=== PATIENT | female | born 1980 | race Two or more races ===

== ENCOUNTER 2022-09-06 14:47 | Emergency (ER) | payer OTHER, SELFPAY ==
--- NOTE | ~2022-09-06 | CT_ITS ---
EXAMINATION: CT HEAD WITHOUT CONTRAST CLINICAL INFORMATION: Left-sided headache COMPARISON: None TECHNIQUE: Contiguous axial imaging was performed from the skull base to vertex without intravenous administration of contrast. This CT examination was performed using dose optimization techniques as appropriate, variously including the following: *Automated exposure control *Adjustment of mA and/or kV according to patient size (this includes techniques or standardized protocols for targeted exams where dose is matched to indication/reason for exam; i.e. extremities or head) *Use of iterative reconstruction technique DLP: 633 mGy-cm FINDINGS: There is no evidence of acute intracranial hemorrhage or territorial infarction. No abnormal mass effect or midline shift is seen. Szymanski to white matter differentiation is well preserved. No extra-axial fluid collections are identified. No hydrocephalus. No significant volume loss. There is no abnormal attenuation within the brain parenchyma. No acute osseous or soft tissue abnormality. The mastoid air cells and visualized portions of the paranasal sinuses are well aerated. CT/CT head/brain wo IV con IMPRESSION: No acute intracranial pathology.
[2022-09-06 15:35] VITALS: BP 169/94; PULSE 96; RESP 16; TEMP 36.8; O2SAT 98; BMI 33.2
--- NOTE | 2022-09-06 15:35 | ED_ITS ---
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 Patient has taken Tylenol for the headache which has improved but she states it returned. <Mirtha Daigle MD - Last Filed: 09/06/22 22:00> Related Data Allergies/adverse reactions: Allergies Allergy/AdvReac Type Severity Reaction Status Date / Time No Known Allergies Allergy Unverified 09/06/22 15:42 <JESSICA Giron - Last Filed: 09/06/22 15:42> Review of Systems Review of Systems: Pertinent positives and negatives as stated in HPI <Mirtha Daigle MD - Last Filed: 09/06/22 22:00> [facility] Past Medical History Source: nursing notes reviewed <Mirtha Daigle MD - Last Filed: 09/06/22 22:00> Social History Social History: Social History Smoked in Last 30 Days: No Advance Directives: No Advance Directives Information Provided: No Patient : No <JESSICA Giron - Last Filed: 09/06/22 15:42> Physical Exam ED Vital Signs: Vital Signs - 24 hr 09/06/22 15:35 09/06/22 20:38 Temperature 98.2 F Pulse Rate 96 78 Respiratory Rate 16 16 Blood Pressure 169/94 H 130/83 Pulse Oximetry 98 99 Oxygen Delivery Method Room Air Room Air BMI result Body Mass Index 33.2 <JESSICA Giron - Last Filed: 09/06/22 15:42> Vital Signs - 24 hr 09/06/22 15:35 09/06/22 20:38 Temperature 98.2 F Pulse Rate 96 78 Respiratory Rate 16 16 Blood Pressure 169/94 H 130/83 Pulse Oximetry 98 99 Oxygen Delivery Method Room Air Room Air BMI result Body Mass Index 33.2 VITAL SIGNS: Reviewed. GENERAL: Well developed, well nourished, in no acute distress. HEAD: Normocephalic/atraumatic EYES: PERRLA, EOMI EARS: Ext canals without abnormality, TMs non-bulging and non-erythematous NOSE: Nares patent bilateral OROPHARYNX: no oral lesions noted, posterior pharynx clear and non-erythematous without noted tonsillar enlargement/erythema/exudates NECK: Supple, no adenopathy LUNGS: Normal breath sounds. No adventitious sounds or accessory muscle use. SpO2<98> CARDIOVASCULAR: Regular rate and rhythm without noted murmurs ABDOMEN: Soft, non-tender, non-distended with bowel sounds. MUSCULOSKELETAL: No tenderness, deformities, or effusions noted on gross inspection. EXTREMITIES: No cyanosis, clubbing or edema. SKIN: Inspection of the skin reveals no rashes NEUROLOGIC: Alert and oriented x 4. Strength and sensation to light touch were grossly intact x 4, no facial asymmetry, no pronator drift, cranial nerves 2-12 are grossly intact. <Mirtha Daigle MD - Last Filed: 09/06/22 22:00> Course Course Course Narrative: RME - 42 yo female with history of thyroid issues, HLD presents to the ER for evaluation of 1 week of burning left sided headache along with numbness of both hands and right toes (now resolved in the toes). She also reports nausea and dizziness. BP 171/99 in triage. No known hx HTN. Neuros intacts. Will get labs and CT head for further evaluation. Stable to go back to waiting room until treatment room available. <JESSICA Giron - Last Filed: 09/06/22 15:42> Medications Administered Discontinued Medications Generic Name Dose Route Start Last Admin Trade Name Freq PRN Reason Stop Dose Admin Acetaminophen 975 mg 09/06/22 21:29 09/06/22 21:37 Acetaminophen 325 Mg Tablet PO 09/06/22 21:30 975 mg ONCE ONE Administration Ibuprofen 400 mg 09/06/22 21:29 09/06/22 21:36 Ibuprofen 400 Mg Tablet PO 09/06/22 21:30 400 mg ONCE ONE Administration <JESSICA Giron - Last Filed: 09/06/22 15:42> Medications Administered Discontinued Medications Generic Name Dose Route Start Last Admin Trade Name Polly MARSHALL Reason Stop Dose Admin Acetaminophen 975 mg 09/06/22 21:29 09/06/22 21:37 Acetaminophen 325 Mg Tablet PO 09/06/22 21:30 975 mg ONCE ONE Administration Ibuprofen 400 mg 09/06/22 21:29 09/06/22 21:36 Ibuprofen 400 Mg Tablet PO 09/06/22 21:30 400 mg ONCE ONE Administration <Mirtha Daigle MD - Last Filed: 09/06/22 22:00> Medical Decision Making Medical Decision Making [facility] Narrative: 42-year-old female with history and clinical presentation after review of all investigations most consistent with likely migraine headache, there are no focal deficits. Patient will receive combination analgesics and I will also COVID-19 test her. COVID test negative. Patient is discharged home. <Mirtha burnette MD - Last Filed: 09/06/22 22:00> Differential Diagnosis Differential Diagnoses: The differential diagnosis associated with the presentation includes <Mirtha Daigle MD - Last Filed: 09/06/22 22:00> Please see the discussion above <Mirtha Daigle MD - Last Filed: 09/06/22 22:00> Lab Data [facility] Lab Attestation statement: I reviewed the patient's lab results. <Mirtha Daigle MD - Last Filed: 09/06/22 22:00> Please see the discussion above <Mirtha Daigle MD - Last Filed: 09/06/22 22:00> Result Diagrams: 09/06/22 16:06 09/06/22 16:06 <JESSICA Giron - Last Filed: 09/06/22 15:42> Labs: Lab Results 09/06/22 09/06/22 09/06/22 Range/Units 16:06 16:06 21:34 WBC 6.4 (4.8-10.8) X10*3/uL RBC 4.74 (4.20-5.50) X10*6/uL Hgb 13.7 (12.0-16.0) g/dl Hct 41.8 (37.0-47.0) % MCV 88.2 (80.0-98.0) fL MCH 28.9 (27.0-33.0) pg MCHC 32.8 (31.0-35.0) g/dl RDW 12.5 (11.0-16.0) % Plt Count 261 (160-400) X10*3/uL MPV 10.7 (9.4-12.3) fL Immature Gran % (Auto) 0.2 (0.0-0.4) % Neut % (Auto) 53.5 (45-73) % Lymph % (Auto) 34.4 (20-40) % Hall % (Auto) 10.5 (2-11) % Eos % (Auto) 0.9 (0-4) % Baso % (Auto) 0.5 (0-2) % Lymph # (Auto) 2.2 (1.2-4.9) X10*3/uL Hall # (Auto) 0.7 (0.1-1.2) X10*3/uL Eos # (Auto) 0.1 (0.0-0.4) X10*3/uL Baso # (Auto) 0.0 (0.0-0.2) X10*3/uL Abs Immat Gran (auto) 0.01 (0.00-0.03) X10*3/uL Absolute Neuts (auto) 3.4 (2.0-8.3) x10*3/uL Absolute Nucleated RBC 0.000 (0.0-0.012) X10*3/uL Nucleated RBC % (auto) 0.0 (0.0-0.2) /100WBC Sodium 141 (135-145) mmol/L Potassium 4.7 (3.3-5.1) mmol/L Chloride 108 (96-108) mmol/L Carbon Dioxide 26 (22-29) mmol/L Anion Gap 12 (12-20) BUN 9 (9-16) mg/dL Creatinine 0.76 (0.5-1.4) mg/dL Estim Creat Clear Calc 86.7 Estimated GFR > 60 Random Glucose 93 (60-115) mg/dL Calcium 9.3 (8.4-10.2) mg/dL Magnesium 2.2 (1.6-2.6) mg/dL Total Bilirubin 0.3 (0.0-1.0) mg/dL Direct Bilirubin < 0.2 (0.0-0.5) mg/dL AST 25 (5-31) U/L ALT 29 (0-31) U/L Alkaline Phosphatase 50 (39-117) U/L Total Protein 7.4 (6.5-8.0) g/dL Albumin 4.4 (3.5-5.0) g/dL TSH 1.70 (0.32-4.0) uIU/mL COVID-19 (JOANN) Negative (Negative) COVID-19 Clin Com See Note <JESSICA Giron - Last Filed: 09/06/22 15:42> Lab Results 09/06/22 09/06/22 09/06/22 Range/Units 16:06 16:06 21:34 WBC 6.4 (4.8-10.8) X10*3/uL RBC 4.74 (4.20-5.50) X10*6/uL Hgb 13.7 (12.0-16.0) g/dl Hct 41.8 (37.0-47.0) % MCV 88.2 (80.0-98.0) fL MCH 28.9 (27.0-33.0) pg MCHC 32.8 (31.0-35.0) g/dl RDW 12.5 (11.0-16.0) % Plt Count 261 (160-400) X10*3/uL MPV 10.7 (9.4-12.3) fL Immature Gran % (Auto) 0.2 (0.0-0.4) % Neut % (Auto) 53.5 (45-73) % Lymph % (Auto) 34.4 (20-40) % Hall % (Auto) 10.5 (2-11) % Eos % (Auto) 0.9 (0-4) % Baso % (Auto) 0.5 (0-2) % Lymph # (Auto) 2.2 (1.2-4.9) X10*3/uL Hall # (Auto) 0.7 (0.1-1.2) X10*3/uL Eos # (Auto) 0.1 (0.0-0.4) X10*3/uL Baso # (Auto) 0.0 (0.0-0.2) X10*3/uL Abs Immat Gran (auto) 0.01 (0.00-0.03) X10*3/uL Absolute Neuts (auto) 3.4 (2.0-8.3) x10*3/uL Absolute Nucleated RBC 0.000 (0.0-0.012) X10*3/uL Nucleated RBC % (auto) 0.0 (0.0-0.2) /100WBC Sodium 141 (135-145) mmol/L Potassium 4.7 (3.3-5.1) mmol/L Chloride 108 (96-108) mmol/L Carbon Dioxide 26 (22-29) mmol/L Anion Gap 12 (12-20) BUN 9 (9-16) mg/dL Creatinine 0.76 (0.5-1.4) mg/dL Estim Creat Clear Calc 86.7 Estimated GFR > 60 Random Glucose 93 (60-115) mg/dL Calcium 9.3 (8.4-10.2) mg/dL Magnesium 2.2 (1.6-2.6) mg/dL Total Bilirubin 0.3 (0.0-1.0) mg/dL Direct Bilirubin < 0.2 (0.0-0.5) mg/dL AST 25 (5-31) U/L ALT 29 (0-31) U/L Alkaline Phosphatase 50 (39-117) U/L Total Protein 7.4 (6.5-8.0) g/dL Albumin 4.4 (3.5-5.0) g/dL TSH 1.70 (0.32-4.0) uIU/mL COVID-19 (JOANN) Negative (Negative) COVID-19 Clin Com See Note <Mirtha Daigle MD - Last Filed: 09/06/22 22:00> Radiology Impression Radiologist Impression: My interpretation is in agreement with radiology's impression of the imaging study. <Mirtha Daigle MD - Last Filed: 09/06/22 22:00> Chronic Conditions Patient?s care impacted by: Other <Mirtha Daigle MD - Last Filed: 09/06/22 22:00> [facility] <Mirtha Daigle MD - Last Filed: 09/06/22 22:00> Discharge Plan Discharge Clinical Impression: Headache <JESSICA Giron - Last Filed: 09/06/22 15:42> Patient Disposition: Home, Self-Care <JESSICA Giron - Last Filed: 09/06/22 15:42> Instructions: Acute Headache (ED) <JESSICA Giron - Last Filed: 09/06/22 15:42> Additional Instructions: 1. Reanudar todos los medicamentos caseros seg?n lo prescrito. 2. Aumente la cantidad de agua que jessica. 3. Tylenol 1000 mg, por v?a oral, cada 6 horas seg?n sea necesario para controla r el dolor de zaina. No exceda los 4000 mg dentro de las 24 horas. 4. Ibuprofeno 400 mg, por v?a oral con leche o comida, cada 6 horas seg?n sea necesario para controlar el dolor de zaina. [place] haily medicamento con Tylenol para controlar a?n m?s fitzgerald malestar. 5. Llame al consultorio de fitzgerald proveedor de atenci?n primaria por la ma?bren y programe chantal traci para chantal reevaluaci?n y un manejo ambulatorio adicional. Regrese a la ethan de emergencias si los s?ntomas empeoran. 1. Resume all home medications as prescribed. 2. Increase the amount of water that you drink. 3. Tylenol 1000 mg, orally, every 6 hours as needed for headache control. Do not exceed 4000 mg within 24 hours. 4. Ibuprofen 400 mg, orally with milk or food, every 6 hours as needed for headache control. Please take this medication with the Tylenol to further control your discomfort. 5. Please call the office of your primary care provider in the morning and set up an appointment for re-evaluation and further outpatient management. Return to the ER for any worsening symptoms. <Chey Renschler, PA - Last Filed: 09/06/22 15:42> Print Language: Swiss <JESSICA Giron - Last Filed: 09/06/22 15:42>
[2022-09-06 16:10] LABS: MANUAL DIFF FLAG NO
[2022-09-06 16:12] LABS: Basophils Percent Auto 0.5 % (0-2); Eosinophils Absolute Auto 0.1 X10*3/uL (0.0-0.4); Eosinophils Percent Auto 0.9 % (0-4); Hematocrit 41.8 % (37.0-47.0); Hemoglobin 13.7 g/dl (12.0-16.0); Imm Gran Abs Auto 0.01 X10*3/uL (0.00-0.03); Imm Gran Pct Auto 0.2 % (0.0-0.4); Lymphocytes Absolute Auto 2.2 X10*3/uL (1.2-4.9); Lymphocytes Percent Auto 34.4 % (20-40); Mean Corpuscular HGB Conc 32.8 g/dl (31.0-35.0); Mean Corpuscular Hemoglobin 28.9 pg (27.0-33.0); Mean Corpuscular Volume 88.2 fL (80.0-98.0); Mean Platelet Volume 10.7 fL (9.4-12.3); Monocytes Absolute Auto 0.7 X10*3/uL (0.1-1.2); Monocytes Percent Auto 10.5 % (2-11); Neutrophils Absolute Auto 3.4 x10*3/uL (2.0-8.3); Neutrophils Percent Auto 53.5 % (45-73); Platelet Count 261 X10*3/uL (160-400); Red Blood Count 4.74 X10*6/uL (4.20-5.50); Red Cell Distribution Width 12.5 % (11.0-16.0); White Blood Count 6.4 X10*3/uL (4.8-10.8)
[2022-09-06 16:34] LABS: Alanine Aminotransferase 29 U/L (0-31); Albumin Level 4.4 g/dL (3.5-5.0); Alkaline Phosphatase 50 U/L (39-117); Anion Gap 12 (12-20); Aspartate Amino Transferase 25 U/L (5-31); Bilirubin Direct < 0.2 mg/dL (0.0-0.5); Bilirubin Total 0.3 mg/dL (0.0-1.0); Blood Urea Nitrogen 9 mg/dL (9-16); Calcium 9.3 mg/dL (8.4-10.2); Carbon Dioxide 26 mmol/L (22-29); Chloride 108 mmol/L (96-108); Creatinine Clr Calc Pharmacy 86.7; Estimated Glomerular Filt Rate > 60; Glucose Random 93 mg/dL (60-115); Magnesium 2.2 mg/dL (1.6-2.6); Potassium 4.7 mmol/L (3.3-5.1); Sodium 141 mmol/L (135-145); Total Protein 7.4 g/dL (6.5-8.0)
[2022-09-06 20:38] VITALS: BP 130/83; PULSE 78; RESP 16; O2SAT 99
[2022-09-06] MEDS: Ibuprofen 400 MG TABLET PO (21:36)
[2022-09-06] MEDS: Acetaminophen 325 MG TABLET 975 MG PO (21:37)
[2022-09-06 21:55] LABS: COVID-19 Test Negative (Negative); IDNOW Serial# 08D9AD1C
== END 2022-09-06 22:22 | disposition home or self-care (01) ==
PROVIDERS: Physician Assistant; Emergency Provider Student in an Organized Health Care Education/Training Program
DX: R51.9 Headache, unspecified (principal); Z20.822 Contact with and (suspected) exposure to COVID-19; Z20.828 Contact with and (suspected) exposure to other viral communicable diseases; Z79.899 Other long term (current) drug therapy
CPT/HCPCS: 36415; 70450; 80048; 80076; 83735; 84443; 85025; 87635; 99283; 99284

== ENCOUNTER 2023-04-11 08:24 | Emergency (ER) | payer MEDICAID, SELFPAY ==
--- NOTE | 2023-04-11 | ECG_ITS ---
Test Reason : chest pain Blood Pressure : / mmHG Vent. Rate : 101 BPM Atrial Rate : 101 BPM P-R Int : 128 ms QRS Dur : 082 ms QT Int : 338 ms P-R-T Axes : 060 054 042 degrees QTc Int : 438 ms Sinus tachycardia Otherwise normal ECG No previous ECGs available Referred By: Generic ED Physician Electronically Signed By:TRAN SOMMERS
--- NOTE | ~2023-04-11 | XR_ITS ---
EXAMINATION: XR chest 1V CLINICAL INFORMATION: Chest pain COMPARISON: None TECHNIQUE: XR chest 1V Tubes and lines: None Lungs and pleura: Both lungs are clear. Heart and mediastinum: The mediastinum is within normal limits.. Bones/soft tissue: Skeletal structures included are normal for patient's age. XR/XR chest 1V IMPRESSION: No radiographic evidence of acute cardiopulmonary disease.
[2023-04-11 08:33] VITALS: BP 135/90; BP 136/85; PULSE 100; PULSE 105; RESP 16; TEMP 36.8; O2SAT 100; O2SAT 98; BMI 35.5
[2023-04-11 08:42] VITALS: PULSE 99
--- NOTE | 2023-04-11 08:44 | PC.NURSE ---
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 pt a&ox3. pt reports left sided chest pain and epiogastric pain for one week. pt reports shortness of breath when walking up the stairs. pt reports the pain comes and goes. pt lung sounds clear bilaterally, sating between 99-100 on room air. abdomen soft non tender to touch with hypoactive bowel sounds on all 4 quadrants. pt denies nausea, vomiting and diarrhea. pt sinus tachy between 100-103 on tele. provider at bedside discussing pt care.
--- NOTE | 2023-04-11 08:50 | ED_ITS ---
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 Patient been having chest pain on and off mostly with exertion that been going for almost a year now. Related Data Allergies Allergy/AdvReac Type Severity Reaction Status Date / Time No Known Allergies Allergy Verified 04/11/23 08:37 Review of Systems 2 Review of Systems: All other systems are reviewed and are negative Constitutional: Reports as per HPI and Reports no additional constitutional complaints Eyes: Reports as per HPI and Reports no additional eye complaints Reports system reviewed and no additional complaints, except as documented Cardiovascular: Reports as per HPI and Reports no additional cardiovascular complaints Respiratory: Reports as per HPI and Reports no additional respiratory complaints Gastrointestinal: Reports as per HPI and Reports no additional gastrointestinal complaints Genitourinary: Reports no additional female genitourinary complaints Musculoskeletal: Reports no additional musculoskeletal complaints Skin/Breast: Reports system reviewed and no additional complaints, except as docu Psychiatric: Reports no additional psychiatric complaints Endocrine: Reports no additional endocrine complaints Hematologic/Lymphatic: Reports no additional hematologic/lymphatic complaints Allergic/Immunologic: Reports no additional allergic/immunologic complaints Reports system reviewed and no additional complaints, except as documented and Reports Abnormal speech present [facility] Social History Social History Alcohol intake: never Smoked in Last 30 Days: No Use of substances other than those prescribed or required for medical reasons: No Advance Directives: No Physical Exam 2 Vital Signs: Vital Signs: Last Vital Signs Temp 98.3 F 04/11/23 08:33 Pulse 93 04/11/23 10:00 Resp 12 04/11/23 10:00 BP 148/88 H 04/11/23 10:00 Pulse Ox 96 04/11/23 10:00 O2 Del Method Room Air 04/11/23 10:00 BMI result Body Mass Index 35.5 Vital signs have been reviewed and appear to be correct. Blood pressure elevated. Heart rate normal. Respiratory rate normal. Temperature normal. Oxygen saturation normal. Appearance: Alert. Oriented X3. No acute distress. Head: Normal external exam. Normocephalic. Atraumatic. No Perez signs noted. No raccoon eyes noted Eyes: PERRLA. EOMI. Conjunctiva and sclera normal. Eyelids normal. ENT: TM's Normal. Pharynx normal. Uvula midline. Moist mucous membranes. No trismus noted. No drooling noted. No muffled voice noted. Neck: Normal inspection. Neck supple. FROM. No adenopathy. Thyroid Normal. No meningeal signs. No neck mass noted. CVS: Normal heart rate and rhythm. Heart sound normal. No murmurs noted. Pulses normal throughout. Respiratory: No respiratory distress. Painless inspiration. Breath sounds normal. No wheezes/rales/rhonchi noted. Chest nontender. No accessory muscle usage noted or decreased air movement noted. Abdomen: Soft and nontender. Bowel sounds normal in all 4 quadrants. No distention noted. No organomegaly noted. No visible injury noted. Back: No CVA tenderness. Full range of motion noted. Skin: Skin warm and dry. Normal skin color. Normal skin turgor. No rashes/lesions/lacerations noted. Extremities: No lower extremity edema. Extremities exhibit normal range of motion. Extremities nontender. Neuro: Oriented X 3. Cranial nerve exam: II-XII are grossly intact No motor deficit. No sensory deficit. Reflexes normal. Course Course Course Narrative: 43-year-old female woke up with chest pain and palpitation. Patient has unremarkable cardiac /pulmonary workup today. Clinical exam and finding rule out pulmonary embolism/ACS. Medical Decision Making Differential Diagnosis Differential Diagnoses: The differential diagnosis associated with the presentation includes ( ACS, pneumonia, pleural effusion, pulmonary embolism, electrolyte abnormality, severe anemia.) Admission/Observation Consideration of admission/observation: Escalation of care including admission/observation considered Lab Data MDM Lab Attestation statement: I reviewed the patient's lab results. 04/11/23 08:56 04/11/23 08:56 Labs: Lab Results 04/11/23 04/11/23 Range/Units 08:56 09:47 WBC 8.4 (4.8-10.8) X10*3/uL RBC 4.47 (4.20-5.50) X10*6/uL Hgb 13.3 (12.0-16.0) g/dl Hct 39.9 (37.0-47.0) % MCV 89.3 (80.0-98.0) fL MCH 29.8 (27.0-33.0) pg MCHC 33.3 (31.0-35.0) g/dl RDW 12.6 (11.0-16.0) % Plt Count 221 (160-400) X10*3/uL MPV 11.9 (9.4-12.3) fL Immature Gran % (Auto) 0.5 H (0.0-0.4) % Neut % (Auto) 62.7 (45-73) % Lymph % (Auto) 26.4 (20-40) % [place] % (Auto) 8.3 (2-11) % Eos % (Auto) 1.3 (0-4) % Baso % (Auto) 0.8 (0-2) % Lymph # (Auto) 2.2 (1.2-4.9) X10*3/uL [place] # (Auto) 0.7 (0.1-1.2) X10*3/uL Eos # (Auto) 0.1 (0.0-0.4) X10*3/uL Baso # (Auto) 0.1 (0.0-0.2) X10*3/uL Abs Immat Gran (auto) 0.04 H (0.00-0.03) X10*3/uL Absolute Neuts (auto) 5.3 (2.0-8.3) x10*3/uL Absolute Nucleated RBC 0.000 (0.0-0.012) X10*3/uL Nucleated RBC % (auto) 0.0 (0.0-0.2) /100WBC D-Dimer High Sensitivty < 150 NG/ML Sodium 138 (135-145) mmol/L Potassium 3.8 (3.3-5.1) mmol/L Chloride 106 (96-108) mmol/L Carbon Dioxide 24 (22-29) mmol/L Anion Gap 12 (12-20) BUN 12 (9-16) mg/dL Creatinine 0.76 (0.5-1.4) mg/dL Estim Creat Clear Calc 88.9 Estimated GFR > 60 Random Glucose 100 (60-115) mg/dL Calcium 9.6 (8.4-10.2) mg/dL Troponin I High Sens < 2.7 (<3.5-17.0) ng/L Independent Interpretation I performed an independent interpretation of an: EKG ( Sinus tachycardia at 1 1 beats per minutes, normal intervals, normal axis deviation, no ST-T changes.) and Plain X-Ray ( chest: No acute intrathoracic pathology.) Radiology Impression Discussion of test interpretation with radiology: I have reviewed the radiologist's reading. Discharge Plan Discharge Clinical Impression: Chest pain Patient Disposition: Home, Self-Care Instructions: Chest Pain (ED)
[2023-04-11 09:10] LABS: MANUAL DIFF FLAG NO
[2023-04-11 09:12] LABS: Basophils Absolute Auto 0.1 X10*3/uL (0.0-0.2); Basophils Percent Auto 0.8 % (0-2); Eosinophils Absolute Auto 0.1 X10*3/uL (0.0-0.4); Eosinophils Percent Auto 1.3 % (0-4); Hematocrit 39.9 % (37.0-47.0); Hemoglobin 13.3 g/dl (12.0-16.0); Imm Gran Abs Auto 0.04 X10*3/uL (0.00-0.03); Imm Gran Pct Auto 0.5 % (0.0-0.4); Lymphocytes Absolute Auto 2.2 X10*3/uL (1.2-4.9); Lymphocytes Percent Auto 26.4 % (20-40); Mean Corpuscular HGB Conc 33.3 g/dl (31.0-35.0); Mean Corpuscular Hemoglobin 29.8 pg (27.0-33.0); Mean Corpuscular Volume 89.3 fL (80.0-98.0); Mean Platelet Volume 11.9 fL (9.4-12.3); Monocytes Absolute Auto 0.7 X10*3/uL (0.1-1.2); Monocytes Percent Auto 8.3 % (2-11); Neutrophils Absolute Auto 5.3 x10*3/uL (2.0-8.3); Neutrophils Percent Auto 62.7 % (45-73); Platelet Count 221 X10*3/uL (160-400); Red Blood Count 4.47 X10*6/uL (4.20-5.50); Red Cell Distribution Width 12.6 % (11.0-16.0); White Blood Count 8.4 X10*3/uL (4.8-10.8)
[2023-04-11 09:30] LABS: Anion Gap 12 (12-20); Blood Urea Nitrogen 12 mg/dL (9-16); Calcium 9.6 mg/dL (8.4-10.2); Carbon Dioxide 24 mmol/L (22-29); Chloride 106 mmol/L (96-108); Creatinine Clr Calc Pharmacy 88.9; Estimated Glomerular Filt Rate > 60; Glucose Random 100 mg/dL (60-115); Potassium 3.8 mmol/L (3.3-5.1); Sodium 138 mmol/L (135-145)
[2023-04-11 09:45] LABS: Troponin-I High Sensitivity < 2.7 ng/L (<3.5-17.0)
[2023-04-11 10:00] VITALS: BP 148/88; PULSE 93; RESP 12; O2SAT 96
[2023-04-11 10:51] LABS: D Dimer High Sensitivity < 150 NG/ML
[2023-04-11 11:21] LABS: Appearance Urine Clear; Color Urine Yellow; Glucose Urine UA Negative (Negative); Leukocyte Esterase Urine Negative (Negative); Nitrite Urine Negative (Negative); Urine Blood Negative (Negative); Urine Ketones Negative (Negative); Urine Protein Negative (Neg-Trace)
[2023-04-11 12:06] LABS: Troponin-I High Sensitivity < 2.7 ng/L (<3.5-17.0)
== END 2023-04-11 12:57 | disposition home or self-care (01) ==
PROVIDERS: Emergency Provider Emergency Medicine
DX: R07.89 Other chest pain (principal); F41.1 Generalized anxiety disorder; F43.0 Acute stress reaction; R06.02 Shortness of breath; Z79.899 Other long term (current) drug therapy
CPT/HCPCS: 36415; 71045; 80048; 81003; 84484; 85025; 85379; 93005; 99285

== ENCOUNTER 2023-04-12 14:14 | Outpatient (REF) | payer MEDICAID, SELFPAY ==
[2023-04-12 16:50] LABS: TSH reflex Free T4 2.18 uIU/mL (0.32-4.0)
== END 2023-04-12 14:15 | disposition home or self-care (01) ==
LOC: HO.HHCL 14:14
PROVIDERS: Visit Provider Emergency Medicine
DX: R07.9 Chest pain, unspecified (principal)
CPT/HCPCS: 36415; 84443

== ENCOUNTER 2024-04-11 08:03 | Outpatient (REF) | payer MEDICAID, SELFPAY ==
[2024-04-11 11:28] LABS: MANUAL DIFF FLAG NO
[2024-04-11 11:33] LABS: Basophils Absolute Auto 0.1 X10*3/uL (0.0-0.2); Basophils Percent Auto 0.9 % (0-2); Eosinophils Percent Auto 0.6 % (0-4); Hematocrit 36.7 % (37.0-47.0); Hemoglobin 11.8 g/dl (12.0-16.0); Imm Gran Abs Auto 0.02 X10*3/uL (0.00-0.03); Imm Gran Pct Auto 0.3 % (0.0-0.4); Lymphocytes Absolute Auto 1.5 X10*3/uL (1.2-4.9); Lymphocytes Percent Auto 21.3 % (20-40); Mean Corpuscular HGB Conc 32.2 g/dl (31.0-35.0); Mean Corpuscular Hemoglobin 28.5 pg (27.0-33.0); Mean Corpuscular Volume 88.6 fL (80.0-98.0); Mean Platelet Volume 12.1 fL (9.4-12.3); Monocytes Absolute Auto 0.5 X10*3/uL (0.1-1.2); Monocytes Percent Auto 6.8 % (2-11); Neutrophils Absolute Auto 4.9 x10*3/uL (2.0-8.3); Neutrophils Percent Auto 70.1 % (45-73); Platelet Count 220 X10*3/uL (160-400); Red Blood Count 4.14 X10*6/uL (4.20-5.50); Red Cell Distribution Width 13.3 % (11.0-16.0)
[2024-04-11 12:12] LABS: Alanine Aminotransferase 11 U/L (0-31); Albumin Level 4.1 g/dL (3.5-5.0); Alkaline Phosphatase 54 U/L (39-117); Anion Gap 10 (12-20); Aspartate Amino Transferase 15 U/L (5-31); Bilirubin Total 0.5 mg/dL (0.0-1.0); Blood Urea Nitrogen 15 mg/dL (9-16); Calcium 9.7 mg/dL (8.4-10.2); Carbon Dioxide 27 mmol/L (22-29); Chloride 106 mmol/L (96-108); Cholesterol 175 mg/dL (<200); Estimated Glomerular Filt Rate > 60; Glucose Random 90 mg/dL (60-115); HDL Cholesterol 67 mg/dL (>40); LDL Cholesterol Calculated 94 mg/dL (<100); Potassium 3.8 mmol/L (3.3-5.1); Sodium 139 mmol/L (135-145); Triglycerides 74 mg/dL (<150)
[2024-04-11 12:29] LABS: TSH reflex Free T4 2.05 uIU/mL (0.32-4.0)
== END 2024-04-11 08:04 | disposition home or self-care (01) ==
LOC: HO.HHCL 08:03
PROVIDERS: Visit Provider Internal Medicine Geriatric Medicine
DX: K59.09 Other constipation (principal); Z86.39 Personal history of other endocrine, nutritional and metabolic disease; E78.00 Pure hypercholesterolemia, unspecified
CPT/HCPCS: 36415; 80053; 80061; 84443; 85025

== ENCOUNTER 2024-04-25 15:19 | Outpatient (REF) | payer MEDICAID, SELFPAY | END 2024-04-25 15:20 | disposition home or self-care (01) | LOC: HO.US 15:19 | PROVIDERS: PCP Internal Medicine Geriatric Medicine; Visit Provider Internal Medicine Geriatric Medicine | DX: E04.1 Nontoxic single thyroid nodule (principal) | CPT/HCPCS: 76536 ==

== ENCOUNTER 2024-05-02 15:15 | Outpatient (REF) | payer MEDICAID, SELFPAY ==
--- NOTE | ~2024-05-02 | MM_ITS ---
EXAMINATION: MM SCREENING DIGITAL BREAST TOMOSYNTHESIS, BILATERAL CLINICAL INFORMATION: Screening. Asymptomatic. COMPARISON: Mammography: Baseline. TECHNIQUE: Digital breast mammography with tomosynthesis is performed in both the craniocaudal and mediolateral oblique views along with computer-aided detection (CAD). FINDINGS: The breasts are heterogeneously dense, which may obscure small masses (ACR BI-RADS breast composition Category c). There are no significant masses, abnormal calcifications, or other abnormalities. MM/MM tomosynthesis screening BI IMPRESSION: No mammographic evidence of malignancy. ASSESSMENT: BI-RADS BI-RADS 1 - Negative RECOMMENDATION: Routine annual mammography screening. 1 year F/U This examination should not preclude the clinical evaluation of a suspicious palpable abnormality. This patient's information was entered into a reminder system with a target due date for their next mammogram. Electronically signed by: Madonna Akers DO 05/14/2024 04:03 PM EDT
== END 2024-05-02 15:16 | disposition home or self-care (01) ==
LOC: HO.MAMMO 15:15
PROVIDERS: PCP Internal Medicine Geriatric Medicine; Visit Provider Internal Medicine Geriatric Medicine
DX: Z12.31 Encounter for screening mammogram for malignant neoplasm of breast (principal)
CPT/HCPCS: 77063; 77067

== ENCOUNTER → 2024-05-02 15:45 | Outpatient (BNV) | payer MEDICAID, SELFPAY | PROVIDERS: PCP Internal Medicine Geriatric Medicine; Visit Provider Internal Medicine | DX: Z12.31 Encounter for screening mammogram for malignant neoplasm of breast (principal) | CPT/HCPCS: 77063; 77067 ==

== ENCOUNTER 2024-05-26 | Outpatient (REF) | payer MEDICAID, SELFPAY ==
[2024-05-27 11:05] LABS: HPV 16,18/45 See PAP report
[2024-05-27 11:07] LABS: HPV 16,18/45 See PAP report
[2024-05-31 22:43] LABS: C. trachomatis RNA TMA Not Detected (Not Detected); N. gonorrhoeae RNA TMA Not Detected (Not Detected); Trichomonas (NAAT) Not Detected (Not Detected)
== END 2024-05-26 00:01 | disposition home or self-care (01) ==
LOC: HO.LNP
PROVIDERS: Visit Provider Nurse Practitioner Family
DX: Z12.4 Encounter for screening for malignant neoplasm of cervix (principal); Z11.51 Encounter for screening for human papillomavirus (HPV); Z11.3 Encounter for screening for infections with a predominantly sexual mode of transmission
CPT/HCPCS: 87491; 87591; 87624; 87661; 88175

== ENCOUNTER 2024-09-15 14:54 | Outpatient (AMB) | payer OTHER, SELFPAY ==
[2024-09-15 14:56] VITALS: BP 130/60; PULSE 76; O2SAT 99
--- NOTE | 2024-09-15 14:56 | A.OFFVIS_ITS ---
Vital Signs 09/15/24 14:56 Height 5 ft Weight 153 lb 7.068 oz BMI 30.0 BP 130/60 Blood Pressure Location Rt brachial Position Sitting Pulse 76 Pulse Source Pulse Oximeter Pulse Oximetry (%) 99 Oxygen Delivery Method Room Air Intake Visit Reasons: pre colonoscopy Intake Note: NEW PATIENT for initial screening, symptomatic (constipation). No FMHx. Chief Complaint; C/O constipation, and reflux with intermittent dysphagia, multiple episodes throughout the last year. Pt states that they deal with constipation frequently but have never attempted treatment for any of their sx to this point. Sometimes up to 1 week between BM. Typically 3-4 days on average. No additional concerns. Data Modeling Architect Required: Yes Data Modeling Architect Services: Data Modeling Architect Present Data Modeling Architect Name: [id number] Information Interpreted: clinical only Accompanied by: Self / Same As Patient Allergies No Known Allergies Allergy (Verified 09/15/24 14:56) HPI HPI pre colonoscopy: Details: 44 years old female is here today to discuss going for colonoscopy. Patient reports that she has been dealing with constipation for some time. On average bowel movements every 3-4 days, however sometimes she admits that sometimes no bowel movement for a week. Patient reports epigastric pain and on occasion acid reflux depending on what she eats. Patient denies dyspepsia, dysphagia or odynophagia. Denies melena, hematochezia, unintentional weight loss or ribbon like stools. Patient denies any nausea or vomiting. Pt never had colonoscopy in the past. No family history of CRC[facility] Medical History Constipation Family History Maternal Uncle Colon cancer Social History Alcohol intake: never Patient Tobacco Use Status: Never used Tobacco Review of Systems Const Denies weight gain and Denies weight loss ENT Reports no additional complaints, Denies dysphagia and Denies odynophagia Card Reports no additional complaints Resp Reports no additional complaints GI Reports abdominal pain (Epigastric), Denies belching, Denies melena, Denies bloating, Denies change in bowel habits, Reports constipation, Denies dysphagia, Denies excessive flatus, Denies dyspepsia, Denies heartburn, Denies diarrhea, Denies loose stools, Denies nausea, Denies odynophagia and Denies vomiting Reports no additional complaints Musc Reports no additional complaints Neuro Reports no additional complaints Psych Reports no additional complaints Endo Reports no additional complaints Physical Exam Vital Signs: Last Vital Signs Pulse 76 09/15/24 14:56 BP 130/60 09/15/24 14:56 Pulse Ox 99 09/15/24 14:56 Oxygen Delivery Method Room Air 09/15/24 14:56 BMI result Body Mass Index 30.0 Const General: healthy appearing and no acute distress Nutritional Appearance: obese Orientation/consciousness: patient oriented x3 Resp Effort & Inspection: normal respiratory effort, able to speak in complete sentences, no tracheal deviation and symmetric chest movement Auscultation: clear to auscultation bilaterally Cardio Rate: regular rate GI Inspection: Yes normal to inspection, No distended and Yes obesity Palpation (GI): Soft to palpation, not firm, nontender and No hepatosplenomegaly present Auscultation: normal bowel sounds General: Yes no CVA tenderness Back/Spine/Pelvis Back: no CVA tenderness Skin General skin exam: elasticity normal, turgor normal and dry skin Neuro General: patient oriented x3 Psych Appearance: grossly normal Mental Status: mental status grossly normal Assessment & Plan Assessment & Plan (1) Screen for colon cancer: Code(s): Z12.11 - Encounter for screening for malignant neoplasm of colon (2) Constipation: Code(s): K59.00 - Constipation, unspecified Qualifiers: Constipation type: slow transit constipation Qualified Code(s): K59.01 - Slow transit constipation (3) Postprandial epigastric pain: Code(s): R10.13 - Epigastric pain Plan Patient will avoid dietary triggers late night snacking. Staying upright for minimum 3 hours after meals discussed with patient. Patient reports epigastric pain occasionally will check liver panel, lipase, transglutaminase, vitamin levels. Patient will be sent for upper GI with barium swallow. For now we will hold off on sending script for PPI or H2 shmuel. We will re-evaluate after upper GI series. Patient was encouraged to avoid dietary triggers late night snacking. Staying upright for minimal 3 hours after meals discussed with her. Patient will start taking Senokot. Increased drooling in taking activity to promote better bowel motility. Patient will try senna for 2-3 weeks and is not effective she will call our office. Patient will follow-up in 3 months to discuss going for colonoscopy and upper endoscopy. She is agreeable to this plan and verbalizes understanding of instructions. She was given the opportunity to ask questions and all questions answered. Thank you for allowing me to participate in her care Orders: Orders Vitamin B12 and Folate Today R19.7 - Diarrhea, unspecified Liver Panel Today R74.01 - Elevation of levels of liver transaminase levels Vitamin D 25-OH (D2 and D3) Today E55.9 - Vitamin D deficiency, unspecified FL upper GI w Ba Swallow Today K21.9 - Gastro-esophageal reflux disease without esophagitis Transglutaminase IgA Today R10.9 - Unspecified abdominal pain Lipase Today R10.9 - Unspecified abdominal pain Medications: New sennosides (Natural Senna Laxative) 17.2 mg (2 x 8.6 mg) PO BEDTIME 60 tabs 3RF constipation K59.00 - Constipation, unspecified Coding Level of Care Code New Pt Level 3 (68671) Diagnoses Screen for colon cancer Z12.11 Slow transit constipation K59.01 Constipation type: slow transit constipation Postprandial epigastric pain R10.13 Time Spent (min) 40 Comment 30 minutes spent with patient and additional 10 minutes spent reviewing her records
--- OUTSIDE RECORDS SUMMARY | 2024-09-15 17:46 | XMS_ITS | Clinical Summary ---
Author Organization [facility] Address [address] [place] [address] Care Team Providers Care Development Technician Name Role Phone Lily Lee PA-C Primary Care Provider [phone] Source Comments PLEASE NOTE, if this patient is a minor, it may be UNLAWFUL to discuss sensitive information that is contained in these records (such as FAMILY PLANNING, MENTAL HEALTH or SUBSTANCE ABUSE) with the minor patient's parent or other person without the patient's specific authorization.[facility] Allergies No known active allergies Medications acetaminophen (TYLENOL) 500 mg tabletIndication s:Cough Take 1 Tab by mouth every 6 (six) hours as needed for pain or fever 30 Tab 9 Active aspirin-acetamin ophen-caffeine (EXCEDRIN MIGRAINE) 250-250-65 mg per tabletIndication s:Other migraine without status migrainosus, not intractable Take 1 Tablet by mouth every 6 (six) hours as needed for pain 30 Tablet 1 1 Active famotidine (PEPCID) 40 mg tabletIndication s:Gastroesophage al reflux disease, unspecified whether esophagitis present Take 1 Tablet by mouth once daily 90 Tablet 1 2 Active BINAXNOW COVID-19 AG SELF TEST kit Use as Directed on the Package 2 Active cyclobenzaprine (FLEXERIL) 10 mg tabletIndication s:Neck pain Take 1 Tablet by mouth 2 (two) times daily as needed for muscle spasms 20 Tablet 2 Active levothyroxine (SYNTHROID, LEVOXYL) 50 mcg tabletIndication s:Hypothyroidism , unspecified type TAKE 1 TABLET BY MOUTH EVERY DAY 90 Tablet 1 3 Active Active Problems Problem Noted Date Diagnosed Date Dizziness 01/21/2021 History of tubal ligation 11/01/2016 Overview (11/01/2016): 2011 Obese 11/01/2016 Hypothyroidism 04/27/2016 Elevated LDL cholesterol level 11/19/2015 Depression 11/19/2015 Vitamin D insufficiency 11/19/2015 Resolved Problems Problem Noted Date Diagnosed Date Resolved Date Thyromegaly 10/04/2015 12/16/2018 Overview (10/04/2015): 09/14/15 US soft tissue head/neck. Solid nodule measuring up to 1.3cm in the inferior pole of the right thyroid lobe measuring 1.3 x 1.2 x 0.8 cm. Internal vascularity demonstrated. No microcalcification. Immunizations Name Administration Dates Next Due INFLUENZA, SEASONAL, INJECTABLE, PRESERVATIVE FR EE 04/27/2016 TDAP 08/25/2015 Td (adult), 5 Lf tetanus toxoid, preservative fr ee 11/19/2015 Family History Medical History Relation Name Comments Diabetes Father Hypertension Father Diabetes Mother Hypertension Mother Relation Name Status Comments Father Alive Mother Alive Social History Tobacco Use Types Packs/Day Years Used Date Smoking Tobacco: Never Smokeless Tobacco: Never Tobacco Cessation:Counseling Given: Yes Alcohol Use Standard Drinks/Week Comments No 0 (1 standard drink = 0.6 oz pur e alcohol) Social Connections Answer Date Recorded Connectedness 0 02/13/2022 Financial Resource Strain Answer Date R ecorded Financial Resource Strain 0 2021 Stress Answer Date Recorded Stress 0 02/13/2022 Physical Activity Answer Date Recorded Physical Activity 0 03/09/2019 Food Insecurity Answer Date Recorded Food 0 02/13/2022 Transportation Needs Answer Date Record ed Transportation 0 02/13/2022 Housing Stability Answer Date Recorded Housing 0 02/13/2022 Safety and Environment Answer Date Kj rded Safety 0 02/13/2022 Utilities Answer Date Recorded Utilities 0 02/13/2022 Employment Answer Date Recorded Employment 0 03/09/2019 Comments No Sex and Gender Information Value Date Recorded Sex Assigned at Female 06/18/2017 10:27 AM PST Legal Sex Female 7:44 AM PST Gender Identity Female 06/18/2017 10:27 AM PST Sexual Orientation Straight 06/18/2017 10 :27 AM PST Occupation Industry Job Start Date Job End Date unemployed Not on file Not on file Not on file Last Filed Vital Signs Vital Sign Reading Time Taken Comments Blood Pressure 102/72 06/20/2022 11:05 AM EST Pulse 68 06/20/2022 11:05 AM EST Temperature 36.8 ??C (98.3 ??F) 06/20/2022 11:[address] Respiratory Rate 20 06/20/2022 11:05 AM EST Oxygen Saturation 97% 05/05/2019 4:01 PM EDT Inhaled Oxygen Concentration - - Weight 77.6 kg (171 lb) 06/20/2022 11:05 AM EST Height 153.5 cm (5' 0.43 ) 06/20/2022 11:[address] Body Mass Index 32.92 06/20/2022 11:05 AM EST Plan of Treatment Health Maintenance Due Date Last Done Comments HPV Screening 1978 Hepatitis C Screening 1978 Pap + HPV 1978 Tobacco Screening 1978 Imm-Hepatitis B (1 of 3 - 19 + 3-dose series) 1997 Cervical Cancer Screening 1999 Pap Smear 1999 Breast Cancer Screening (Mammogram) 2018 Depression Monitoring 05/16/2022 02/13/2022 , 10/06/2021, 06/27/2021, Additional history exists Annual Preventive Care Visit 10/06/2022, 12/16/2018, 11/01/2016, Additional history exists Relationship Safety Screening/Counseling 02/13/2023 02/13/2022, 10/06/2021, 06/27/2021, Additional history exists CT Colonography 2023 Colonoscopy 2023 Colorectal Cancer Screening 2023 FIT/gFOBT 2023 Fecal DNA 2023 Flexible Sigmoidoscopy 2023 Hypertension Screening (#1) 06/20/2023 TSH Monitoring 06/28/2023 06/28/2022, 03/03/2022, 06/29/2021, Additional history exists [id number] ( season) 2024 Imm-Influenza (#1) 2024 04/27/2016 Alcohol and Drug Screen 07/16/2024 02/14/20 22, 10/06/2021, 10/22/2020, Additional history exists Diabetes Screening 06/28/2025 06/28/2022, 0 10/11/2021, 06/29/2021, Additional history exists Imm-DTaP/Tdap/Td (3 - Td or Tdap) 11/18/2025 016, 08/25/2015 Lipid Screening 06/28/2027 06/28/2022, 09/14, 06/29/2021, Additional history exists HIV Screening Completed 12/06/2018, 12/06/2018 Cervical Ablation/Cold-Knife Conization Discontinued Cervical Cryotherapy Discontinued Colposcopy Discontinued Endometrial Biopsy Discontinued Excision/Leep Discontinued HPV Genotyping Discontinued Vaginal Pap Discontinued Vulvoscopy Discontinued Procedures Procedure Name Priority Date/Time Associated Diagnosis Comments THYROID CASCADING REFLEX PANEL Routine 06/28/2022 9:13 AM EST Hypothyroidism, unspecified type COMPREHENSIVE METABOLIC PANEL Routine 06/28/2022 9:13 AM EST Mixed hyperlipidemia LIPID PANEL Routine 06/28/2022 9:13 AM EST Mixed hyperlipidemia ANTIBODY HIV-1&HIV-2 SINGLE RESULT Routine 12/06/2018 10:29 AM EDT Encounter for laboratory examination from Last 3 Months or Most Recently Relevant to Health Maintenance Results * THYROID CASCADING REFLEX PANEL (06/28/2022 9:13 AM EST) TSH 1.36 0.40 - 4.50 mIU/L [facility] Comment: ?Reference Range ?> or = 20 Years ??0.40-4.50 ? Ranges ?First trimester ?0.26-2.66 ?Second trimester ?? 0.55-2.73 ?Third trimester ?0.43-2.91 Blood Blood / Unknown 06/28/2022 9 :13 AM EST 06/28/2022 9:13 AM EST us Lily Lee PA-C LAB - BLOOD DRAW Edited Resu lt - Final [facility] [address] [facility] [address] [place] [address], [facility] [address] [facility] [address]) [place] [address] * (ABNORMAL) LIPID PANEL (06/28/2022 9:13 AM EST) CHOLESTEROL, TOTAL 181 <200 mg/dL [facility] HDL CHOLESTEROL 50 > OR = 50 mg/dL [facility] TRIGLYCERIDES 113 <150 mg/dL [facility] LDL-CHOLESTEROL 109(H) 99 mg/dL (calc) [facility] Comment: Reference range: <100 Desirable range <100 mg/dL for primary prevention; ?? <70 mg/dL for patients with CHD or diabetic patients with > or = 2 CHD risk factors. LDL-C is now calculated using the Bill-Jimena calculation, which is a validated novel method providing better accuracy than the Friedewald equation in the estimation of LDL-C. Bill ROSS et al. FATIMAH. 2013;310(19): 3663-1144 (http://education.TempMine/faq/WDP381) CHOL/HDLC RATIO 3.6 <5.0 (calc) [facility] NON-HDL CHOLESTEROL 131(H) <130 mg/dL (calc) [facility] Comment: For patients with diabetes plus 1 major ASCVD risk factor, treating to a non-HDL-C goal of <100 mg/dL (LDL-C of <70 mg/dL) is considered a therapeutic option. Blood Blood / Unknown 06/28/2022 9 :13 AM EST 06/28/2022 9:13 AM EST us Lily Lee PA-C LAB - BLOOD DRAW Final Resul t [facility] [address] [address] [place] [address], [facility] [address] [place] [address] * COMPREHENSIVE METABOLIC PANEL (06/28/2022 9:13 AM EST) GLUCOSE 89 65 - 99 mg/dL [facility] Comment: ?Fasting reference interval UREA NITROGEN (BUN) 13 7 - 25 mg/dL [facility] CREATININE (blood) 0.70 0.50 - 0.99 mg/dL [facility] EGFR 109 > OR = 60 mL/min/1 .73m2 [facility] Comment: The eGFR is based on the CKD-EPI 2020 equation. To calculate the new eGFR from a previous Creatinine or Cystatin C result, go to https://www.kidney.org/professionals/ kdoqi/gfr%5Fcalculator BUN/CREATININE RATIO NOT APPLICABLE 6 - [facility] SODIUM 140 135 - 146 mmol/L [facility] POTASSIUM 4.1 3.5 - 5.3 mmol/L [facility] CHLORIDE 102 98 - 110 mmol/L [facility] CARBON DIOXIDE 28 20 - 32 mmol/L [facility] CALCIUM 9.8 8.6 - 10.2 mg/dL [facility] PROTEIN, TOTAL 7.2 6.1 - 8.1 g/dL [facility] ALBUMIN 4.3 3.6 - 5.1 g/dL [facility] GLOBULIN 2.9 1.9 - 3.7 g/dL (calc) [facility] ALBUMIN/GLOBUL IN RATIO 1.5 1.0 - 2.5 (calc) [facility] BILIRUBIN, TOTAL 0.3 0.2 - 1.2 mg/dL [facility] ALKALINE PHOSPHATASE 49 31 - 125 U/L [facility] AST 20 10 - 30 U/L [facility] ALT 21 6 - 29 U/L [facility] Blood Blood / Unknown 06/28/2022 9 :13 AM EST 06/28/2022 9:13 AM EST us Lily Lee PA-C LAB - BLOOD DRAW Edited Resu lt - Final [facility] [address] [address] [place] [address], [facility] [address] [facility] [place] [address] * HIV-1 & HIV-2 ANTIBODIES (12/06/2018 10:29 AM EDT) [facility] HIV 1 AND 2 ANTIBODY SCREEN NEGATIVE NEGATIVE [facility] Comment: This assay is a 4th generation assay allowing for earlier detection of HIV infection by detecting the presence of the HIV-1 p24 antigen as well as the traditional antibodies to HIV type 1 (including group O) and type 2. ??Use of a 4th generation assay is the current CDC recommendation for HIV screening. Blood specimen (specimen) Blood / Unknown 12/06/2018 10:29 AM EDT 12/06/2018 1:23 PM EDT Narrative [facility] - 12/06/2018 7:32 PM EDT [employer], a member of [address] [address] Biological Sciences Instructor - Dianna Trejo MD PT ID [id number] ORD# [id number] Araceli Shraddha [facility] - BLOOD DRAW Final Resu lt Performing Organization Address City/[facility]/ZIP Co de Phone Number [address] [address], from Last 3 Months or Most Recently Relevant to Health Maintenance Insurance [employer] Care Teams Development Technician Relationship Specialty Start Date End Date Lily Lee PA-C [address] [place] [address] PCP - General FAMILY MEDICINEJESSICA 06/15/21
--- OUTSIDE RECORDS SUMMARY | 2024-09-15 17:46 | XMS_ITS | Encounter Summary ---
Author Organization [facility] Address [address] [place] [address] [address] [place] [address] Care Team Providers Care Handle Sewer Name Role Phone Name, Arden WALDROP Primary Care Provider [phone] Reason for Visit * Reason Onset Date Comments New Patient 04/18/2023 Encounter Details Date Type Department Care Team (Late st Contact Info) Description 04/18/2023 Telephone [facility] [address] [place] [id number] Randall Whitman MD [address] [place] [address] [phone] New Patient Social History Tobacco Use Types Packs/Day Years Used Date Smoking Tobacco: Never Smokeless Tobacco: Never Comments Unknown Sex and Gender Information Value Date Recorded Sex Assigned at Female 04/12/2023 10:52 AM EDT Legal Sex Female 10:52 AM EDT Gender Identity Female 04/12/2023 10:52 AM EDT Sexual Orientation Don't know 04/12/2023 10 :52 AM EDT documented as of this encounter Miscellaneous Notes * Telephone Encounter - Fernando Mcdowell - 04/18/2023 3:29 PM EDT Pt has been transfer over to wait list for [employer] WORKER. EFFECTIVE SINCE 04/18/2023 documented in this encounter Plan of Treatment Upcoming Encounters Date Type Department Care Team (Late st Contact Info) Description 10/17/2024 3:15 PM EDT Office Visit [facility] [address] [place] [id number] Name, MD Arden [address] [place] [address] documented as of this encounter Visit Diagnoses Not on filedocumented in this encounter Care Teams Handle Sewer Relationship Specialty Start Date End Date Name, MD Arden [address] [place] [address] PCP - General Internal Medicine 04/10/24 documented as of this encounter
--- OUTSIDE RECORDS SUMMARY | 2024-09-15 17:46 | XMS_ITS | Clinical Summary ---
Author Organization [employer] Address [address] [facility] 7[address] [place] [address] Care Team Providers Care Station Cleaning Porter Name Role Phone Name, Arden WALDROP Primary Care Provider [phone] Allergies No known active allergies Medications ketotifen (Zaditor) 0.025 % ophthalmic solution Administer 1 drop into both eyes 2 times daily. 5 mL 4 Active Multiple Vitamin (Multivitamin Adult) tablet Take 1 tab orally daily 90 tablet 3 4 Active senna-docusate sodium (Senokot-S) 8.6-50 MG tablet Take 1 tablet by mouth Once per day. 30 tablet 11 4 01/16/20 25 Active Active Problems Problem Noted Date Diagnosed Date Cervical cancer screening 05/04/2024 Assessment & Plan (06/14/2024 7:16 PM EST): I pap completed today. Reviewed indications for screening and usual followup. Will contact with results. Repeat 3-5y if normal. Reviewed that minor cellular changes are common, and if these are noted, we will repeat pap in 1y. Obstructive sleep apnea 04/10/2024 H/O thyroid disease 04/12/2023 Migraine without aura or status migrainosus 03/17 Dizziness 01/21/2021 Obese 11/01/2016 History of tubal ligation 11/01/2016 Overview (04/10/2024): 2011 Hypothyroidism 04/27/2016 Vitamin D insufficiency 11/19/2015 Elevated LDL cholesterol level 11/19/2015 Depression 11/19/2015 Encounters Date Type Department Care Team Description 08/08/2024 Patient Outreach [facility] [address] [place] [address] NameArden MD SDOH Concerns ([facility] House #3 SDNE f/u_closed ) 07/29/[address] [address] Radha Viramontes MA chart prep 07/07/[address] [address] Sujata Deng RN 07/04/2024 Patient Outreach [address] [address] Arden Mcpherson MD Care Coordination ([facility] TC_LVM) 07/03/2024 [facility] Information Management [address] [place] [phone] Arden Mcpherson MD 07/02/[address] [address] Arden Mcpherson MD 06/18/2024 Patient Outreach [address] [address] Arden Mcpherson MD Care Coordination ([facility] HouseNE f/u ) from Last 3 Months Immunizations Name Administration Dates Next Due Influenza, seasonal, injectable, preservative fr ee 04/27/2016 Td (adult), 5 Lf tetanus tox oid, preservative free, adsorbed 11/19/2015 Tdap 08/25/2015 Social History Tobacco Use Types Packs/Day Years Used Date Smoking Tobacco: Never Smokeless Tobacco: Never Tobacco Cessation:Counseling Given: Not Answered Alcohol Use Standard Drinks/Week Comments Never 0 (1 standard drink = 0.6 oz pur e alcohol) Depression Answer Date Recorded Patient Health Questionnaire-9 Score 0 04/10/2024 Patient Health Questionnaire-9 Score 0 04/10/2024 Last PHQ-9: Questionnaire Data Not on file 0 04/10/2024 Housing Stability Answer Date Recorded What is your housing situation today? I have jem michelle 04/03/[address] you li ve. Do you have problems with any of the following? None of the above 04/03/2024 Food Insecurity Answer Date Recorded Within the past 12 months, y ou worried that your food would run out before you got money to buy more: Never True 04/03/2024 Within the past 12 months,th e food you bought just didn't last and you didn't have enough money to get more: Never True Transportation Answer Date Recorded In the past 12 months, has l ack of transportation kept you from medical appts, meetings, work or from getting things needed for daily living? No 04/03/2024 Utilities Answer Date Recorded In the past 12 months, has t he electric, gas, oil or water company threatened to shut off services in your home? Yes 04/14/2024 Depression Answer Date Recorded Patient Health Questionnaire-2 Score 0 04/10/2024 Internet Access Answer Date Recorded Internet Access Q1 Yes 04/10/2024 Internet Access Q2 Not on file 04/10/2024 Comments Unknown Sex and Gender Information Value Date Recorded Sex Assigned at Female 04/12/2023 10:52 AM EDT Legal Sex Female 10:52 AM EDT Gender Identity Female 04/12/2023 10:52 AM EDT Sexual Orientation Don't know 04/12/2023 10 :52 AM EDT Last Filed Vital Signs Vital Sign Reading Time Taken Comments Blood Pressure 112/74 05/26/2024 4:01 PM EST Pulse 79 05/26/2024 4:01 PM EST Temperature 37 ??C (98.6 ??F) 04/10/2024 10: 40 AM EDT Respiratory Rate 14 05/26/2024 4:0 1 PM EST Oxygen Saturation 99% 05/26/2024 4:01 PM EST Inhaled Oxygen Concentration - - Weight 63.4 kg (139 lb 12.8 oz) 05/26/2024 4:01 PM EST Height 152.4 cm (5') 05/26/2024 4:01 PM EST Body Mass Index 27.3 05/26/2024 4:01 PM EST Plan of Treatment Upcoming Encounters Date Type Department Care Team (Late st Contact Info) Description 10/17/2024 3:15 PM EDT Office Visit [facility] [address] [place] [phone] NameArden MD [address] [place] [phone] Health Maintenance Due Date Last Done Comments CT Colonography 1978 Colonoscopy 1978 Colorectal Cancer Screening 1978 FIT DNA/Cologuard 1978 FIT 1978 FOBT 1978 HIV Screening 1978 Sigmoidoscopy 1978 Alcohol/Substance Use Screening 1990 Family Planning (PISQ) 1993 Hepatitis C Screening 1996 Hepatitis B Vaccines (1 of 3 - 19+ 3-dose series) 1997 COVID-19 Vaccine (2023-2 5 season) 2024 Influenza Vaccine (#1) 2024 04/27/2016 Depression Screening 04/10/2025 04/10/2024, 04/10/2024 SDOH Screening 04/14/2025 04/14/2024 Tobacco Screening 05/26/2025 05/26/2024 DTaP/Tdap/Td Vaccines (3 - T d or Tdap) 11/18/2025 11/19/2015, 08/25/2015 Mammogram 05/02/2026 05/02/2024 Zoster Vaccines (1 of 2) 2028 Lipid Panel 04/11/2029 04/11/2024 Cervical Cancer Screening 05/26/2029 HPV/Cotest 05/26/2029 Pap Smear 05/26/2029 05/26/2024 RSV Patients and Patients Aged 60 years or older (1 - 1-dose 75+ series) 2053 HIB Vaccines Aged Out No longer eligi ble based on patient's age to complete this topic HPV Vaccines Aged Out No longer eligi ble based on patient's age to complete this topic Hepatitis A Vaccines Aged Out No long er eligible based on patient's age to complete this topic IPV Vaccines Aged Out No longer eligi ble based on patient's age to complete this topic Meningococcal Vaccine Aged Out No carol manuel eligible based on patient's age to complete this topic Pneumococcal Vaccine: Pediatrics (0 to 5 Years) and At-Risk Patients (6 to 49) Years) Aged Out No longer eligible b ased on patient's age to complete this topic RSV under 20 months Aged Out No longe r eligible based on patient's age to complete this topic Rotavirus Vaccines Aged Out No longer eligible based on patient's age to complete this topic Procedures Procedure Name Priority Date/Time Associated Diagnosis Comments PAP SMEAR Routine 05/26/2024 4:43 PM EST Cervical cancer screening BI MAMMOGRAM SCREENING TOMOSYNTHESIS BILATERAL Routine 05/02/2024 3:25 PM EDT Encounter for screening mammogram for malignant neoplasm of breast LIPID PANEL, STANDARD Routine 04/11/2024 8:07 AM EDT Elevated LDL cholesterol level from Last 3 Months or Most Recently Relevant to Health Maintenance Results * Pap Smear (05/26/2024 4:43 PM EST) Swab 05/26/2024 4:43 PM EST 05/27/2024 9:00 AM EST [facility] - 05/29/2024 8:49 AM EST ----- ------- Name: Felisa Barraza ? Age/Sex: 44/F ? : 1980 Unit#: [id number] ?? Attend Dr: ?Re05/26/24 ?Status: PRE REF ? Location: HO.LNP ?Disch: ? ----- ------- SPEC : [id number] ?RECD: 05/27/24 ? STATUS: ??SOUT ? REQ NUM: [id number] ? MARIAN: 05/26/24 ? SUBM DR: Cheyanne Spann JIG BORING MACHINE SET UP OPERATOR ? ENTERED: ??05/27/24 ?SP TYPE: Pap Smr ?OTHR : ? ORDERED: ??Pap Smear ? Interpretation ?? Satisfactory for evaluation. ?? Negative for intraepithelial lesion or malignancy. ? HPV High Risk: ??Negative ? HPV Genotyping 16: ??Negative ?? HPV Genotyping 18: ??Negative ?Clinical Information LMP: 05/12/2024 Previous PAP test: Unknown date, WNL ? Material Received ?? ThinPrep-Cervical ----- ------- Signed (signature on file) CHICO Bob ([facility]) 05/29/24 0849 ? ----- ------- ? END OF REPORT ? us Cheyanne Spann NP LAB CYTOLOGY ORDERABLES Final Re sult [facility] [address] [place] [address] [phone] * BI Mammogram Screening Tomosynthesis Bilateral (05/02/2024 3:25 PM EDT) Anatomical Region Laterality Modality Breast Bilateral Mammography 05/02/2024 3:25 PM EDT Narrative 05/14/2024 4:06 PM EDT ? [facility] [place] ? [address] [facility] ?[place] [id number] ? Mammography Report ? Signed ? Patient: Madi,Felisa ?MR#: [id number] ?? [id number] ? : 1980 ?Acct:[id number] ? Age/Sex: 44 / F ?ADM Date: 10/18/24 ? Loc: HO.MAMMO ? Attending Dr: Arden Mcpherson MD ? Ordering Physician: Arden Mcpherson MD ?Results: 1Negative ? Date of Service: 05/02/24 ?Follow Up: 1 Year From Orig ?? inal Mammogram ? Procedure(s): MM tomosynthesis screening BI ?? Accession Number(s): [id number] ? cc: Ky,Arden WALDROP ? EXAMINATION: ?? MM SCREENING DIGITAL BREAST TOMOSYNTHESIS, BILATERAL ? CLINICAL INFORMATION: ? Screening. Asymptomatic. ? COMPARISON: ?? Mammography: Baseline. ? TECHNIQUE: ?? Digital breast mammography with tomosynthesis is performed in both the ?? craniocaudal and mediolateral oblique views along with computer-aided ?? detection (CAD). ? FINDINGS: ?? The breasts are heterogeneously dense, which may obscure small masses ?? (ACR BI-RADS breast composition Category c). ? There are no significant masses, abnormal calcifications, or other ?? abnormalities. ? MM/MM tomosynthesis screening BI ?? IMPRESSION: ?? No mammographic evidence of malignancy. ? ASSESSMENT: ? BI-RADS BI-RADS 1 - Negative ? RECOMMENDATION: ?? Routine annual mammography screening. ? 1 year F/U ? This examination should not preclude the clinical evaluation of a ?? suspicious palpable abnormality. ? This patient's information was entered into a reminder system with a ?? target due date for their next mammogram. ? Electronically signed by: ??Madonna Akers DO ??05/14/2024 04:03 PM EDT ?? RP ? Dictated By: ?Madonna Akers DO ? Signed By: ?<Electronically signed by Madonna Akers, DO in OV> ? 05/14/24 1603 ? DD/ 1525 ? TD/TT: 05/02/24 1530 ? Fitness Studies Teacher: ? Procedure Note Donotuseinterpreter, Image - 05/14/2024 [facility] [address] [place], [place] [address] Mammography Report Signed Patient: Felisa BarrazaMR#: [id number] : 1980Acct:[id number] Age/Sex: 44 / FADM Date: 05/02/24 Loc: HO.MAMMO Attending Dr: Arden Mcpherson MD Ordering Physician: Arden Mcphersonesults: 1Negative Date of Service: 05/02/24Follow Up: 1 Year From Orig inal Mammogram Procedure(s): MM tomosynthesis screening BI Accession Number(s): [id number] cc: Arden Mcpherson MD EXAMINATION: MM SCREENING DIGITAL BREAST TOMOSYNTHESIS, BILATERAL CLINICAL INFORMATION: Screening. Asymptomatic. COMPARISON: Mammography: Baseline. TECHNIQUE: Digital breast mammography with tomosynthesis is performed in both the craniocaudal and mediolateral oblique views along with computer-aided detection (CAD). FINDINGS: The breasts are heterogeneously dense, which may obscure small masses (ACR BI-RADS breast composition Category c). There are no significant masses, abnormal calcifications, or other abnormalities. MM/MM tomosynthesis screening BI IMPRESSION: No mammographic evidence of malignancy. ASSESSMENT: BI-RADS BI-RADS 1 - Negative RECOMMENDATION: Routine annual mammography screening. 1 year F/U This examination should not preclude the clinical evaluation of a suspicious palpable abnormality. This patient's information was entered into a reminder system with a target due date for their next mammogram. Electronically signed by: Madonna Akers DO 05/14/2024 04:03 PM EDT Dictated By: Madonna Akers DO Signed By: <Electronically signed by Madonna Akers DO in OV> 05/14/24 1603 DD/ 1525 TD/TT: 05/02/24 1530 Fitness Studies Teacher: us Arden Mcpherson MD IMG BI PROCEDURES Final Result * Lipid Panel, Standard (04/11/2024 8:07 AM EDT) Triglycerides 74 <150 mg/dL [facility] Comment:Desirable Triglyceri de: less than 150 mg/dLBorderline High Triglyceride 150-199 mg/dLHigh Triglyceride: 200-499 mg/dLVery High Triglyceride: greater than or equal to 5OO mg/dL Cholesterol 175 <200 mg/dL [facility] Comment:Desirable Cholestero l: less than 200 mg/dLBorderline High Cholesterol: 200-239 mg/dLHigh Cholesterol: greater than 239 mg/dL LDL Cholesterol Calculated 94 <100 mg/dL [facility] Comment:Desirable LDL: less than 100 mg/dLNear Optimal/Above Optimal LDL: 110- 129 mg/dLBorderline High LDL: 130-159 mg/dLHigh LDL: 160-189 mg/dLVery High LDL: greater than or equal to 190 mg/dL HDL Cholesterol 67 >40 mg/dL [facility] Comment:Desirable HDL: great er than 40 mg/dL Note: This HDL assay may give artificially low results in patients with liver disease. Blood Venous blood specimen / Unknown 04/11/2024 8:07 AM EDT 04/11/2024 11:38 AM EDT us Arden Mcpherson MD LAB BLOOD ORDERABLES Final Resul t [facility] [address] [place] [address] [phone] from Last 3 Months or Most Recently Relevant to Health Maintenance Insurance [facility] C3 Care Teams Station Cleaning Porter Relationship Specialty Start Date End Date Name, MD Arden [address] [place] [address] PCP - General Internal Medicine 04/10/24
== END 2024-09-15 16:01 | disposition home or self-care (01) ==
PROVIDERS: PCP Internal Medicine Geriatric Medicine; Visit Provider Nurse Practitioner Family
DX: K59.01 Slow transit constipation (principal); R10.13 Epigastric pain; Z12.11 Encounter for screening for malignant neoplasm of colon; Z01.818 Encounter for other preprocedural examination
CPT/HCPCS: 99203

== ENCOUNTER → 2024-09-15 14:54 | Outpatient (BNVA) | payer OTHER, SELFPAY | PROVIDERS: PCP Internal Medicine Geriatric Medicine; Visit Provider Nurse Practitioner Family | DX: Z12.11 Encounter for screening for malignant neoplasm of colon (principal); K59.01 Slow transit constipation; R10.13 Epigastric pain | CPT/HCPCS: 99202 ==

== ENCOUNTER 2024-09-22 10:28 | Outpatient (REF) | payer OTHER, SELFPAY ==
[2024-09-22 11:47] LABS: Alanine Aminotransferase 17 U/L (0-31); Albumin Level 4.3 g/dL (3.5-5.0); Alkaline Phosphatase 56 U/L (39-117); Aspartate Amino Transferase 21 U/L (5-31); Bilirubin Direct 0.2 mg/dL (0.0-0.5); Bilirubin Total 0.5 mg/dL (0.0-1.0); Lipase 21 U/L (8-78); Total Protein 7.5 g/dL (6.5-8.0)
--- OUTSIDE RECORDS SUMMARY | 2024-09-22 11:51 | XMS_ITS | Clinical Summary ---
Author Organization [facility] Address [address] [place] [address] Care Team Providers Care Door Frame Builder Name Role Phone Lily Lee PA-C Primary Care Provider Source Comments PLEASE NOTE, if this patient [...] 06/28/2023 06/28/2022, 03/03/2022, 06/29/2021, Additional history exists [id number] ( season) 2024 Imm-Influenza (#1) 2024 04/27/2016 [...] EST) TSH 1.36 0.40 - 4.50 mIU/L [facility] Comment: ?Reference Range ?> or = 20 Years ??0.40-4.50 ? Ranges ?First trimester ?0.26-2.66 ?Second trimester ?? 0.55-2.73 ?Third trimester ?0.43-2.91 Blood Blood / Unknown 06/28/2022 9 :13 AM EST 06/28/2022 9:13 AM EST us Lily Lee PA-C LAB - BLOOD DRAW Edited Resu lt - Final [employer] [facility] [address] [facility] [address]RD [place] [address], [employer] [place] [facility] [address] [facility] (NL[address]) [place] [address] * (ABNORMAL) LIPID PANEL (06/28/2022 9:13 AM EST) CHOLESTEROL, TOTAL 181 <200 mg/dL [facility] HDL CHOLESTEROL 50 > OR = 50 mg/dL [facility] TRIGLYCERIDES 113 <150 mg/dL [employer] [employer] [place] [employer] LDL-CHOLESTEROL 109(H) 99 mg/dL (calc) [facility] Comment: Reference range: <100 Desirable range <100 mg/dL for primary prevention; ?? <70 mg/dL for patients with CHD or diabetic patients with > or = 2 CHD risk factors. LDL-C is now calculated using the Bill-Jimena calculation, which is a validated novel method providing better accuracy than the Friedewald equation in the estimation of LDL-C. Bill ROSS et al. FATIMAH. 2013;310(19): 2871-3288 (http://education.Airizu/faq/MAV406) CHOL/HDLC RATIO 3.6 <5.0 (calc) [facility] NON-HDL CHOLESTEROL 131(H) <130 mg/dL (calc) [facility] Comment: For patients with diabetes plus 1 major ASCVD risk factor, treating to a non-HDL-C goal of <100 mg/dL (LDL-C of <70 mg/dL) is considered a therapeutic option. Blood Blood / Unknown 06/28/2022 9 :13 AM EST 06/28/2022 9:13 AM EST us Lily Lee PA-C LAB - BLOOD DRAW Final Resul t [employer] [facility] [address] [facility] [address] [place] [address], [employer] [facility] [address] [facility] (NL[address]) [place] [address] * COMPREHENSIVE METABOLIC PANEL (06/28/2022 9:13 AM EST) GLUCOSE 89 65 - 99 mg/dL [employer] [employer] [facility] Comment: ?Fasting reference interval UREA NITROGEN (BUN) 13 7 - 25 mg/dL [employer] CREATININE (blood) 0.70 0.50 - 0.99 mg/dL [employer] [employer] [facility] EGFR 109 > OR = 60 mL/min/1 .73m2 [employer] [employer] [facility] Comment: The eGFR is based on the CKD-EPI 2020 equation. To calculate the new eGFR from a previous Creatinine or Cystatin C result, go to https://www.kidney.org/professionals/ kdoqi/gfr%5Fcalculator BUN/CREATININE RATIO NOT APPLICABLE 6 - [employer] SODIUM 140 135 - 146 mmol/L [employer] [employer] [facility] POTASSIUM 4.1 3.5 - 5.3 mmol/L [employer] CHLORIDE 102 98 - 110 mmol/L [facility] CARBON DIOXIDE 28 20 - 32 mmol/L [facility] CALCIUM 9.8 8.6 - 10.2 mg/dL [facility] PROTEIN, TOTAL 7.2 6.1 - 8.1 g/dL [employer] ALBUMIN 4.3 3.6 - 5.1 g/dL [facility] GLOBULIN 2.9 1.9 - 3.7 g/dL (calc) [facility] ALBUMIN/GLOBUL IN RATIO 1.5 1.0 - 2.5 (calc) [facility] BILIRUBIN, TOTAL 0.3 0.2 - 1.2 mg/dL [facility] ALKALINE PHOSPHATASE 49 31 - 125 U/L [facility] AST 20 10 - 30 U/L [facility] ALT 21 6 - 29 U/L [facility] Blood Blood / Unknown 06/28/2022 9 :13 AM EST 06/28/2022 9:13 AM EST us Lily Lee PA-C LAB - BLOOD DRAW Edited Resu lt - Final [facility] [address] [facility] [address] [place] [address], [facility] [address] [facility] (NL[address]) [place] [address] * HIV-1 & HIV-2 ANTIBODIES (12/06/2018 10:29 AM EDT) [facility] HIV 1 AND 2 ANTIBODY SCREEN NEGATIVE NEGATIVE [employer] [facility] Comment: This assay is a 4th generation [...] AM EDT 12/06/2018 1:23 PM EDT Narrative [employer] - 12/06/2018 7:32 PM EDT [employer], a member of [address] [address] Wire Technician - Dianna Trejo MD PT ID [id number] ORD# [id number] Araceli Shraddha [facility] LAB - BLOOD DRAW Final Resu lt Performing Organization Address City/[facility]/ZIP Co de Phone Number [address] [address], from Last 3 Months or Most Recently Relevant to Health Maintenance Insurance [employer] Care Teams Door Frame Builder Relationship Specialty Start Date End Date Lily Lee PA-C [address] [place] [address] PCP - General FAMILY MEDICINEJESSICA 06/15/21
[2024-09-22 12:10] LABS: Folate 14.4 ng/mL (> or = 4.0); Vitamin B12 488 pg/mL (200-900)
[2024-09-23 16:28] LABS: Transglutaminase IgA <1.0 U/mL
[2024-09-26 17:37] LABS: Vitamin D 25-OH, D2 <4 ng/mL; Vitamin D 25-OH, D3 14 ng/mL; Vitamin D 25-OH, Total 14 ng/mL (30-100)
== END 2024-09-22 10:29 | disposition home or self-care (01) ==
LOC: HO.LAB 10:28
PROVIDERS: PCP Internal Medicine Geriatric Medicine; Visit Provider Nurse Practitioner Family
DX: R10.9 Unspecified abdominal pain (principal); E55.9 Vitamin D deficiency, unspecified; R74.01 Elevation of levels of liver transaminase levels; R19.7 Diarrhea, unspecified
CPT/HCPCS: 36415; 80076; 82306; 82607; 82746; 83690; 86364

== ENCOUNTER 2024-10-20 08:18 | Outpatient (REF) | payer OTHER, SELFPAY ==
--- OUTSIDE RECORDS SUMMARY | 2024-10-20 08:42 | XMS_ITS | Clinical Summary ---
Author Organization [facility] Address [address] [place] [address] Care Team Providers Care Deputy Sheriff Court Services Name Role Phone Lily Lee PA-C Primary [...] cm. Internal vascularity demonstrated. No microcalcification. Immunizations Immunization Administration Dates Next Due INFLUENZA, SEASONAL, INJECTABLE, [...] Health Maintenance Due Date Last Done Comments Anxiety Screening 1980 HPV Screening 1980 Hepatitis C Screening 1980 [...] Screening (#1) 06/20/2023 TSH Monitoring 06/28/2023 06/28/2022, 03/2 03/2022, 06/29/2021, Additional history exists [id number] ( season) 2024 Imm-Influenza (#1) 2024 04/27/2016 [...] EST) TSH 1.36 0.40 - 4.50 mIU/L [email or web address] Comment: ?Reference Range ?> or = 20 Years ??0.40-4.50 ? Ranges ?First trimester ?0.26-2.66 ?Second trimester ?? 0.55-2.73 ?Third trimester ?0.43-2.91 Blood Blood / Unknown 06/28/2022 9 :13 AM EST 06/28/2022 9:13 AM EST us Lily Lee PA-C LAB - BLOOD DRAW Edited Resu lt - Final [facility] [place] [employer] [address] [facility] [address] [place] [address], [facility] [place] [employer] [address] [facility] (NL[address]) [place] [address] * (ABNORMAL) LIPID PANEL (06/28/2022 9:13 AM EST) CHOLESTEROL, TOTAL 181 <200 mg/dL [email or web address] HDL CHOLESTEROL 50 > OR = 50 mg/dL [email or web address] TRIGLYCERIDES 113 <150 mg/dL [email or web address] LDL-CHOLESTEROL 109(H) 99 mg/dL (calc) [email or web address] Comment: Reference range: <100 Desirable range <100 mg/dL for primary prevention; ?? <70 mg/dL for patients with CHD or diabetic patients with > or = 2 CHD risk factors. LDL-C is now calculated using the Bill-Hess calculation, which is a validated novel method providing better accuracy than the Friedewald equation in the estimation of LDL-C. Bill ROSS et al. FATIMAH. 2013;310(19): 3101-5613 (http://education.QWASI Technology/faq/RET335) CHOL/HDLC RATIO 3.6 <5.0 (calc) [email or web address] NON-HDL CHOLESTEROL 131(H) <130 mg/dL (calc) [email or web address] Comment: For patients with diabetes plus 1 major ASCVD risk factor, treating to a non-HDL-C goal of <100 mg/dL (LDL-C of <70 mg/dL) is considered a therapeutic option. Blood Blood / Unknown 06/28/2022 9 :13 AM EST 06/28/2022 9:13 AM EST us Lily Lee PA-C LAB - BLOOD DRAW Final Resul t [facility] [address] [facility] [address] [place] [address], [facility] [address] [facility] (NL[address]) [place] [address] * COMPREHENSIVE METABOLIC PANEL (06/28/2022 9:13 AM EST) GLUCOSE 89 65 - 99 mg/dL [facility] Comment: ?Fasting reference interval UREA NITROGEN (BUN) 13 7 - 25 mg/dL [facility] CREATININE (blood) 0.70 0.50 - 0.99 mg/dL [facility] EGFR 109 > OR = 60 mL/min/1 .73m2 [facility] Comment: The eGFR is based on the CKD-EPI 2020 equation. To calculate the new eGFR from a previous Creatinine or Cystatin C result, go to https://www.kidney.org/professionals/ kdoqi/gfr%5Fcalculator BUN/CREATININE RATIO NOT APPLICABLE 6 - [facility] SODIUM 140 135 - 146 mmol/L [facility] POTASSIUM 4.1 3.5 - 5.3 mmol/L [facility] CHLORIDE 102 98 - 110 mmol/L [facility] CARBON DIOXIDE 28 20 - 32 mmol/L [facility] CALCIUM 9.8 8.6 - 10.2 mg/dL [facility] PROTEIN, TOTAL 7.2 6.1 - 8.1 g/dL [facility] ALBUMIN 4.3 3.6 - 5.1 g/dL [facility] GLOBULIN 2.9 1.9 - 3.7 g/dL (calc) [facility] ALBUMIN/GLOBUL IN RATIO 1.5 1.0 - 2.5 (calc) [facility] BILIRUBIN, TOTAL 0.3 0.2 - 1.2 mg/dL [facility] ALKALINE PHOSPHATASE 49 31 - 125 U/L [facility] AST 20 10 - 30 U/L [facility] ALT 21 6 - 29 U/L [facility] Blood Blood / Unknown 06/28/2022 9 :13 AM EST 06/28/2022 9:13 AM EST Lily Lee PA-C LAB - BLOOD DRAW Edited Resu lt - Final [facility] [address] [facility] [address] [place] [address], [place] [facility] [address] [facility] ([address]) [place] [address] * HIV-1 & HIV-2 ANTIBODIES (12/06/2018 10:29 AM EDT) [facility] HIV 1 AND 2 ANTIBODY SCREEN NEGATIVE NEGATIVE [employer] [facility] Comment: This assay is a 4th [...] AM EDT 12/06/2018 1:23 PM EDT Narrative [facility] - 12/06/2018 7:32 PM EDT [employer], a member of [address] [address] Supervisor Travel Trailer - Dianna Trejo MD PT ID [id number] ORD# [id number] [facility] LAB - BLOOD DRAW Final Resu lt Performing Organization Address City/[facility] Co de Phone Number [address] [address], from Last 3 Months or Most Recently Relevant to Health Maintenance Insurance [employer] Care Teams Deputy Sheriff Court Services Relationship Specialty Start Date End Date Lily Lee PA-C [address] [place] [address] PCP - General FAMILY MEDICINEJESSICA 06/15/21
--- OUTSIDE RECORDS SUMMARY | 2024-10-20 08:42 | XMS_ITS | Encounter Summary ---
Author Organization [employer] Address [address] [place] [address] 7t [place] [address] Care Team Providers Care Manager Nuclear Name Role Phone Name, Arden WALDROP Primary Care Provider [phone] Reason for Visit * Reason Onset Date Comments New Patient 04/18/2023 Encounter Details Date Type Department Care Team (Late st Contact Info) Description 04/18/[address] [facility] [address] [place] [address] [phone] Randall Whitman MD [address], [place] [phone] New Patient Social History Tobacco Use Types [...] been transfer over to wait list for HAND ROLLER. EFFECTIVE SINCE 04/18/2023 documented in this encounter Plan of Treatment Upcoming Encounters Date Type Department Care Team (Late st Contact Info) Description 02/04/2025 3:15 PM EDT Office Visit [facility] [address] [place] [address] [phone] Name, MD Arden [address] [place] [address] documented as of this encounter Visit Diagnoses Not on filedocumented in this encounter Care Teams Manager Nuclear Relationship Specialty Start Date End Date Name, MD Arden [address] [place] [address] PCP - General Internal Medicine 04/10/24 documented as of this encounter
--- OUTSIDE RECORDS SUMMARY | 2024-10-20 08:42 | XMS_ITS | Encounter Summary ---
Author Organization [employer] Address [address] [facility] 7t [place] [address] Care Team Providers Care Software Technical Lead Name Role Phone NameArden MD Primary Care Provider [phone] Reason for Referral * Imaging (Routine) - Authorized Specialty Diagnoses / Procedures Referred By Julio pickard Referred To Contact Radiology Diagnoses Thyroid nodule Procedures US Guided Thyroid Biopsy Arden Mcpherson MD [address] [place] [address] Phone: tel: fax: [address] Phone: tel: fax: Referral ID Status Reason Start Date Expiration Date V isits Requested Visits Authorized [id number] Authorized 10/17/2024 10/17/2025 1 1 Reason for Visit * Reason Comments Follow-up Encounter Details Date Type Department Care Team (Late st Contact Info) Description 10/17/2024 3:15 PM EDT Office Visit [facility] [address] [place] [address] [phone] Arden Mcpherson MD [address] [place], [place] [phone] Thyroid nodule (Primary Dx) Social History Tobacco Use Types Packs/Day Years [...] your housing situation today? I have jem martinez 04/03/[address] you li [...] AM EDT documented as of this encounter Last Filed Vital Signs Vital Sign Reading Time Taken Comments Blood Pressure 120/72 10/17/2024 2:54 PM EDT Pulse 83 10/17/2024 2:54 PM EDT Temperature 36.8 ??C (98.3 ??F) 10/17/2024 2:54 PM ED T Respiratory Rate 14 10/17/2024 2:5 4 PM EDT Oxygen Saturation 98% 10/17/2024 2:54 PM EDT Inhaled Oxygen Concentration - - Weight 67.9 kg (149 lb 12.8 oz) 10/17/2024 2:54 PM EDT Height 152.4 cm (5') 10/17/2024 2:54 PM EDT Body Mass Index 29.26 10/17/2024 2:54 PM EDT documented in this encounter Progress Notes * Arden Mcpherson MD - 10/17/2024 3:15 PM EDT Subjective Patient ID: Felisa Barraza is a 44 y.o. female who presents for Follow-up. Patient comes for a follow-up visit. She is feeling well today. She has a personal history of thyroid nodule. She had ultrasound done last year that meet criteria for FNA biopsy. Unfortunately patient lost her insurance and the test was never done.. She recently regained insurance coverage. She denies symptoms of hyper or hypothyroidism. Review of Systems Constitutional: Negative for chills and fever. HENT: Negative for sore throat. Respiratory: Negative for cough, shortness of breath and wheezing. Cardiovascular: Negative for chest pain, palpitations and leg swelling. Gastrointestinal: Negative for abdominal pain. Endocrine: Negative for cold intolerance, heat intolerance and polyphagia. Visit Vitals BP 120/72 (BP Location: Left arm, Patient Position: Sitting, BP Cuff Size: Adult) Pulse 83 Temp 98.3 ??F (36.8 ??C) (Temporal) Resp 14 Ht 5' (1.524 m) Wt 149 lb 12.8 oz (67.9 kg) SpO2 98% BMI 29.26 kg/m?? Smoking Status Never BSA 1.7 m?? Objective Physical Exam Constitutional: Appearance: Normal appearance. Neck: Comments: I did not palpate any thyroid nodules Cardiovascular: Rate and Rhythm: Normal rate and regular rhythm. Heart sounds: No murmur heard. No gallop. Pulmonary: Effort: Pulmonary effort is normal. No respiratory distress. Breath sounds: Normal breath sounds. No wheezing. Musculoskeletal: Right lower leg: No edema. Left lower leg: No edema. Neurological: Mental Status: She is alert. Lab Results Component Value Date WBC 7.0 04/11/2024 HGB 11.8 (L) 04/11/2024 HCT 36.7 (L) 04/11/2024 MCV 88.6 04/11/2024 PLT 220 04/11/2024 Lab Results Component Value Date GLUCOSE 90 04/11/2024 NA 139 04/11/2024 K 3.8 04/11/2024 CO2 27 04/11/2024 CL 106 04/11/2024 BUN 15 04/11/2024 CREATININE 0.76 04/11/2024 Lab Results Component Value Date TSH 2.05 04/11/[address] [address] Ultrasound Report Signed with Richard Patient: Felisa Barraza MR#: [id number] : 1980 Acct:[id number] Age/Sex: 44 / F ADM Date: 04/25/24 Loc: HO.US Attending Dr: Arden Mcpherson MD Ordering Physician: Arden Mcpherson MD Date of Service: 04/25/24 Procedure(s): US thyroid Accession Number(s): [id number] cc: Ardne Mcpherson MD ADDENDUM Results Acknowledgement: results given to Dolly Penaloza LPN, from Dr. Mcpherson's office, at 1:50 PM 07/02/2024. Therese Schuster, 07/02/2024 1:53 PM Electronically signed by: Krista Salomon MD 07/04/2024 08:04 AM [facility] Addendum Dictated By: Krista Salomon MD Addendum Signed By: <Electronically signed by Krista Salomon MD in OV> 07/04/24 0804 Addendum Cosigned By: DD/ /08/1524 TD/TT: 04/25/2406/08/1529 EXAMINATION: US THYROID CLINICAL INFORMATION: History of thyroid nodules. COMPARISON: None available. TECHNIQUE: Linear transducer grayscale and color Doppler examination with attention to the region of the thyroid. FINDINGS: SIZE: Measurements of the thyroid lobes and nodules are given in sagittal, anteroposterior and transverse dimensions respectively. Right Thyroid Lobe: 5.3 x 2.2 x 2.1 cm, volume 13.0 mL. Parenchyma: The gland echotexture is homogeneous. Thyroid vascularity is normal. Left Thyroid Lobe: 3.6 x 1.6 x 1.4 cm, volume 4.3 mL. Parenchyma: The gland echotexture is homogeneous. Thyroid vascularity is normal. Isthmus: 0.3 cm in maximum AP dimension. Estimated total number of nodules greater than or equal to 1 cm: 1. Distribution Operations Manager nodules are described as follows: 1. Location: Right mid. Size: 4.3 x 2.9 x 1.6 cm, volume 4.4 mL. Nodule characteristics: Composition: Solid/almost completely solid (2). Echogenicity: Hyperechoic (1). Shape: Not taller than wide (0). Margins: Ill-defined (0). Echogenic Foci: None (0). ACR TI-RADS total points: 3 ACR TI-RADS category: 3 NODES: No lymphadenopathy is seen in the tissue surrounding the thyroid gland. US/US thyroid IMPRESSION: A 2.9 cm right midpole TR 3 thyroid nodule meets criteria for biopsy. Fine-needle aspiration recommended. This study was presented to me on July 02, 2024 for interpretation. PSA staff will provide results to referring provider at this time. Assessment/Plan Diagnoses and all orders for this visit: Thyroid nodule Comments: I recommended evaluation with blood work listed below. I will refer her again for ultrasound guidedFNA biopsy of the thyroid nodule. Further recommendation based on the results. She is encouraged tocall if she does not have appointment for the biopsy next week. Orders: - TSH W/Reflex to FT4; Future - CBC auto differential; Future - US Guided Thyroid Biopsy; Future - Basic Metabolic Panel; Future documented in this encounter Plan of Treatment Upcoming Encounters Date Type Department Care Team (Late st Contact Info) Description 02/04/2025 3:15 PM EDT Office Visit [facility] [address] [place] [phone] Name, MD Arden [address] [place] [phone] Scheduled Orders Name Type Priority Associated Diagnoses Orde r Schedule TSH W/Reflex to FT4 Lab Routine Thyroid nodule Expected: 10/17/2024 (Approximate), Expires: 10/17/2025 CBC auto differential Lab Routine Thyroid nodule Expected: 10/17/2024 (Approximate), Expires: 10/17/2025 US Guided Thyroid Biopsy Imaging Routine Thyroid nodule Expected: 10/17/2024, Expires: 10/17/2025 Basic Metabolic Panel Lab Routine Thyroid nodule Expected: 10/17/2024 (Approximate), Expires: 10/17/2025 documented as of this encounter Visit Diagnoses Diagnosis Thyroid nodule- Primary Nontoxic uninodular goiter documented in this encounter Additional Health Concerns Assessment Noted Time PHQ-9 Depression Total Score: 0 04/10/20 24 11:26 AM EDT documented as of this encounter Care Teams Software Technical Lead Relationship Specialty Start Date End Date Name, MD Arden [address] [place] [address] PCP - General Internal Medicine 04/10/24 documented as of this encounter
--- OUTSIDE RECORDS SUMMARY | 2024-10-20 08:42 | XMS_ITS | Clinical Summary ---
Author Organization [employer] Address [address] [address] 7t [place] [address] Care Team Providers Care Acid Dipper Name Role Phone Name, Arden WALDROP Primary Care Provider [phone] Allergies No known active allergies Medications ketotifen (Zaditor) 0.025 % ophthalmic solution Administer 1 drop into both eyes 2 times daily. 5 mL 4 Active Multiple Vitamin (Multivitamin Adult) tablet Take 1 tab orally daily 90 tablet 3 4 Active senna-docusate sodium (Senokot-S) 8.6-50 MG tablet Take 1 tablet by mouth Once per day. 30 tablet 11 4 01/16/20 25 Active cholecalciferol (Vitamin D-3) 25 MCG (1000 UT) capsule Take 1,000 Units by mouth Once per day. Active Active Problems Problem Noted Date Diagnosed [...] History of tubal ligation 11/01/2016 Overview (04/10/2024): 2010 Hypothyroidism 04/27/2016 Vitamin D insufficiency 11/19/2015 Elevated LDL cholesterol level 11/19/2015 Depression 11/19/2015 Encounters Date Type Department Care Team Description 10/17/2024 3:15 PM EDT Office Visit [facility] [address] [place] [address] Arden Mcpherson MD Thyroid nodule (Primary Dx) 10/17/2024 Travel 09/22/2024 Orders Only GENERIC EXTERNAL DATA DEPARTMENT Provider, Generic External Data 08/08/2024 Patient Outreach [facility] [address] [place] [address] Arden Mcpherson MD SDOH Concerns (C3CM/CHW Glenda Garrett, TC #3 SDOH f/u_closed ) 07/29/2024 Telephone [facility] [address] [place] [address] Radha Viramontes [place] chart prep from Last 3 Months Immunizations Name Administration [...] PM ED T Respiratory Rate 14 10/17/2024 2:54 PM EDT Oxygen Saturation 98% 10/17/2024 2:54 PM EDT Inhaled Oxygen Concentration - - Weight 67.9 kg (149 lb 12.8 oz) 10/17/2024 2:54 PM EDT Height 152.4 cm (5') 10/17/2024 2:54 PM EDT Body Mass Index 29.26 10/17/2024 2:54 PM EDT Plan of Treatment Upcoming Encounters Date Type Department Care Team (Late st Contact Info) Description 02/04/2025 3:15 PM EDT Office Visit [facility] [address] [place] [address] Name, MD Arden [address] [place] [address] Health Maintenance Due Date Last Done Comments CT Colonography 1980 Colonoscopy 1978 Colorectal Cancer Screening 1978 FIT DNA/Cologuard 1978 FIT 1980 FOBT 1980 HIV Screening 1980 Sigmoidoscopy 1978 Alcohol/Substance Use Screening 1990 Family Planning (PISQ) 1993 Hepatitis C Screening 1996 Hepatitis B Vaccines (1 of 3 - 19+ 3-dose series) 1997 COVID-19 Vaccine (1 - 2023-2 5 season) 2024 Influenza Vaccine (#1) 2024 04/27/2016 Depression Screening 04/10/2025 04/10/2024, 04/10/2024 SDOH Screening 04/14/2025 04/14/2024 Tobacco Screening 10/17/2025 10/17/2024 DTaP/Tdap/Td Vaccines (3 - T d or [...] Procedure Name Priority Date/Time Associated Diagnosis Comments VITAMIN D 25-OH (D2 AND D3) Routine 09/22/2024 10:31 AM EDT TISSUE TRANSGLUTAMINASE AB, IGA Routine 09/22/2024 10:31 AM EDT VITAMIN B12/FOLATE, SERUM PANEL Routine 09/22/2024 10:31 AM EDT LIPASE Routine 09/22/2024 10:31 AM EDT HEPATIC FUNCTION PANEL Routine 10:31 AM EDT PAP SMEAR Routine 05/26/2024 4:43 PM EST Cervical cancer screening BI MAMMOGRAM SCREENING TOMOSYNTHESIS BILATERAL Routine 05/02/2024 3:25 PM EDT Encounter for screening mammogram for malignant neoplasm of breast LIPID PANEL, STANDARD Routine 04/11/2024 8:07 AM EDT Elevated LDL cholesterol level from Last 3 Months or Most Recently Relevant to Health Maintenance Results * (ABNORMAL) VITAMIN D 25-OH (D2 AND D3) (09/22/2024 10:31 AM EDT) Vitamin D, 25-OH, D2 <4 ng/mL [facility] Comment:This test was develo ped and its analytical performancecharacteristics have been determined by [employer] [place], [place]. It hasnot been cleared or approved by the U.S. Food and DrugAdministration. This assay has been validated pursuantto the CLIA regulations and is used for clinicalpurposes.THIS TEST WAS PERFORMED AT:[employer] [id number] [place] [id number] VAUGHAN MD,PHD Vitamin D, 25-OH, D3 14 ng/mL [facility] Comment:This test was develo ped and its analytical performancecharacteristics have been determined by [employer] [place], [place]. It hasnot been cleared or approved by the U.S. Food and DrugAdministration. This assay has been validated pursuantto the CLIA regulations and is used for clinicalpurposes. Vitamin D, 25-OH, Total 14(A) 30 - 100 ng/mL [facility] Comment:Vitamin D, 25-Hydrox y reports concentrations of twocommon forms, 25-OHD2 and 25-OHD3. 25-OHD3 indicatesboth endogenous production and supplementation.25-OHD2 is an indicator of exogenous sources such asdiet or supplementation. Therapy is based onmeasurement of Total 25-OHD, with levels <20 ng/mLindicative of Vitamin D deficiency, while levelsbetween 20 ng/mL and 30 ng/mL suggest insufficiency.Optimal levels are > or = 30 ng/mL.For additional information, please refer tohttp://education.[employer]/faq/JEA542(This link is being provided for informational/educational purposes only.) 09/22/2024 10:3 1 AM EDT 09/22/2024 11:09 AM EDT us Generic External Data Provider LAB BLOOD ORDERAB LES Final Result Performing Organization Address City/State/[facility] Co de Phone Number [facility] [address] [place] [phone] * Vitamin B12 (Cobalamin) and Folate Panel, Serum (09/22/2024 10:31 AM EDT) Vitamin B12 488 200 - 900 pg/mL [facility] Comment:NORMAL 200-900 PG/ML INDETERMINATE 160-199 PG/ML DEFICIENT < 160 PG/ML Folate 14.4 > or = 4.0 ng/mL [facility] Comment:Reference Values:> o r = 4.0 ng/mL< 4.0 ng/mL suggests folate deficiency Methotrexate, aminopterin and folinic acid(leucovorin) are chemotherapeutic agents whose molecularstructures are similar to folate; therefore, the Architectfolate assay cannot be used for patients using these drugs. 09/22/2024 10:3 1 AM EDT 09/22/2024 11:22 AM EDT us Generic External Data Provider LAB BLOOD ORDERAB LES Final Result [facility] [address] [place] [phone] * Tissue Transglutaminase Antibody, IgA (09/22/2024 10:31 AM EDT) Pathologist [facility] Transglutaminase IgA <1.0 U/mL [facility] Comment:Value Interpretation ----- <15.0 Antibody not detected> or = 15.0 Antibody detectedTHIS TEST WAS PERFORMED AT:[employer] [place] [id number] CANALES MD 09/22/2024 10:3 1 AM EDT 09/22/2024 11:09 AM EDT Generic External Data Provider LAB BLOOD ORDERAB LES Final Result Performing Organization Address [facility] Phone Number [facility] [address] [place] [phone] * Lipase (09/22/2024 10:31 AM EDT) [facility] Lipase 21 8 - 78 U/L [facility] 09/22/2024 10:3 1 AM EDT 09/22/2024 11:22 AM EDT Generic External Data Provider LAB BLOOD ORDERAB LES Final Result Performing Organization Address [facility] Phone Number [facility] [address] [place] [phone] * Hepatic Function Panel (09/22/2024 10:31 AM EDT) [facility] Bilirubin, Total 0.5 0.0 - 1.0 mg/dL [facility] Bilirubin, Direct 0.2 0.0 - 0.5 mg/dL [facility] Aspartate Amino Transferase 21 5 - 31 U/L [facility] Alanine Aminotransferase 17 0 - 31 U/L [facility] Total Protein 7.5 6.5 - 8.0 g/dL [facility] Albumin Level 4.3 3.5 - 5.0 g/dL [facility] Alkaline Phosphatase 56 39 - 117 U/L [facility] 09/22/2024 10:3 1 AM EDT 09/22/2024 11:22 AM EDT us Generic External Data Provider LAB BLOOD ORDERAB LES Final Result [facility] [address] [place] [phone] [phone] * Pap Smear (05/26/2024 4:43 PM EST) Swab 05/26/2024 4:43 PM EST 05/27/2024 9:00 AM EST Narrative [facility] - 05/29/2024 8:49 AM EST ----- ------- Name: Felisa Barraza ? Age/Sex: 44/F ? : 1980 Unit#: [id number] ?? Attend Dr: ?Re05/26/24 ?Status: PRE REF ? Location: HO.LNP ?Disch: ? ----- ------- SPEC : [id number] ?RECD: 05/27/24 ? STATUS: ??SOUT ? REQ NUM: [id number] ? MARIAN: 05/26/24 ? SUBM DR: Cheyanne Spann PEDIATRIC NEPHROLOGIST ? ENTERED: ??05/27/24 ?SP TYPE: Pap Smr [...] ------- Signed (signature on file) CHICO Bob ([facility]) 05/29/24 0849 ? ----- ------- ? END OF REPORT ? us Cheyanne Spann NP LAB CYTOLOGY ORDERABLES Final Re sult [facility] [address] [place] [phone] * BI Mammogram Screening Tomosynthesis Bilateral (05/02/2024 3:25 PM EDT) Anatomical Region Laterality Modality Breast Bilateral Mammography 05/02/2024 3:25 PM EDT Narrative 05/14/2024 4:06 PM EDT ? [facility] ? [address] [facility] ?[place] [address] ? Mammography Report ? Signed ? Patient: Madi,Felisa ?MR#: [id number] ?? [id number] ? : 1980 ?Acct:[id number] ? Age/Sex: 44 / F ?ADM Date: 10/18/24 ? Loc: HO.MAMMO ? Attending Dr: Arden Mcpherson MD ? Ordering Physician: Arden Mcpherson MD ?Results: 1Negative ? Date of Service: 05/02/24 ?Follow Up: 1 Year From Orig ?? inal Mammogram ? Procedure(s): MM tomosynthesis screening BI ?? Accession Number(s): [id number] ? cc: Ky,Arden WALDROP ? EXAMINATION: ?? [...] DD/ 1525 ? TD/TT: 05/02/24 1530 ? Wildland Firefighter: ? Procedure Note Donotmarinainterpreter, Image - 05/14/2024 [facility] [address] [place] [address] Mammography Report Signed Patient: Felisa BarrazaMR#: [id number] : 1980Acct:[id number] Age/Sex: 44 / FADM Date: 05/02/24 Loc: HO.MAMMO Attending Dr: Arden Mcpherson MD Ordering Physician: Arden Mcpherson MDResults: 1Negative Date of Service: 05/02/24Follow Up: 1 Year From Orig inal Mammogram Procedure(s): MM tomosynthesis screening BI Accession Number(s): [id number] cc: Arden Mcpherson MD EXAMINATION: MM SCREENING [...] 05/14/24 1603 DD/ 1525 TD/TT: 05/02/24 1530 Wildland Firefighter: us Arden Mcpherson MD IMG BI PROCEDURES Final Result * Lipid Panel, Standard (04/11/2024 8:07 AM EDT) Triglycerides 74 <150 mg/dL [facility] Comment:Desirable Triglyceri de: less than 150 mg/dLBorderline High Triglyceride 150-199 mg/dLHigh Triglyceride: 200-499 mg/dLVery High Triglyceride: greater than or equal to 5OO mg/dL Cholesterol 175 <200 mg/dL [facility] Comment:Desirable Cholestero l: less than 200 mg/dLBorderline High Cholesterol: 200-239 mg/dLHigh Cholesterol: greater than 239 mg/dL LDL Cholesterol Calculated 94 <100 mg/dL [facility] Comment:Desirable LDL: less than 100 mg/dLNear Optimal/Above Optimal LDL: 110- 129 mg/dLBorderline High LDL: 130-159 mg/dLHigh LDL: 160-189 mg/dLVery High LDL: greater than or equal to 190 mg/dL HDL Cholesterol 67 >40 mg/dL [facility] Comment:Desirable HDL: great er than 40 mg/dL Note: This HDL assay may give artificially low results in patients with liver disease. Blood Venous blood specimen / Unknown 04/11/2024 8:07 AM EDT 04/11/2024 11:38 AM EDT us Arden Mcpherson MD LAB BLOOD ORDERABLES Final Resul t [facility] [address] [place] [address] [phone] from Last 3 Months or Most Recently Relevant to Health Maintenance Insurance [facility] C[address] [facility] [address] [facility] Care Teams Acid Dipper Relationship Specialty Start Date End Date Name, MD Arden [address] [place] [address] PCP - General Internal Medicine 04/10/24
--- OUTSIDE RECORDS SUMMARY | 2024-10-20 08:42 | XMS_ITS | Encounter Summary ---
Author Organization [employer] Address [address] [place] [address] Care Team Providers Care Roller Stitcher Name Role Phone Name, Arden WALDROP Primary Care Provider [phone] Encounter Details Date Type Department Care Team (Latest Contact Info) Description 10/17/2024 Travel Social History Tobacco Use Types Packs/Day Years Used Date Smoking Tobacco: Never Smokeless Tobacco: Never Alcohol Use Standard Drinks/Week Comments Never 0 [...] AM EDT documented as of this encounter Plan of Treatment Upcoming Encounters Date Type Department Care Team (Late st Contact Info) Description 02/04/2025 3:15 PM EDT Office Visit [facility] [address] [place] [address] NameArden MD [address] [place] [address] documented as of this encounter Visit Diagnoses Not on filedocumented in this encounter Additional Health Concerns Assessment Noted Time PHQ-9 Depression Total Score: 0 04/10/20 24 11:26 AM EDT documented as of this encounter Care Teams Roller Stitcher Relationship Specialty Start Date End Date NameArden MD [address] [place] [phone] PCP - General Internal Medicine 04/10/24 documented as of this encounter
[2024-10-20 11:12] LABS: MANUAL DIFF FLAG NO
[2024-10-20 11:24] LABS: Basophils Absolute Auto 0.1 X10*3/uL (0.0-0.2); Basophils Percent Auto 0.9 % (0-2); Eosinophils Absolute Auto 0.1 X10*3/uL (0.0-0.4); Eosinophils Percent Auto 0.9 % (0-4); Hematocrit 36.7 % (37.0-47.0); Hemoglobin 12.3 g/dl (12.0-16.0); Imm Gran Abs Auto 0.02 X10*3/uL (0.00-0.03); Imm Gran Pct Auto 0.3 % (0.0-0.4); Lymphocytes Absolute Auto 1.9 X10*3/uL (1.2-4.9); Mean Corpuscular HGB Conc 33.5 g/dl (31.0-35.0); Mean Corpuscular Hemoglobin 28.9 pg (27.0-33.0); Mean Corpuscular Volume 86.4 fL (80.0-98.0); Mean Platelet Volume 11.8 fL (9.4-12.3); Monocytes Absolute Auto 0.6 X10*3/uL (0.1-1.2); Monocytes Percent Auto 8.6 % (2-11); Neutrophils Absolute Auto 4.1 x10*3/uL (2.0-8.3); Neutrophils Percent Auto 61.3 % (45-73); Platelet Count 226 X10*3/uL (160-400); Red Blood Count 4.25 X10*6/uL (4.20-5.50); Red Cell Distribution Width 12.7 % (11.0-16.0); White Blood Count 6.7 X10*3/uL (4.8-10.8)
[2024-10-20 11:48] LABS: Anion Gap 12 (12-20); Blood Urea Nitrogen 12 mg/dL (9-16); Calcium 9.1 mg/dL (8.4-10.2); Carbon Dioxide 25 mmol/L (22-29); Chloride 107 mmol/L (96-108); Estimated Glomerular Filt Rate > 60; Glucose Random 87 mg/dL (60-115); Potassium 3.6 mmol/L (3.3-5.1); Sodium 140 mmol/L (135-145)
[2024-10-20 12:00] LABS: TSH reflex Free T4 1.75 uIU/mL (0.32-4.0)
== END 2024-10-20 08:19 | disposition home or self-care (01) ==
LOC: HO.HHCL 08:18
PROVIDERS: Visit Provider Internal Medicine Geriatric Medicine
DX: E04.1 Nontoxic single thyroid nodule (principal)
CPT/HCPCS: 36415; 80048; 84443; 85025

== ENCOUNTER 2024-11-10 09:47 | Outpatient (REF) | payer OTHER, SELFPAY ==
--- NOTE | ~2024-11-10 | US_ITS ---
EXAMINATION: Ultrasound-guided right thyroid lower pole nodule fine-needle aspiration. CLINICAL INDICATION: Right lower pole nodule measuring 4.3 cm on previous exam. COMPARISON: Ultrasound thyroid 04/25/2024. TECHNIQUE: Following explaining ultrasound-guided fine-needle aspiration biopsy of right thyroid lobe lower pole nodule procedure, benefits and risk, a written consent was obtained from the patient. Patient was placed supine on ultrasound table and preliminary ultrasound imaging the right neck was obtained. An optimal site was selected along the midline right lower neck area. The skin was marked, cleaned and draped in usual sterile manner. 1% lidocaine was inserted puncture site. Under sterile ultrasound guidance a 25-gauge needle attached to a syringe was advanced into the lower pole nodule and a fine-needle aspiration was obtained x3. Samples are collected was sent in Afirma and CytoLyt tubes for further imaging. Postprocedure complete hemostasis achieved. Repeat ultrasound reveals no bleed or hematoma. Simple Band-Aid applied at the puncture site. Patient tolerated procedure extremely well. FINDINGS: Preliminary ultrasound imaging there is a heterogeneous nodule lower pole right lobe measuring 2.3 x 1.61 cm with slight increased vascularity along the anterior half of the nodule 3 pass fine-needle aspiration biopsy of this nodule was performed and sent in CytoLyt and Afirma solutions. US/US biopsy thyroid IMPRESSION: Successful fine-needle aspiration biopsy of right thyroid lobe lower pole nodule performed. Electronically signed by: Bubba Meyer MD 11/11/2024 02:08 PM EDT
--- OUTSIDE RECORDS SUMMARY | 2024-11-10 11:04 | XMS_ITS | Encounter Summary ---
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
--- OUTSIDE RECORDS SUMMARY | 2024-11-10 11:05 | XMS_ITS | Clinical Summary ---
Author Organization [employer] Address [address] [place] [address] Care Team Providers Care Roll Scale Worker Name Role Phone Name, Arden WALDROP Primary Care Provider [phone] Allergies No known active allergies Medications ketotifen [...] Description 10/17/2024 3:15 PM EDT Office Visit [facility] [address] [place] [phone] Name, MD Arden Thyroid nodule (Primary Dx) 10/17/2024 Travel 09/22/2024 Orders Only GENERIC EXTERNAL DATA DEPARTMENT Provider, Generic External Data from Last 3 Months Immunizations Name Administration [...] Description 02/04/2025 3:15 PM EDT Office Visit [facility] [address] [place] [phone] Name, MD Arden [address] [place] [address] Health Maintenance Due Date Last Done Comments [...] Procedure Name Priority Date/Time Associated Diagnosis Comments BASIC METABOLIC PANEL Routine 10/20/2024 8:22 AM EDT Thyroid nodule CBC WITH AUTO DIFFERENTIAL Routine 10/20/2024 8:22 AM EDT Thyroid nodule TSH W/REFLEX TO FT4 Routine 10/20/2024 8 :22 AM EDT Thyroid nodule VITAMIN D 25-OH (D2 AND D3) Routine [...] Recently Relevant to Health Maintenance Results * TSH W/Reflex to FT4 (10/20/2024 8:22 AM EDT) TSH reflex Free T4 1.75 0.32 - 4.0 uIU/mL [facility] Blood Venous blood specimen / Unknown 10/20/2024 8:22 AM EDT 10/20/2024 11:07 AM EDT us Arden Mcpherson MD LAB BLOOD ORDERABLES Final Resul t [facility] [address] [place] [phone] * (ABNORMAL) CBC auto differential (10/20/2024 8:22 AM EDT) White Blood Count 6.7 4.8 - 10.8 X10*3/uL [facility] Red Blood Count 4.25 4.20 - 5.50 X10*6/uL [facility] Hemoglobin 12.3 12.0 - 16.0 g/dl [facility] Hematocrit 36.7(L) 37.0 - 47.0 % [facility] Mean Corpuscular Volume 86.4 80.0 - 98.0 fL [facility] Mean Corpuscular Hemoglobin 28.9 27.0 - 33.0 pg [facility] Mean Corpuscular HGB Conc 33.5 31.0 - 35.0 g/dl [facility] Red Cell Distribution Width 12.7 11.0 - 16.0 % [facility] Platelet Count 226 160 - 400 X10*3/uL [facility] Mean Platelet Volume 11.8 9.4 - 12.3 fL [facility] Neutrophils Percent Auto 61.3 45 - 73 % [facility] Imm Gran Pct Auto 0.3 0.0 - 0.4 % [facility] Lymphocytes Percent Auto 28.0 20 - 40 % [facility] Monocytes Percent Auto 8.6 2 - 11 % [facility] Eosinophils Percent Auto 0.9 0 - 4 % [facility] Basophils Percent Auto 0.9 0 - 2 % [facility] NRBC Pct Auto 0.0 0.0 - 0.2 /100WBC [facility] Neutrophils Absolute Auto 4.1 2.0 - 8.3 x10*3/uL [facility] Imm Gran Abs Auto 0.02 0.00 - 0.03 X10*3/uL [facility] Lymphocytes Absolute Auto 1.9 1.2 - 4.9 X10*3/uL [facility] Monocytes Absolute Auto 0.6 0.1 - 1.2 X10*3/uL [facility] Eosinophils Absolute Auto 0.1 0.0 - 0.4 X10*3/uL [facility] Basophils Absolute Auto 0.1 0.0 - 0.2 X10*3/uL [facility] NRBC Abs Auto 0.000 0.0 - 0.012 X10*3/uL [facility] Blood Venous blood specimen / Unknown 10/20/2024 8:22 AM EDT 10/20/2024 11:07 AM EDT us Arden Mcpherson MD LAB BLOOD ORDERABLES Final Resul t Performing Organization Address [facility] de Phone Number [facility] [address] [place] [phone] * Basic Metabolic Panel (10/20/2024 8:22 AM EDT) Sodium 140 135 - 145 mmol/L [facility] Potassium 3.6 3.3 - 5.1 mmol/L [facility] Chloride 107 96 - 108 mmol/L [facility] Carbon Dioxide 25 22 - 29 mmol/L [facility] Anion Gap 12 12 - 20 [facility] Urea Nitrogen (BUN) 12 9 - 16 mg/dL [facility] Creatinine, Serum 0.67 0.5 - 1.4 mg/dL [facility] Estimated Glomerular Filt Rate >60 [facility] Comment:Chronic Kidney Disea se: Estimated GFR < 60 mL/min/1.56s9Sshxym Kidney Disease: Estimated GFR < 15 mL/min/1.73m2 Glucose 87 60 - 115 mg/dL [facility] Calcium 9.1 8.4 - 10.2 mg/dL [facility] Blood Venous blood specimen / Unknown 10/20/2024 8:22 AM EDT 10/20/2024 11:07 AM EDT us Arden Mcpherson MD LAB BLOOD ORDERABLES Final Resul t Performing Organization Address [facility] Co de Phone Number [facility] [address] [place] [phone] * (ABNORMAL) VITAMIN D 25-OH (D2 AND D3) (09/22/2024 10:31 AM EDT) Vitamin D, 25-OH, D2 <4 ng/mL [facility] Comment:This test was develo ped and its analytical performancecharacteristics have been determined by [employer] [place], [place]. It hasnot been cleared or approved by the U.S. Food and DrugAdministration. This assay has been validated pursuantto the CLIA regulations and is used for clinicalpurposes.THIS TEST WAS PERFORMED AT:[facility] [place] [address]FLQGTKQNAYLA VAUGHAN MD,PHD Vitamin D, 25-OH, D3 14 ng/mL [facility] Comment:This test was develo ped and its analytical performancecharacteristics have been determined by [employer] [place], [place]. It hasnot been cleared or approved by the U.S. Food and DrugAdministration. This assay has been validated pursuantto the CLIA regulations and is used for clinicalpurposes. Vitamin D, 25-OH, Total 14(A) 30 - 100 ng/mL [facility] Comment:Vitamin D, 25-Hydrox y reports concentrations [...] = 30 ng/mL.For additional information, please refer tohttp://education.Novel [employer]TV/faq/FME107(This link is being provided for informational/educational purposes only.) 09/22/2024 10:3 1 AM EDT 09/22/2024 11:09 AM EDT us Generic External Data Provider LAB BLOOD ORDERAB LES Final Result [facility] [address] [place] [phone] [phone] * Vitamin B12 (Cobalamin) and Folate Panel, Serum (09/22/2024 10:31 AM EDT) Vitamin B12 488 200 - 900 pg/mL [facility] Comment:NORMAL 200-900 PG/ML INDETERMINATE 160-199 PG/ML DEFICIENT < 160 PG/ML Folate 14.4 > or = 4.0 ng/mL [facility] Comment:Reference Values:> o r = 4.0 ng/mL< 4.0 ng/mL suggests folate deficiency Methotrexate, aminopterin and folinic acid(leucovorin) are chemotherapeutic agents whose molecularstructures are similar to folate; therefore, the Architectfolate assay cannot be used for patients using these drugs. 09/22/2024 10:3 1 AM EDT 09/22/2024 11:22 AM EDT Generic External Data Provider LAB BLOOD ORDERAB LES Final Result Performing Organization Address [facility] de Phone Number [facility] [address] [place] [phone] * Tissue Transglutaminase Antibody, IgA (09/22/2024 10:31 AM EDT) Transglutaminase IgA <1.0 U/mL [facility] Comment:Value Interpretation ----- <15.0 Antibody not detected> or = 15.0 Antibody detectedTHIS TEST WAS PERFORMED AT:[employer] [address] [address]IXQNAANTOINE CANALES MD 09/22/2024 10:3 1 AM EDT 09/22/2024 11:09 AM EDT Generic External Data Provider LAB BLOOD ORDERAB LES Final Result Performing Organization Address [facility] Co de Phone Number [facility] [address] [place] [phone] * Lipase (09/22/2024 10:31 AM EDT) Lipase 21 8 - 78 U/L [facility] 09/22/2024 10:3 1 AM EDT 09/22/2024 11:22 AM EDT Generic External Data Provider LAB BLOOD ORDERAB LES Final Result Performing Organization Address [facility] de Phone Number [facility] [address] [place] [phone] * Hepatic Function Panel (09/22/2024 10:31 AM EDT) Bilirubin, Total 0.5 0.0 - 1.0 mg/dL [facility] Bilirubin, Direct 0.2 0.0 - 0.5 mg/dL [facility] Aspartate Amino Transferase 21 5 - 31 U/L [facility] Alanine Aminotransferase 17 0 - 31 U/L [facility] Total Protein 7.5 6.5 - 8.0 g/dL [facility] Albumin Level 4.3 3.5 - 5.0 g/dL [facility] Alkaline Phosphatase 56 39 - 117 U/L [facility] 09/22/2024 10:3 1 AM EDT 09/22/2024 11:22 AM EDT Generic External Data Provider LAB BLOOD ORDERAB LES Final Result Performing Organization Address [facility] de Phone Number [facility] [address] [place] [phone] * Pap Smear (05/26/2024 4:43 PM EST) Swab 05/26/2024 4:43 PM EST 05/27/2024 9:00 AM EST Narrative [facility] - 05/29/2024 8:49 AM EST ----- ------- Name: Felisa Barraza ? Age/Sex: 44/F ? : 1980 Unit#: [id number] ?? Attend Dr: ?Re05/26/24 ?Status: PRE REF ? Location: HO.LNP ?Disch: ? ----- ------- SPEC : [id number] ?RECD: 05/27/24 ? STATUS: ??SOUT ? REQ NUM: [id number] ? MARIAN: 05/26/24-816 ? SUBM DR: Cheyanne Spann ASBESTOS CEMENT SHEET SUPERVISOR ? ENTERED: ??05/27/24-7 ?SP TYPE: Pap Smr ?OTHR DR: ? ORDERED: ??Pap Smear ? Interpretation ?? Satisfactory for evaluation. ?? Negative for intraepithelial lesion or malignancy. ? HPV High Risk: ??Negative ? HPV Genotyping 16: ??Negative ?? HPV Genotyping 18: ??Negative ?Clinical Information LMP: 05/12/2024 Previous PAP test: Unknown date, WNL ? Material Received ?? ThinPrep-Cervical ----- ------- Signed (signature on file) CHICO Bob (ASCP) 05/29/24 0849 ? ----- ------- ? END OF REPORT ? us Cheyanne Spann NP LAB CYTOLOGY ORDERABLES Final Re sult [facility] [address] [place] [phone] * BI Mammogram Screening Tomosynthesis Bilateral (05/02/2024 3:25 PM EDT) Anatomical Region Laterality Modality Breast Bilateral Mammography 05/02/2024 3:25 PM EDT Narrative 05/14/2024 4:06 PM EDT ? [facility] ? [address] ?[place] [address] ? Mammography Report ? Signed ? Patient: Madi,Felisa ?MR#: [id number] ?? [id number] ? : 1980 ?Acct:[id number] ? Age/Sex: 44 / F ?ADM Date: 05/02/24 ? Loc: HO.MAMMO ? Attending Dr: Arden Mcpherson MD ? Ordering Physician: Arden Mcpherson MD ?Results: 1Negative ? Date of Service: 05/02/24 ?Follow Up: 1 Year From Orig ?? inal Mammogram ? Procedure(s): MM tomosynthesis screening BI ?? Accession Number(s): [id number] ? cc: Ky,Arden WALDROP ? EXAMINATION: ?? [...] ??Madonna Akers DO ??05/14/2024 04:03 PM EDT ? Dictated By: ?Madonna Akers DO ? Signed By: ?<Electronically signed by Madonna Akers, DO in OV> ? 05/14/24 1603 ? DD/ 1525 ? TD/TT: 05/02/24 1530 ? Casting Chipper: ? Procedure Note Cuauhtemoc, Image - 05/14/[address] [facility] [address] [place] [address] Mammography Report Signed Patient: Felisa BarrazaMR#: [id number] : 1980Acct:[id number] Age/Sex: 44 / FADM Date: 05/02/24 Loc: HO.MAMMO Attending Dr: Arden Mcpherson MD Ordering Physician: Arden Mcphersonesults: 1Negative Date of Service: 05/02/24Follow Up: 1 Year From Orig inal Mammogram Procedure(s): MM tomosynthesis screening BI Accession Number(s): [id number] cc: Arden Mcpherson MD EXAMINATION: MM SCREENING [...] Madonna Akers DO 05/14/2024 04:03 PM EDT RP Dictated By: Madonna Akers DO Signed By: <Electronically signed by Madonna Akers DO in OV> 05/14/24 1603 DD/ 1525 TD/TT: 05/02/24 1530 Casting Chipper: us Arden Mcpherson MD IMG BI PROCEDURES Final Result * Lipid Panel, Standard (04/11/2024 8:07 AM EDT) Triglycerides 74 <150 mg/dL [facility] Comment:Desirable Triglyceri de: less than 150 mg/dLBorderline High Triglyceride 150-199 mg/dLHigh Triglyceride: 200-499 mg/dLVery High Triglyceride: greater than or equal to 5OO mg/dL Cholesterol 175 <200 mg/dL [facility] Comment:Desirable Cholestero l: less than 200 mg/dLBorderline High Cholesterol: 200-239 mg/dLHigh Cholesterol: greater than 239 mg/dL LDL Cholesterol Calculated 94 <100 mg/dL [facility] Comment:Desirable LDL: less than 100 mg/dLNear Optimal/Above Optimal LDL: 110- 129 mg/dLBorderline High LDL: 130-159 mg/dLHigh LDL: 160-189 mg/dLVery High LDL: greater than or equal to 190 mg/dL HDL Cholesterol 67 >40 mg/dL [facility] Comment:Desirable HDL: great er than 40 mg/dL Note: This HDL assay may give artificially low results in patients with liver disease. Blood Venous blood specimen / Unknown 04/11/2024 8:07 AM EDT 04/11/2024 11:38 AM EDT us Arden Mcpherson MD LAB BLOOD ORDERABLES Final Resul t [facility] [address] [place] [phone] from Last 3 Months or Most Recently Relevant to Health Maintenance Insurance [facility] [employer] [facility] [facility] Care Teams Roll Scale Worker Relationship Specialty Start Date End Date Name, MD Arden [address] [place] [address] PCP - General Internal Medicine 04/10/24
[2024-11-10] MEDS: Lidocaine HCl 1 % MPF 5 ML VIAL SUBCUT (11:54)
== END 2024-11-10 09:48 | disposition home or self-care (01) ==
LOC: HO.US 09:47
PROVIDERS: PCP Internal Medicine Geriatric Medicine; Visit Provider Internal Medicine Geriatric Medicine
DX: E04.1 Nontoxic single thyroid nodule (principal)
CPT/HCPCS: 10005; 88112; J2003

== ENCOUNTER 2024-11-10 11:14 | Emergency (ER) | payer OTHER, SELFPAY ==
--- NOTE | ~2024-11-10 | CT_ITS ---
CLINICAL HISTORY: S p thyroid nodule biopsy, SOB, throat pain CT soft tissue neck with contrast Comparison: None Findings: There are small tonsilliths in the left palatine tonsil which measure up to 3 mm. Otherwise normal pharyngeal mucosa, oral cavity and larynx. No suspicious lymph nodes. Normal parotid and submandibular glands. Heterogeneous thyroid with enlargement of the right lobe of the thyroid. No CT evidence of recent biopsy; no soft tissue gas or hematoma. Normal vessels and carotid space. No acute fracture. The lung apices are clear. Impression: No acute findings. No evidence of recent thyroid biopsy or complication. This document has been electronically signed by: La Light MD on 11/10/2024 17:58:04
[2024-11-10 11:24] VITALS: BP 117/71; PULSE 69; RESP 14; TEMP 36.7; O2SAT 100; BMI 29.1
--- NOTE | 2024-11-10 14:01 | ED.GENADULT ---
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 Haskins HPI narrative: 44-year-old female s/p right thyroid nodule biopsy at IR, after patient finished the procedure shortly after she started to have shortness of breath, generalized numbness, hyperventilation and breathing fast, felt nauseated, had 1 time vomiting almost with passing out. Rapid response was called and patient was transferred to the ED for further evaluation. In the ED patient is stable, reporting symptoms subsiding. Related Data Previous Rx's ?Medication ?Instructions ?Recorded sennosides 8.6 mg tablet (Natural 17.2 mg (2 x 8.6 mg) PO BEDTIME 09/15/24 Senna Laxative) constipation #60 tabs cholecalciferol (vitamin D3) 125 125 mcg PO DAILY #90 caps 10/01/24 mcg (5,000 unit) capsule Allergies Allergy/AdvReac Type Severity Reaction Status Date / Time No Known Allergies Allergy Verified 11/10/24 11:27 Review of Systems Review of Systems: All other systems are reviewed and are negative Constitutional: Reports as per HPI and Reports no additional constitutional complaints Eyes: Reports as per HPI and Reports no additional eye complaints Reports system reviewed and no additional complaints, except as documented Cardiovascular: Reports as per HPI and Reports no additional cardiovascular complaints Respiratory: Reports as per HPI and Reports no additional respiratory complaints Gastrointestinal: Reports as per HPI and Reports no additional gastrointestinal complaints Genitourinary: Reports no additional female genitourinary complaints Musculoskeletal: Reports no additional musculoskeletal complaints Skin/Breast: Reports system reviewed and no additional complaints, except as docu Psychiatric: Reports no additional psychiatric complaints Endocrine: Reports no additional endocrine complaints Hematologic/Lymphatic: Reports no additional hematologic/lymphatic complaints Allergic/Immunologic: Reports no additional allergic/immunologic complaints Reports system reviewed and no additional complaints, except as documented and Reports Abnormal speech present [facility] Past Medical History Medical History Constipation Family History Family History Maternal Uncle Colon cancer Social History Social History Alcohol intake: never Patient Tobacco Use Status: Never used Tobacco Advance Directives: No Advance Directives Information Provided: Yes Physical Exam ED Vital Signs: Vital Signs - 24 hr 11/10/24 11:24 11/10/24 15:19 Temperature 98.0 F Pulse Rate 69 99 Respiratory Rate 14 13 Blood Pressure 117/71 119/74 Pulse Oximetry 100 98 Oxygen Delivery Method Room Air Room Air BMI result Body Mass Index 29.1 Vital signs have been reviewed and appear to be correct. Blood pressure elevated. Heart rate normal. Respiratory rate normal. Temperature normal. Oxygen saturation normal. Appearance: Alert. Oriented X3. No acute distress. Head: Normal external exam. Normocephalic. Atraumatic. No Perez signs noted. No raccoon eyes noted Eyes: PERRLA. EOMI. Conjunctiva and sclera normal. Eyelids normal. ENT: TM's Normal. Pharynx normal. Uvula midline. Moist mucous membranes. No trismus noted. No drooling noted. No muffled voice noted. Neck: Normal inspection. Neck supple. FROM. No adenopathy. Thyroid Normal. No meningeal signs. No neck mass noted. CVS: Normal heart rate and rhythm. Heart sound normal. No murmurs noted. Pulses normal throughout. Respiratory: No respiratory distress. Painless inspiration. Breath sounds normal. No wheezes/rales/rhonchi noted. Chest nontender. No accessory muscle usage noted or decreased air movement noted. Abdomen: Soft and nontender. Bowel sounds normal in all 4 quadrants. No distention noted. No organomegaly noted. No visible injury noted. Back: No CVA tenderness. Full range of motion noted. Skin: Skin warm and dry. Normal skin color. Normal skin turgor. No rashes/lesions/lacerations noted. Extremities: No lower extremity edema. Extremities exhibit normal range of motion. Extremities nontender. Neuro: Oriented X 3. Cranial nerve exam: II-XII are grossly intact No motor deficit. No sensory deficit. Reflexes normal. Course Reevaluation(s) Reevaluation #1: Feels better, negative blood workup and CT soft tissue of the neck with no complication from after procedure. Likely patient had vasovagal response. Will discharge. Time: 18:08 Medications Administered Discontinued Medications Generic Name Dose Route Start Last Admin Trade Name Polly PRN Reason Stop Dose Admin Iohexol 60 ml 11/10/24 16:56 11/10/24 16:57 Iohexol 350 Mg/Ml 100 Ml Infus..Btl IV 11/10/24 16:57 60 ml ONCE ONE Administration Medical Decision Making Differential Diagnosis Differential Diagnoses: The differential diagnosis associated with the presentation includes (Vasovagal response, hypoglycemia, anxiety, severe anemia, electrolyte derangement.) Admission/Observation Consideration of admission/observation: Escalation of care including admission/observation considered Lab Data [facility] Lab Attestation statement: I reviewed the patient's lab results. 11/10/24 14:13 11/10/24 16:07 Labs: Lab Results 11/10/24 11/10/24 Range/Units 14:13 16:07 WBC 12.2 H (4.8-10.8) X10*3/uL RBC 4.64 (4.20-5.50) X10*6/uL Hgb 13.6 (12.0-16.0) g/dl Hct 40.4 (37.0-47.0) % MCV 87.1 (80.0-98.0) fL MCH 29.3 (27.0-33.0) pg MCHC 33.7 (31.0-35.0) g/dl RDW 12.5 (11.0-16.0) % Plt Count 268 (160-400) X10*3/uL MPV 11.0 (9.4-12.3) fL Immature Gran % (Auto) 0.2 (0.0-0.4) % Neut % (Auto) 84.3 H (45-73) % Lymph % (Auto) 10.6 L (20-40) % [place] % (Auto) 4.2 (2-11) % Eos % (Auto) 0.2 (0-4) % Baso % (Auto) 0.5 (0-2) % Lymph # (Auto) 1.3 (1.2-4.9) X10*3/uL [place] # (Auto) 0.5 (0.1-1.2) X10*3/uL Eos # (Auto) 0.0 (0.0-0.4) X10*3/uL Baso # (Auto) 0.1 (0.0-0.2) X10*3/uL Abs Immat Gran (auto) 0.03 (0.00-0.03) X10*3/uL Absolute Neuts (auto) 10.2 H (2.0-8.3) x10*3/uL Absolute Nucleated RBC 0.000 (0.0-0.012) X10*3/uL Nucleated RBC % (auto) 0.0 (0.0-0.2) /100WBC Sodium 141 (135-145) mmol/L Potassium 4.0 (3.3-5.1) mmol/L Chloride 105 (96-108) mmol/L Carbon Dioxide 25 (22-29) mmol/L Anion Gap 15 (12-20) BUN 10 (9-16) mg/dL Creatinine 0.74 (0.5-1.4) mg/dL Estim Creat Clear Calc 81.4 Estimated GFR > 60 Random Glucose 136 H (60-115) mg/dL Calcium 9.5 (8.4-10.2) mg/dL Beta HCG, Quant < 2 mIU/mL Independent Interpretation I performed an independent interpretation of an: CT Scan (Soft tissue neck: No acute pathology.) Radiology Impression Discussion of test interpretation with radiology: I have reviewed the radiologist's reading. Discharge Plan Discharge Clinical Impression: Vasovagal episode Patient Disposition: Home, Self-Care Instructions: Near Syncope (ED) Prescriptions: No Action cholecalciferol (vitamin D3) 125 mcg (5,000 unit) capsule 125 mcg PO DAILY Qty: 90 3RF sennosides [Natural Senna Laxative] 8.6 mg tablet 17.2 mg PO BEDTIME Qty: 60 3RF Referrals: Ellyn Ruiz MD [Primary Care Provider] - Print Language: Kiswahili
--- OUTSIDE RECORDS SUMMARY | 2024-11-10 14:16 | XMS_ITS | Encounter Summary ---
Author Organization [employer] Address [address] [facility] [address] [place] [address] Care Team Providers Care Cement Rubber Name Role Phone Name, Arden WALDROP Primary Care Provider [phone] Encounter Details Date Type Department Care Team ([facility] st Contact Info) Description 11/10/2024 Population Health Risk Score [facility] (C3) Department [address] [facility] [address] [place] [phone] Provider, Population Health Generic Social History Tobacco Use Types Packs/Day Years [...] Description 02/04/2025 3:15 PM EDT Office Visit [facility] MED[facility]INE [address] [place] [phone] NameArden MD [address] [place] [phone] documented as of this encounter Visit Diagnoses Not on filedocumented in this encounter Additional Health Concerns Assessment Noted Time PHQ-9 Depression Total Score: 0 04/10/20 24 11:26 AM EDT documented as of this encounter Care Teams Cement Rubber Relationship Specialty Start Date End Date Name, MD Arden [address] [place] [phone] PCP - General Internal Medicine 04/10/24 documented as of this encounter
--- OUTSIDE RECORDS SUMMARY | 2024-11-10 14:16 | XMS_ITS | Clinical Summary ---
Author Organization [employer] Address [address] [place] [address] Care Team Providers Care Construction Cost Estimator Name Role Phone Name, Arden WALDROP Primary Care Provider [phone] Allergies No known active allergies Medications ketotifen [...] Encounters Date Type Department Care Team Description 11/10/2024 Population Health Risk Score [facility] ([facility] Department [address] [phone] Provider, Population Health Generic 10/17/2024 3:15 PM EDT Office Visit [facility] [address] [place] [address] Name, MD Arden Thyroid nodule (Primary Dx) [...] is your housing situation today? I have jemsabrina martinez 04/03/[address] you [...] Description 02/04/2025 3:15 PM EDT Office Visit [facility] [address] [place] [phone] Name, MD Arden [address] [place] [address] Health Maintenance Due Date Last Done Comments CT Colonography 1978 Colonoscopy 1978 Colorectal Cancer Screening 1978 FIT DNA/Cologuard 1978 FIT 1978 FOBT 1978 HIV Screening 1978 Sigmoidoscopy 1978 Alcohol/Substance Use Screening 1990 Family Planning (PISQ) 1993 Hepatitis C Screening 1996 Hepatitis B Vaccines (1 of 3 - 19+ 3-dose series) 1997 COVID-19 Vaccine (1 - 2024-2 5 season) 2024 Influenza Vaccine (#1) 2024 [...] Free T4 1.75 0.32 - 4.0 uIU/mL [facility] Blood Venous blood specimen / Unknown 10/20/2024 8:22 AM EDT 10/20/2024 11:07 AM EDT us Arden Mcpherson MD LAB BLOOD ORDERABLES Final Resul t [facility] [address] [place] [phone] * (ABNORMAL) CBC auto differential (10/20/2024 8:22 AM EDT) White Blood Count 6.7 4.8 - 10.8 X10*3/uL [facility] Red Blood Count 4.25 4.20 - 5.50 X10*6/uL [facility] Hemoglobin 12.3 12.0 - 16.0 g/dl [facility] Hematocrit 36.7(L) 37.0 - 47.0 % [facility] Mean Corpuscular Volume 86.4 80.0 - 98.0 fL [facility] Mean Corpuscular Hemoglobin 28.9 27.0 - 33.0 pg [facility] Mean Corpuscular HGB Conc 33.5 31.0 - 35.0 g/dl [facility] Red Cell Distribution Width 12.7 11.0 - 16.0 % [facility] Platelet Count 226 160 - 400 X10*3/uL [facility] Mean Platelet Volume 11.8 9.4 - 12.3 fL [facility] Neutrophils Percent Auto 61.3 45 - 73 % [facility] Imm Gran Pct Auto 0.3 0.0 - 0.4 % [facility] Lymphocytes Percent Auto 28.0 20 - 40 % [facility] Monocytes Percent Auto 8.6 2 - 11 % [facility] Eosinophils Percent Auto 0.9 0 - 4 % [facility] Basophils Percent Auto 0.9 0 - 2 % [facility] NRBC Pct Auto 0.0 0.0 - 0.2 /100WBC [facility] Neutrophils Absolute Auto 4.1 2.0 - 8.3 x10*3/uL [facility] Imm Gran Abs Auto 0.02 0.00 - 0.03 X10*3/uL [facility] Lymphocytes Absolute Auto 1.9 1.2 - 4.9 X10*3/uL [facility] Monocytes Absolute Auto 0.6 0.1 - 1.2 X10*3/uL [facility] Eosinophils Absolute Auto 0.1 0.0 - 0.4 X10*3/uL [facility] Basophils Absolute Auto 0.1 0.0 - 0.2 X10*3/uL [facility] NRBC Abs Auto 0.000 0.0 - 0.012 X10*3/uL [facility] Blood Venous blood specimen / Unknown 10/20/2024 8:22 AM EDT 10/20/2024 11:07 AM EDT us Arden Mcpherson MD LAB BLOOD ORDERABLES Final Resul t Performing Organization Address [facility] de Phone Number [facility] [address] [place] [phone] * Basic Metabolic Panel (10/20/2024 8:22 AM EDT) Sodium 140 135 - 145 mmol/L [facility] Potassium 3.6 3.3 - 5.1 mmol/L [facility] Chloride 107 96 - 108 mmol/L [facility] Carbon Dioxide 25 22 - 29 mmol/L [facility] Anion Gap 12 12 - 20 [facility] Urea Nitrogen (BUN) 12 9 - 16 mg/dL [facility] Creatinine, Serum 0.67 0.5 - 1.4 mg/dL [facility] Estimated Glomerular Filt Rate >60 [facility] Comment:Chronic Kidney Disea se: Estimated GFR < 60 mL/min/1.78o6Ctptbn Kidney Disease: Estimated GFR < 15 mL/min/1.73m2 Glucose 87 60 - 115 mg/dL [facility] Calcium 9.1 8.4 - 10.2 mg/dL [facility] Blood Venous blood specimen / Unknown 10/20/2024 8:22 AM EDT 10/20/2024 11:07 AM EDT us Arden Mcpherson MD LAB BLOOD ORDERABLES Final Resul t Performing Organization Address [facility] de Phone Number [facility] [address] [place] [phone] * (ABNORMAL) VITAMIN D 25-OH (D2 AND D3) (09/22/2024 10:31 AM EDT) Vitamin D, 25-OH, D2 <4 ng/mL [facility] Comment:This test was develo ped and its analytical performancecharacteristics have been determined by [employer] [place], [place]. It hasnot been cleared or approved by the U.S. Food and DrugAdministration. This assay has been validated pursuantto the CLIA regulations and is used for clinicalpurposes.THIS TEST WAS PERFORMED AT:[employer] [id number] [place] [address]MISMKJUNAYLA VAUGHAN MD,PHD Vitamin D, 25-OH, D3 14 ng/mL [facility] Comment:This test was develo ped and its analytical performancecharacteristics have been determined by [employer] [place], [place]. It hasnot been cleared or approved by the U.S. Food and DrugAdministration. This assay has been validated pursuantto the CLIA regulations and is used for clinicalpurposes. Vitamin D, 25-OH, Total 14(A) 30 - 100 ng/mL [facility] Comment:Vitamin D, 25-Hydrox y reports concentrations [...] = 30 ng/mL.For additional information, please refer tohttp://education.[employer]/faq/XER715(This link is being provided for informational/educational purposes only.) 09/22/2024 10:3 1 AM EDT 09/22/2024 11:09 AM EDT us Generic External Data Provider LAB BLOOD ORDERAB LES Final Result [facility] [address] [place] [phone] * Vitamin B12 (Cobalamin) and Folate Panel, Serum (09/22/2024 10:31 AM EDT) Vitamin B12 488 200 - 900 pg/mL [facility] Comment:NORMAL 200-900 PG/M L INDETERMINATE 160-199 PG/ML DEFICIENT < 160 PG/ML Folate 14.4 > or = 4.0 ng/mL [facility] Comment:Reference Values:> o r = 4.0 ng/mL< 4.0 ng/mL suggests folate deficiency Methotrexate, aminopterin and folinic acid(leucovorin) are chemotherapeutic agents whose molecularstructures are similar to folate; therefore, the Architectfolate assay cannot be used for patients using these drugs. 09/22/2024 10:3 1 AM EDT 09/22/2024 11:22 AM EDT Generic External Data Provider LAB BLOOD ORDERAB LES Final Result Performing Organization Address [facility] de Phone Number [facility] [address] [place] [address] [phone] * Tissue Transglutaminase Antibody, IgA (09/22/2024 10:31 AM EDT) Pathologist [facility] Transglutaminase IgA <1.0 U/mL [facility] Comment:Value Interpretation ----- <15.0 Antibody not detected> or = 15.0 Antibody detectedTHIS TEST WAS PERFORMED AT:[employer] [address] [address]BIDKPANTOINE CANALES MD 09/22/2024 10:3 1 AM EDT 09/22/2024 11:09 AM EDT Generic External Data Provider LAB BLOOD ORDERAB LES Final Result Performing Organization Address [facility] Co de Phone Number [facility] [address] [place] [phone] * Lipase (09/22/2024 10:31 AM EDT) Pathologist [facility] Lipase 21 8 - 78 U/L [facility] 09/22/2024 10:3 1 AM EDT 09/22/2024 11:22 AM EDT Generic External Data Provider LAB BLOOD ORDERAB LES Final Result Performing Organization Address [facility] Co de Phone Number [facility] [address] [place] [phone] * Hepatic Function Panel (09/22/2024 10:31 AM EDT) Bilirubin, Total 0.5 0.0 - 1.0 mg/dL [facility] Bilirubin, Direct 0.2 0.0 - 0.5 mg/dL [facility] Aspartate Amino Transferase 21 5 - 31 U/L [facility] Alanine Aminotransferase 17 0 - 31 U/L [facility] Total Protein 7.5 6.5 - 8.0 g/dL [facility] Albumin Level 4.3 3.5 - 5.0 g/dL [facility] Alkaline Phosphatase 56 39 - 117 U/L [facility] 09/22/2024 10:3 1 AM EDT 09/22/2024 11:22 AM EDT Generic External Data Provider LAB BLOOD ORDERAB LES Final Result Performing Organization Address [facility] de Phone Number [facility] [address] [place] [phone] * Pap Smear (05/26/2024 4:43 PM EST) Swab 05/26/2024 4:43 PM EST 05/27/2024 9:00 AM EST Narrative [facility] - 05/29/2024 8:49 AM EST ----- ------- Name: Felisa Barraza ? Age/Sex: 44/F ? : 1980 Unit#: [id number] ?? Attend Dr: ?Re05/26/24 ?Status: PRE REF ? Location: HO.LNP ?Disch: ? ----- ------- SPEC : [id number] ?RECD: 05/27/24 ? STATUS: ??SOUT ? REQ NUM: [id number] ? MARIAN: 05/26/24 ? SUBM DR: Cheyanne Spann CLAIMS EXAMINER ? ENTERED: ??05/27/24-1016 ?SP TYPE: Pap Smr ?OTHR DR: ? ORDERED: ??Pap Smear ? Interpretation ?? Satisfactory for evaluation. ?? Negative for intraepithelial lesion or malignancy. ? HPV High Risk: ??Negative ? HPV Genotyping 16: ??Negative ?? HPV Genotyping 18: ??Negative ?Clinical Information LMP: 05/12/2024 Previous PAP test: Unknown date, WNL ? Material Received ?? ThinPrep-Cervical ----- ------- Signed (signature on file) CHICO Bbo (ASCP) 05/29/24 0849 ? ----- ------- ? END OF REPORT ? us Cheyanne Spann NP LAB CYTOLOGY ORDERABLES Final Re sult [facility] [address] [place] [phone] * BI Mammogram Screening Tomosynthesis Bilateral (05/02/2024 3:25 PM EDT) Anatomical Region Laterality Modality Breast Bilateral Mammography 05/02/2024 3:25 PM EDT Narrative 05/14/2024 4:06 PM EDT ? [facility] [place] ? [address] ?[place] [address] ? Mammography Report ? Signed ? Patient: Madi,Felisa ?MR#: [id number] ?? [id number] ? : 1980 ?Acct:[id number] ? Age/Sex: 44 / F ?ADM Date: 05/02/24 ? Loc: HO.MAMMO ? Attending Dr: Arden Mcpherson MD ? Ordering Physician: Name,Arden WALDROP ?Results: 1Negative ? Date of Service: 05/02/24 ?Follow Up: 1 Year From Orig ?? inal Mammogram ? Procedure(s): MM tomosynthesis screening BI ?? Accession Number(s): [id number] ? cc: Name,Arden WALDROP ? EXAMINATION: ?? MM SCREENING DIGITAL [...] DD/ 1525 ? TD/TT: 05/02/24 1530 ? Production Consultant: ? Procedure Note Cuauhetmoc, Image - 05/14/2024 [place] [facility] [address] [place] [address] Mammography Report Signed Patient: Sagrario Barraza#: [id number] : 1980Acct:[id number] Age/Sex: 44 / FADM Date: 05/02/24 Loc: HO.MAMMO Attending Dr: Arden Mcpherson MD Ordering Physician: Arden Mcpherson MDResults: 1Negative Date of Service: 05/02/24Follow Up: 1 Year From Orig inal Mammogram Procedure(s): MM tomosynthesis screening BI Accession Number(s): [id number] cc: Arden Mcpherson MD EXAMINATION: MM SCREENING [...] 05/14/24 1603 DD/ 1525 TD/TT: 05/02/24 1530 Production Consultant: us Arden Name MD RODRIGUEZ BI PROCEDURES Final Result * Lipid Panel, Standard (04/11/2024 8:07 AM EDT) Triglycerides 74 <150 mg/dL [facility] Comment:Desirable Triglyceri de: less than 150 mg/dLBorderline High Triglyceride 150-199 mg/dLHigh Triglyceride: 200-499 mg/dLVery High Triglyceride: greater than or equal to 5OO mg/dL Cholesterol 175 <200 mg/dL [facility] Comment:Desirable Cholestero l: less than 200 mg/dLBorderline High Cholesterol: 200-239 mg/dLHigh Cholesterol: greater than 239 mg/dL LDL Cholesterol Calculated 94 <100 mg/dL [facility] Comment:Desirable LDL: less than 100 mg/dLNear Optimal/Above Optimal LDL: 110- 129 mg/dLBorderline High LDL: 130-159 mg/dLHigh LDL: 160-189 mg/dLVery High LDL: greater than or equal to 190 mg/dL HDL Cholesterol 67 >40 mg/dL [facility] Comment:Desirable HDL: great er than 40 mg/dL Note: This HDL assay may give artificially low results in patients with liver disease. Blood Venous blood specimen / Unknown 04/11/2024 8:07 AM EDT 04/11/2024 11:38 AM EDT us Arden Name LAB BLOOD ORDERABLES Final Resul t [facility] [address] [place] [phone] [phone] from Last 3 Months or Most Recently Relevant to Health Maintenance Insurance [facility] C3 HSN [employer]IAL [facility] Care Teams Construction Cost Estimator Relationship Specialty Start Date End Date Name, MD Arden [address] [place] [phone] PCP - General Internal Medicine 04/10/24
--- OUTSIDE RECORDS SUMMARY | 2024-11-10 14:16 | XMS_ITS | Clinical Summary ---
Author Organization [facility] Address [address] [place] [address] Care Team Providers Care Investor Relations Associate Name Role Phone Lily Lee PA-C Primary [...] 06/28/2022, 03/2 03/2022, 06/29/2021, Additional history exists [id number] ( season) 2024 Imm-Influenza (#1) 2024 04/27/2016 [...] EST) TSH 1.36 0.40 - 4.50 mIU/L [employer] Comment: ?Reference Range ?> or = 20 Years ??0.40-4.50 ? Ranges ?First trimester ?0.26-2.66 ?Second trimester ?? 0.55-2.73 ?Third trimester ?0.43-2.91 Blood Blood / Unknown 06/28/2022 9 :13 AM EST 06/28/2022 9:13 AM EST us Lily Lee PA-C LAB - BLOOD DRAW Edited Resu lt - Final [facility] [employer] [address] [facility] [address] [place] [address], [facility] [place] [employer] [address] [facility] ([address]) [place] [address] * (ABNORMAL) LIPID PANEL (06/28/2022 9:13 AM EST) CHOLESTEROL, TOTAL 181 <200 mg/dL [facility] HDL CHOLESTEROL 50 > OR = 50 mg/dL [facility] TRIGLYCERIDES 113 <150 mg/dL [facility] LDL-CHOLESTEROL 109(H) 99 mg/dL (calc) [employer] Comment: Reference range: <100 Desirable range <100 mg/dL for primary prevention; ?? <70 mg/dL for patients with CHD or diabetic patients with > or = 2 CHD risk factors. LDL-C is now calculated using the Bill-Hess calculation, which is a validated novel method providing better accuracy than the Friedewald equation in the estimation of LDL-C. Bill ROSS et al. FATIMAH. 2013;310(19): 8172-4104 (http://education.[employer]/faq/SMX677) CHOL/HDLC RATIO 3.6 <5.0 (calc) [facility] NON-HDL CHOLESTEROL 131(H) <130 mg/dL (calc) [employer] Comment: For patients with diabetes plus 1 major ASCVD risk factor, treating to a non-HDL-C goal of <100 mg/dL (LDL-C of <70 mg/dL) is considered a therapeutic option. Blood Blood / Unknown 06/28/2022 9 :13 AM EST 06/28/2022 9:13 AM EST us Lily Lee PA-C LAB - BLOOD DRAW Final Resul t [facility] [address] [facility] [address] [place] [address], [facility] [address] [facility] [address]) [place] [address] * COMPREHENSIVE METABOLIC PANEL (06/28/2022 9:13 AM EST) GLUCOSE 89 65 - 99 mg/dL [facility] Comment: ?Fasting reference interval UREA NITROGEN (BUN) 13 7 - 25 mg/dL [facility] CREATININE (blood) 0.70 0.50 - 0.99 mg/dL [facility] EGFR 109 > OR = 60 mL/min/1 .73m2 [facility] Comment: The eGFR is based on the CKD-EPI 2020 equation. To calculate the new eGFR from a previous Creatinine or Cystatin C result, go to https://www.kidney.org/professionals/ kdoqi/gfr%5Fcalculator BUN/CREATININE RATIO NOT APPLICABLE 6 - [facility] SODIUM 140 135 - 146 mmol/L [facility] POTASSIUM 4.1 3.5 - 5.3 mmol/L [facility] CHLORIDE 102 98 - 110 mmol/L [facility] CARBON DIOXIDE 28 20 - 32 mmol/L [facility] CALCIUM 9.8 8.6 - 10.2 mg/dL [facility] PROTEIN, TOTAL 7.2 6.1 - 8.1 g/dL [facility] ALBUMIN 4.3 3.6 - 5.1 g/dL [facility] GLOBULIN 2.9 1.9 - 3.7 g/dL (calc) [facility] ALBUMIN/GLOBUL IN RATIO 1.5 1.0 - 2.5 (calc) [facility] BILIRUBIN, TOTAL 0.3 0.2 - 1.2 mg/dL [facility] ALKALINE PHOSPHATASE 49 31 - 125 U/L [facility] AST 20 10 - 30 U/L [facility] ALT 21 6 - 29 U/L [facility] Blood Blood / Unknown 06/28/2022 9 :13 AM EST 06/28/2022 9:13 AM EST Lily Lee PA-C LAB - BLOOD DRAW Edited Resu lt - Final [facility] [address] [facility] [address] [place] [address], [place] [facility] [address] [facility] ([address]) [place] [address] * HIV-1 & HIV-2 ANTIBODIES (12/06/2018 10:29 AM EDT) [facility] HIV 1 AND 2 ANTIBODY SCREEN NEGATIVE NEGATIVE [employer] [facility] Comment: This assay is a 4th [...] AM EDT 12/06/2018 1:23 PM EDT Narrative [facility] - 12/06/2018 7:32 PM EDT [employer], a member of [address] [address] Obiee Consultant - Dianna Trejo MD PT ID [id number] ORD# [id number] [facility] LAB - BLOOD DRAW Final Resu lt Performing Organization Address City/[facility] [[email or web address]] Co de Phone Number [address] [address], from Last 3 Months or Most Recently Relevant to Health Maintenance Insurance [employer] Care Teams Investor Relations Associate Relationship Specialty Start Date End Date Lily Lee PA-C [address] [place] [address] PCP - General FAMILY MEDICINEJESSICA 06/15/21
--- OUTSIDE RECORDS SUMMARY | 2024-11-10 14:16 | XMS_ITS | Encounter Summary ---
Author Organization [employer] Address [address] [place] [address] [address] [place] [address] Care Team Providers Care Trampoline Team Coach Name Role Phone Name, Arden WALDROP Primary Care Provider [phone] Reason for Visit * Reason Onset Date Comments New Patient 04/18/2023 Encounter Details Date Type Department Care Team (Late st Contact Info) Description 04/18/2023 Telephone [facility] [address] [place] [address] [phone] Randall Whitman MD [address] [place], [place] [phone] New Patient Social History Tobacco Use Types [...] 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 EFFECTIVE SINCE 04/18/2023 documented in this encounter Plan of Treatment Upcoming Encounters Date Type Department Care Team (Late st Contact Info) Description 02/04/2025 3:15 PM EDT Office Visit [facility] [address] [place] [address] [phone] Name, MD Arden [address] [place] [address] documented as of this encounter Visit Diagnoses Not on filedocumented in this encounter Care Teams Trampoline Team Coach Relationship Specialty Start Date End Date Name, MD Arden [address] [place] [address] PCP - General Internal Medicine 04/10/24 documented as of this encounter
[2024-11-10 14:17] LABS: MANUAL DIFF FLAG NO
[2024-11-10 14:18] LABS: Basophils Absolute Auto 0.1 X10*3/uL (0.0-0.2); Basophils Percent Auto 0.5 % (0-2); Eosinophils Percent Auto 0.2 % (0-4); Hematocrit 40.4 % (37.0-47.0); Hemoglobin 13.6 g/dl (12.0-16.0); Imm Gran Abs Auto 0.03 X10*3/uL (0.00-0.03); Imm Gran Pct Auto 0.2 % (0.0-0.4); Lymphocytes Absolute Auto 1.3 X10*3/uL (1.2-4.9); Lymphocytes Percent Auto 10.6 % (20-40); Mean Corpuscular HGB Conc 33.7 g/dl (31.0-35.0); Mean Corpuscular Hemoglobin 29.3 pg (27.0-33.0); Mean Corpuscular Volume 87.1 fL (80.0-98.0); Monocytes Absolute Auto 0.5 X10*3/uL (0.1-1.2); Monocytes Percent Auto 4.2 % (2-11); Neutrophils Absolute Auto 10.2 x10*3/uL (2.0-8.3); Neutrophils Percent Auto 84.3 % (45-73); Platelet Count 268 X10*3/uL (160-400); Red Blood Count 4.64 X10*6/uL (4.20-5.50); Red Cell Distribution Width 12.5 % (11.0-16.0); White Blood Count 12.2 X10*3/uL (4.8-10.8)
[2024-11-10 14:53] LABS: HCG Quantitative < 2 mIU/mL
[2024-11-10 15:19] VITALS: BP 119/74; PULSE 99; RESP 13; O2SAT 98
[2024-11-10 16:35] LABS: Anion Gap 15 (12-20); Blood Urea Nitrogen 10 mg/dL (9-16); Calcium 9.5 mg/dL (8.4-10.2); Carbon Dioxide 25 mmol/L (22-29); Chloride 105 mmol/L (96-108); Creatinine Clr Calc Pharmacy 81.4; Estimated Glomerular Filt Rate > 60; Glucose Random 136 mg/dL (60-115); Sodium 141 mmol/L (135-145)
[2024-11-10] MEDS: iohexoL 350 MG/ML 100 ML INFUS..BTL 60 ML IV (16:57)
[2024-11-10 18:19] VITALS: BP 115/73; PULSE 87; RESP 16; TEMP 36.9; O2SAT 100
== END 2024-11-10 18:20 | disposition home or self-care (01) ==
PROVIDERS: Emergency Provider Emergency Medicine; PCP Internal Medicine
DX: R06.02 Shortness of breath (principal); R20.0 Anesthesia of skin; R06.4 Hyperventilation; R11.2 Nausea with vomiting, unspecified; R07.0 Pain in throat; R55 Syncope and collapse; Z79.899 Other long term (current) drug therapy
CPT/HCPCS: 36415; 70491; 80048; 84702; 85025; 99283; 99284; Q9967

== ENCOUNTER → 2024-11-10 13:59 | Outpatient (BNV) | payer OTHER, SELFPAY | PROVIDERS: Emergency Provider Emergency Medicine; PCP Internal Medicine; Visit Provider Radiology Diagnostic Radiology | DX: R07.0 Pain in throat (principal); R06.02 Shortness of breath | CPT/HCPCS: 70491 ==

== ENCOUNTER 2024-12-10 09:06 | Outpatient (REF) | payer MEDICAID, SELFPAY ==
--- NOTE | ~2024-12-10 | FL_ITS ---
EXAMINATION: XR UPPER GI SERIES WITH SMALL BOWEL CLINICAL INFORMATION: Gastroesophageal reflux disease without esophagitis. COMPARISON: None available. TECHNIQUE: Patient is unable to tolerate thick barium. Hence a single contrast upper GI exam was performed. FINDINGS: Following oral administration of thin barium there is normal propagation of bolus from the oral cavity through the pharynx, esophagus into stomach without any evidence of obstruction, narrowing or stricture. On placing patient in supine and prone lying the course, caliber and peristalsis of the stomach, duodenal bulb and this CT is normal. The mucosal pattern of the stomach, duodenal bulb and this CT is normal. Incidental finding of a mild gastroesophageal reflux was seen without hiatal hernia. FLUOROSCOPY TIME: 1 minute 47 seconds DOSE AREA PRODUCT: 1515 uGy-m2 (microgray-meter squared) FL/FL upper GI w air w Ba Swallow IMPRESSION: Mild gastroesophageal reflux without hiatal hernia. Otherwise rest of the upper GI exam is unremarkable. Electronically signed by: Bubba Meyer MD 12/10/2024 11:32 AM EDT
--- OUTSIDE RECORDS SUMMARY | 2024-12-10 09:37 | XMS_ITS | Clinical Summary ---
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 Name Role Phone Name, Arden WALDROP Primary Care Provider [phone] Allergies No known active allergies Medications ketotifen [...] Encounters Date Type Department Care Team Description 11/11/2024 Orders Only [facility] [address] [place] [address] NameArden MD Thyroid nodule (Primary Dx) 11/10/2024 Orders Only [facility] [address] [place], [place] [phone] Corie Fleming 11/10/2024 Population Health Risk Score [facility] Department [address] [phone] Provider, Population Health Generic 10/17/2024 3:15 PM EDT Office Visit [facility] [address] [place] [address] NameArden MD Thyroid nodule (Primary Dx) 10/17/2024 Travel 09/22/2024 Orders Only GENERIC EXTERNAL DATA DEPARTMENT Provider, Generic External Data from Last 3 Months Immunizations Immunization Administration Dates Next Due Influenza, seasonal, injectable, [...] your housing situation today? I have jem sing 04/03/[address] you li [...] 02/04/2025 3:15 PM EDT Office Visit [facility] [address] [place] [address] Name, MD Arden [address] [place] [address] Health Maintenance Due Date Last Done Comments CT Colonography 1978 Colonoscopy 1978 Colorectal Cancer Screening 1978 FIT DNA/Cologuard 1978 FIT 1978 FOBT 1978 HIV Screening 1978 Sigmoidoscopy 1978 Disability Screening 1978 Alcohol/Substance Use Screening 1990 Family Planning [...] 04/11/2024 Cervical Cancer Screening 05/26/2029 HPV/Cotest 05/26/2029 05/26/2024 Pap Smear 05/26/2029 05/26/2024 RSV Patients and [...] patient's age to complete this topic Meningococcal B Vaccine Aged Out No l onger eligible based on patient's age to complete [...] Procedure Name Priority Date/Time Associated Diagnosis Comments CT SOFT TISSUE NECK W CONTRAST Routine 11/10/2024 5:58 PM EDT BASIC METABOLIC PANEL Routine 11/10/2024 4:07 PM EDT HCG, TOTAL, QN Routine 11/10/2024 2:13 PM EDT CBC WITH AUTO DIFFERENTIAL Routine 11/10/2024 2:13 PM EDT CYTOPATH-CELL ENHANCED Routine 11:10 AM EDT US GUIDED THYROID BIOPSY Routine 025 10:35 AM EDT Thyroid nodule BASIC METABOLIC PANEL Routine 10/20/2024 8:22 AM [...] 05/26/2024 4:43 PM EST Cervical cancer screening HPV MRNA E6/E7 REFLEX TO HPV 16, 18/45 Routine 05/26/2024 12:00 AM EST BI MAMMOGRAM SCREENING TOMOSYNTHESIS BILATERAL Routine 05/02/2024 3:25 PM EDT Encounter for screening mammogram for malignant neoplasm of breast LIPID PANEL, STANDARD Routine 04/11/2024 8:07 AM EDT Elevated LDL cholesterol level from Last 3 Months or Most Recently Relevant to Health Maintenance Results * CT Soft Tissue Neck w/ Contrast (11/10/2024 5:58 PM EDT) Anatomical Region Laterality Modality Head, Neck Computed Tomogra phy 11/10/2024 5:58 PM EDT Narrative 11/10/2024 5:59 PM EDT ? [facility] ?[address] ?[place] [address] ? CT Scan Report ? Signed ? Patient: Madi,Ara ?MR#: [id number] ?? [id number] ? : 1980 ?Acct:[id number] ? Age/Sex: 44 / F ?ADM Date: 11/10/24 ? Loc: HO.ED ? Attending Dr: ? Ordering Physician: Le Haskins MD ?? Date of Service: 11/10/24 ?? Procedure(s): CT soft tissue neck w IV con ?? Accession Number(s): [id number] ? cc: Ellyn Ruiz MD; Le Haskins MD ? Report Number: ?? [id number]: Total DLP = ??460.00 mGy-cm ? CLINICAL HISTORY: S p thyroid nodule biopsy, SOB, throat pain ? CT soft tissue neck with contrast ? Comparison: None ? Findings: ?? There are small tonsilliths in the left palatine tonsil which measure up ?? to 3 mm. Otherwise normal pharyngeal mucosa, oral cavity and larynx. ?? No suspicious lymph nodes. ?? Normal parotid and submandibular glands. ?? Heterogeneous thyroid with enlargement of the right lobe of the thyroid. ?? No CT evidence of recent biopsy; no soft tissue gas or hematoma. ?? Normal vessels and carotid space. ?? No acute fracture. ?? The lung apices are clear. ? Impression: ?? No acute findings. No evidence of recent thyroid biopsy or complication. ? This document has been electronically signed by: La Light MD ?? on 11/10/2024 17:58:04 ? Dictated By: ?La Vickers MD ? Signed By: ?<Electronically signed by La Vickers MD in OV> ? 11/10/241757 ? DD/ ? TD/TT: 11/10/241757 ? Pot Tender: ? Procedure Note Donotuseinterpreter, Image - 11/10/[address] [place] [address] [address] Scan Report Signed Patient: Ara BarrazaMR#: [id number] : 1980Acct:[id number] Age/Sex: 44 / FADM Date: 11/10/24 Loc: HO.ED Attending Dr: Ordering Physician: Le Haskins MD Date of Service: 11/10/24 Procedure(s): CT soft tissue neck w IV con Accession Number(s): [id number] cc: Ellyn Ruiz MD; Le Haskins MD Report Number: [id number]: Total DLP = 460.00 mGy-cm CLINICAL HISTORY: S p thyroid nodule biopsy, SOB, throat pain CT soft tissue neck with contrast Comparison: None Findings: There are small tonsilliths in the left palatine tonsil which measure up to 3 mm. Otherwise normal pharyngeal mucosa, oral cavity and larynx. No suspicious lymph nodes. Normal parotid and submandibular glands. Heterogeneous thyroid with enlargement of the right lobe of the thyroid. No CT evidence of recent biopsy; no soft tissue gas or hematoma. Normal vessels and carotid space. No acute fracture. The lung apices are clear. Impression: No acute findings. No evidence of recent thyroid biopsy or complication. This document has been electronically signed by: La Light MD on 11/10/2024 17:58:04 Dictated By: La Vickers MD Signed By: <Electronically signed by La Vickers MD in OV> 11/10/241757 DD/ 57 TD/TT: 11/10/241757 Pot Tender: [facility] External Provider IMG CT PROCEDURES Final Result * (ABNORMAL) Basic Metabolic Panel (11/10/2024 4:07 PM EDT) Only the most recent of2 resultswithin the time period is included. Sodium 141 135 - 145 mmol/L [facility] Potassium 4.0 3.3 - 5.1 mmol/L [facility] Chloride 105 96 - 108 mmol/L [facility] Carbon Dioxide 25 22 - 29 mmol/L [facility] Anion Gap 15 12 - 20 [facility] Urea Nitrogen (BUN) 10 9 - 16 mg/dL [facility] Creatinine, Serum 0.74 0.5 - 1.4 mg/dL [facility] Creatinine Clr Calc Pharmacy 81.4 [facility] Comment:Provided height and weight: 152.4 cm,67.585 kg.eGFR (calculated from the MDRD study equation) and eCrCl(calculated from the Cockcroft-Gault equation) are based ondifferent parameters and may not yield comparable results.If eCrCl result is absurd, please check patient'sheight/weight. Estimated Glomerular Filt Rate >60 [facility] Comment:Chronic Kidney Disea se: Estimated GFR < 60 mL/min/1.20y6Ohspzu Kidney Disease: Estimated GFR < 15 mL/min/1.73m2 Glucose 136(H) 60 - 115 mg/dL [facility] Calcium 9.5 8.4 - 10.2 mg/dL [facility] 11/10/2024 4:07 PM EDT 11/10/2024 4:13 PM EDT us Generic External Data Provider LAB BLOOD ORDERAB LES Final Result [facility] [address] [place], [place] [phone] * (ABNORMAL) CBC auto differential (11/10/2024 2:13 PM EDT) Only the most recent of2 resultswithin the time period is included. White Blood Count 12.2(H) 4.8 - 10.8 X10*3/uL [facility] Red Blood Count 4.64 4.20 - 5.50 X10*6/uL [facility] Hemoglobin 13.6 12.0 - 16.0 g/dl [facility] Hematocrit 40.4 37.0 - 47.0 % [facility] Mean Corpuscular Volume 87.1 80.0 - 98.0 fL [facility] Mean Corpuscular Hemoglobin 29.3 27.0 - 33.0 pg [facility] Mean Corpuscular HGB Conc 33.7 31.0 - 35.0 g/dl [facility] Red Cell Distribution Width 12.5 11.0 - 16.0 % [facility] Platelet Count 268 160 - 400 X10*3/uL [facility] Mean Platelet Volume 11.0 9.4 - 12.3 fL [facility] Neutrophils Percent Auto 84.3(H) 45 - 73 % [facility] Imm Gran Pct Auto 0.2 0.0 - 0.4 % [facility] Lymphocytes Percent Auto 10.6(L) 20 - 40 % [facility] Monocytes Percent Auto 4.2 2 - 11 % [facility] Eosinophils Percent Auto 0.2 0 - 4 % [facility] Basophils Percent Auto 0.5 0 - 2 % [facility] NRBC Pct Auto 0.0 0.0 - 0.2 /100WBC [facility] Neutrophils Absolute Auto 10.2(H) 2.0 - 8.3 x10*3/uL [facility] Imm Gran Abs Auto 0.03 0.00 - 0.03 X10*3/uL [facility] Lymphocytes Absolute Auto 1.3 1.2 - 4.9 X10*3/uL [facility] Monocytes Absolute Auto 0.5 0.1 - 1.2 X10*3/uL [facility] Eosinophils Absolute Auto 0.0 0.0 - 0.4 X10*3/uL [facility] Basophils Absolute Auto 0.1 0.0 - 0.2 X10*3/uL [facility] NRBC Abs Auto 0.000 0.0 - 0.012 X10*3/uL [facility] 11/10/2024 2:13 PM EDT 11/10/2024 2:16 PM EDT Generic External Data Provider LAB BLOOD ORDERAB LES Final Result Performing Organization Address [facility]/ZIP Co de Phone Number [facility] [address] [place] [address] [phone] * hCG, Total, Quantitative (11/10/2024 2:13 PM EDT) HCG Quantitative <2 mIU/mL [facility] Comment:Weeks post LMP Appro ximate hCG(Last Menstrual Period) Range (mIU/ml)3 - 4 weeks 9 - 1304 - 5 weeks 75 - 2,6005 - 6 weeks 850 - 20,8006 - 7 weeks 4000 - 100,2007 - 12 weeks 11,500 - 289,46757 - 16 weeks 18,300 - 137,90483 - 29 weeks (2nd trimester) 1,400 - 53,48068 - 41 weeks (3rd trimester) 940 - 60,000The Monsalve B- hCG assay is used for the early detection ofpregnancy; it cannot be used to diagnose any conditionunrelated to . If a B-hCG level is not supportedby the clinical evidence, results should be confirmed by analternative method (qualitative urine hCG, for example). 11/10/2024 2:13 PM EDT 11/10/2024 2:16 PM EDT us Generic External Data Provider LAB BLOOD ORDERAB LES Final Result Performing Organization Address [facility]/ZIP Co de Phone Number [facility] [address] [place] [address] [phone] * Cytopath-cell enhanced (11/10/2024 11:10 AM EDT) 11/10/2024 11:1 0 AM EDT 11/10/2024 11:38 AM EDT Narrative [facility] - 11/11/2024 7:59 AM EDT ----- ------- Name: Ara Barraza ?Age/Sex: 44/F ? : 1980 Unit#: [id number] ?? Attend Dr: Arden Mcpherson MD ?Re11/10/24 ?Status: DEP REF ? Location: HO.US ? Disch: ? ----- ------- SPEC : [id number] ? RECD: 11/10/24 ? STATUS: ??SOUT ? REQ NUM: [id number] ? MARIAN: 11/10/24-1110 ? SUBM DR: Bubba Meyer MD ? ENTERED: ??11/10/24-1211 ?SP TYPE: Cytology ? OTHR DR: Arden Mcpherson MD ? ORDERED: ??Cyto-enhanced ? Diagnosis ?? Thyroid, right nodule, fine needle aspiration: ??Non-diagnostic (Delmar category I). ? COMMENT: ??Rare groups of follicular epithelial cells in a macrofollicular arrangement are ?? present, too few for diagnostic purposes. ??Colloid is present as well as pigment laden ?? macrophages and blood. ?Clinical History Nodule, had biopsy 5 years ago at [facility], results unknown ? Material Received ?? Right thyroid nodule ? Gross Description Received are 28 cc of very light bloody tinged CytoLyt fluid from which a ThinPrep slide is prepared. ??A Copies To: ?? Bubba Meyer MD ?? [address] [place] [address] ?? [place] [address] ?? [phone] ?? Name,Arden WALDROP ?? [address] [facility] ?? [place] [address] ?? [phone] ----- ------- Signed (signature on file) Skip Sorensen MD 11/11/24 0759 ? ----- ------- ? END OF REPORT ? us Generic External Data Provider LAB CYTOLOGY YOLAE BOUCHRA Final Result [facility] [address] [place] [phone] [phone] * US Guided Thyroid Biopsy (11/10/2024 10:35 AM EDT) Anatomical Region Laterality Modality Head, Neck Ultrasound 11/10/2024 10:3 5 AM EDT Narrative 11/11/2024 2:10 PM EDT ? [facility] ?[address] ?[place] [address] ? Ultrasound Report ? Signed ? Patient: Parag Barrazaqueline ?MR#: [id number] ?? [id number] ? : 1980 ?Acct:[id number] ? Age/Sex: 44 / F ?ADM Date: 11/10/24 ? Loc: HO.US ? Attending Dr: Arden Mcpherson MD ? Ordering Physician: Arden Mcpherson MD ?? Date of Service: 11/10/24 ?? Procedure(s): US biopsy thyroid ?? Accession Number(s): [id number] ? cc: Arden Mcpherson MD ? EXAMINATION: Ultrasound-guided right thyroid lower pole nodule ?? fine-needle aspiration. ? CLINICAL INDICATION: Right lower pole nodule measuring 4.3 cm on ?? previous exam. ? COMPARISON: Ultrasound thyroid 04/25/2024. ? TECHNIQUE: Following explaining ultrasound-guided fine-needle ?? aspiration biopsy of right thyroid lobe lower pole nodule procedure, ?? benefits and risk, a written consent was obtained from the patient. ?? Patient was placed supine on ultrasound table and preliminary ?? ultrasound imaging the right neck was obtained. An optimal site was ?? selected along the midline right lower neck area. The skin was marked, ?? cleaned and draped in usual sterile manner. 1% lidocaine was inserted ?? puncture site. Under sterile ultrasound guidance a 25-gauge needle ?? attached to a syringe was advanced into the lower pole nodule and a ?? fine-needle aspiration was obtained x3. Samples are collected was sent ?? in Afirma and CytoLyt tubes for further imaging. Postprocedure complete ?? hemostasis achieved. Repeat ultrasound reveals no bleed or hematoma. ?? Simple Band-Aid applied at the puncture site. Patient tolerated ?? procedure extremely well. ? FINDINGS: Preliminary ultrasound imaging there is a heterogeneous ?? nodule lower pole right lobe measuring 2.3 x 1.61 cm with slight ?? increased vascularity along the anterior half of the nodule ? 3 pass fine-needle aspiration biopsy of this nodule was performed and ?? sent in CytoLyt and Afirma solutions. ? US/US biopsy thyroid ?? IMPRESSION: Successful fine-needle aspiration biopsy of right thyroid ?? lobe lower pole nodule performed. ? Electronically signed by: ??Bubba Meyer MD ??11/11/2024 02:08 PM EDT RP ? Dictated By: ?Bubba Meyer MD ? Signed By: ?<Electronically signed by Bubba Meyer MD in OV> ?11/11/24 1408 ? DD/ 1035 ? TD/TT: 11/10/24 1046 ? Pot Tender: MSM ? Procedure Note Sadie Posadas - 11/11/2024 [place] [address] Ultrasound Report Signed Patient: Kay Barraza#: [id number] : 1980Acct:[id number] Age/Sex: 44 / FADM Date: 11/10/24 Loc: HO.US Attending Dr: Arden Mcpherson MD Ordering Physician: Arden Mcpherson MD Date of Service: 11/10/24 Procedure(s): US biopsy thyroid Accession Number(s): [id number] cc: Arden Mcpherson MD EXAMINATION: Ultrasound-guided right thyroid lower pole nodule fine-needle aspiration. CLINICAL INDICATION: Right lower pole nodule measuring 4.3 cm on previous exam. COMPARISON: Ultrasound thyroid 04/25/2024. TECHNIQUE: Following explaining ultrasound-guided fine-needle aspiration biopsy of right thyroid lobe lower pole nodule procedure, benefits and risk, a written consent was obtained from the patient. Patient was placed supine on ultrasound table and preliminary ultrasound imaging the right neck was obtained. An optimal site was selected along the midline right lower neck area. The skin was marked, cleaned and draped in usual sterile manner. 1% lidocaine was inserted puncture site. Under sterile ultrasound guidance a 25-gauge needle attached to a syringe was advanced into the lower pole nodule and a fine-needle aspiration was obtained x3. Samples are collected was sent in Afirma and CytoLyt tubes for further imaging. Postprocedure complete hemostasis achieved. Repeat ultrasound reveals no bleed or hematoma. Simple Band-Aid applied at the puncture site. Patient tolerated procedure extremely well. FINDINGS: Preliminary ultrasound imaging there is a heterogeneous nodule lower pole right lobe measuring 2.3 x 1.61 cm with slight increased vascularity along the anterior half of the nodule 3 pass fine-needle aspiration biopsy of this nodule was performed and sent in CytoLyt and Afirma solutions. US/US biopsy thyroid IMPRESSION: Successful fine-needle aspiration biopsy of right thyroid lobe lower pole nodule performed. Electronically signed by: Bubba Meyer MD 11/11/2024 02:08 PM EDT Dictated By: Bubba Meyer MD Signed By: <Electronically signed by Bubba Meyer MD in OV> 11/11/24 1408 DD/ 1035 TD/TT: 11/10/24 1046 Pot Tender: [facility] us Arden Mcpherson MD IMG US PROCEDURES Final Result * TSH W/Reflex to FT4 (10/20/2024 8:22 AM EDT) TSH reflex Free T4 1.75 0.32 - 4.0 uIU/mL [facility] Blood Venous blood specimen / Unknown 10/20/2024 8:22 AM EDT 10/20/2024 11:07 AM EDT us Arden Mcpherson MD LAB BLOOD ORDERABLES Final Resul t [facility] [address] [place] [phone] * (ABNORMAL) VITAMIN D 25-OH (D2 AND D3) (09/22/2024 10:31 AM EDT) Vitamin D, 25-OH, D2 <4 ng/mL [facility] Comment:This test was develo ped and its analytical performancecharacteristics have been determined by [employer] [place], [place]. It hasnot been cleared or approved by the U.S. Food and DrugAdministration. This assay has been validated pursuantto the CLIA regulations and is used for clinicalpurposes.THIS TEST WAS PERFORMED AT:[employer] [id number] [place] [address]UNDUTXANAYLA VAUGHAN MD,PHD Vitamin D, 25-OH, D3 14 ng/mL [facility] Comment:This test was develo ped and its analytical performancecharacteristics have been determined by [employer] [place], [place]. It hasnot been cleared or approved by the U.S. Food and DrugAdministration. This assay has been validated pursuantto the CLIA regulations and is used for clinicalpurposes. Vitamin D, 25-OH, Total 14(A) 30 - 100 ng/mL [facility] Comment:Vitamin D, 25-Hydrox y reports [...] = 30 ng/mL.For additional information, please refer tohttp://education.NERITES/faq/ERZ769(This link is being provided for informational/educational purposes only.) 09/22/2024 10:3 1 AM EDT 09/22/2024 11:09 AM EDT Generic External Data Provider LAB BLOOD ORDERAB LES Final Result Performing Organization Address [facility]/ZIP Co de Phone Number [facility] [address] [place] [phone] * Vitamin B12 (Cobalamin) and Folate Panel, Serum (09/22/2024 10:31 AM EDT) Vitamin B12 488 200 - 900 pg/mL [facility] Comment:NORMAL 200-900 PG/ML INDETERMINATE 160-199 PG/ML DEFICIENT < 160 PG/ML Folate 14.4 > or = 4.0 ng/mL [facility] Comment:Reference Values:> o r = [...] Final Result Performing Organization Address [facility] de Phone Number [facility] [address] [place] [phone] * Tissue Transglutaminase Antibody, IgA (09/22/2024 10:31 AM EDT) Transglutaminase IgA <1.0 U/mL [facility] Comment:Value Interpretation ----- <15.0 Antibody not detected> or = 15.0 Antibody detectedTHIS TEST WAS PERFORMED AT:[facility] [address] [id number] CANALES MD 09/22/2024 10:3 1 AM EDT 09/22/2024 11:09 AM EDT Generic External Data Provider LAB BLOOD ORDERAB LES Final Result Performing Organization Address City/[facility]/ZIP Co de Phone Number [facility] [address] [place] [address] [phone] * Lipase (09/22/2024 10:31 AM EDT) Lipase 21 8 - 78 U/L [facility] 09/22/2024 10:3 1 AM EDT 09/22/2024 11:22 AM EDT us Generic External Data Provider LAB BLOOD ORDERAB LES Final Result Performing Organization Address [facility] Co de Phone Number [facility] [address] [place] [phone] * Hepatic Function Panel (09/22/2024 10:31 AM EDT) Bilirubin, Total 0.5 0.0 - 1.0 mg/dL [facility] Bilirubin, Direct 0.2 0.0 - 0.5 mg/dL [facility] Aspartate Amino Transferase 21 5 - 31 U/L [facility] Alanine Aminotransferase 17 0 - 31 U/L [facility] Total Protein 7.5 6.5 - 8.0 g/dL [facility] Albumin Level 4.3 3.5 - 5.0 g/dL [facility] Alkaline Phosphatase 56 39 - 117 U/L [facility] 09/22/2024 10:3 1 AM EDT 09/22/2024 11:22 AM EDT us Generic External Data Provider LAB BLOOD ORDERAB LES Final Result Performing Organization Address [facility] Co de Phone Number [facility] [address] [place] [phone] * Pap Smear (05/26/2024 4:43 PM EST) Swab 05/26/2024 4:43 PM EST 05/27/2024 9:00 AM EST Narrative [facility] - 05/29/2024 8:49 AM EST ----- ------- Name: Felisa Barraza ? Age/Sex: 44/F ? : 1980 Unit#: [id number] ?? Attend : ?Re05/26/24 ?Status: PRE REF ? Location: HO.LNP ?Disch: ? ----- ------- SPEC : [id number] ?RECD: 05/27/24 ? STATUS: ??SOUT ? REQ NUM: [id number] ? MARIAN: 05/26/24-1642 ? SUBM DR: Cheyanne Spann MEAT HOSTESS ? ENTERED: ??05/27/24-1017 ?SP TYPE: Pap Smr ?OTHR DR: ? [...] ? END OF REPORT ? us Cheyanne Zana MEAT HOSTESS LAB CYTOLOGY ORDERABLES Final Re sult Performing Organization Address [facility]/ZIP Co de Phone Number [facility] [address] [place] [address] [phone] * HPV mRNA E6/E7 w/Reflex to HPV Genotypes 16, 18/45 (05/26/2024 12:00 AM EST) us Historical Provider MD LAB CYTOLOGY ORDERABLES F inal Result Performing Organization Address [facility] Co de Phone Number [facility] [address] [place] [address] [phone] * BI Mammogram Screening Tomosynthesis Bilateral (05/02/2024 3:25 PM EDT) Anatomical Region Laterality Modality Breast Bilateral Mammography 05/02/2024 3:25 PM EDT Narrative 05/14/2024 4:06 PM EDT ? [facility] ? [address] ?[place] [address] ? Mammography Report ? Signed ? Patient: Madi,Felisa ?MR#: [id number] ?? [id number] ? : 1980 ?Acct:[id number] ? Age/Sex: 44 / F ?ADM Date: 10/18/24 ? Loc: HO.MAMMO ? Attending Dr: Arden Name MD ? Ordering Physician: Name,Arden MD ?Results: 1Negative ? Date of Service: 10/18/24 ?Follow Up: 1 Year From Orig ?? inal Mammogram ? Procedure(s): MM tomosynthesis screening BI ?? Accession Number(s): [id number] ? cc: Name,Arden WALDORP ? EXAMINATION: ?? MM SCREENING DIGITAL BREAST [...] DD/ 1525 ? TD/TT: 05/02/24 1530 ? Pot Tender: ? Procedure Note Sadie Posadas - 05/14/2024 [facility] [address] [place] [address] Dr. Jain, [place] [address] Mammography Report Signed Patient: Felisa BarrazaMR#: [id number] : 1980Acct:[id number] Age/Sex: 44 / FADM Date: 05/02/24 Loc: HO.MAMMO Attending Dr: Arden Mcpherson MD Ordering Physician: Arden Mcpherson MDResults: 1Negative Date of Service: 05/02/24Follow Up: 1 Year From Orig inal Mammogram Procedure(s): MM tomosynthesis screening BI Accession Number(s): [id number] cc: Arden Mcpherson MD EXAMINATION: MM SCREENING [...] 05/14/24 1603 DD/ 1525 TD/TT: 05/02/24 1530 Pot Tender: Arden Mcpherson MD IM BI PROCEDURES Final Result * Lipid Panel, Standard (04/11/2024 8:07 AM EDT) Triglycerides 74 <150 mg/dL [facility] Comment:Desirable Triglyceri de: less than 150 mg/dLBorderline High Triglyceride 150-199 mg/dLHigh Triglyceride: 200-499 mg/dLVery High Triglyceride: greater than or equal to 5OO mg/dL Cholesterol 175 <200 mg/dL [facility] Comment:Desirable Cholestero l: less than 200 mg/dLBorderline High Cholesterol: 200-239 mg/dLHigh Cholesterol: greater than 239 mg/dL LDL Cholesterol Calculated 94 <100 mg/dL [facility] Comment:Desirable LDL: less than 100 mg/dLNear Optimal/Above Optimal LDL: 110- 129 mg/dLBorderline High LDL: 130-159 mg/dLHigh LDL: 160-189 mg/dLVery High LDL: greater than or equal to 190 mg/dL HDL Cholesterol 67 >40 mg/dL [facility] Comment:Desirable HDL: great er than 40 mg/dL Note: This HDL assay may give artificially low results in patients with liver disease. Blood Venous blood specimen / Unknown 04/11/2024 8:07 AM EDT 04/11/2024 11:38 AM EDT us Arden Name LAB BLOOD ORDERABLES Final Resul t [facility] [address] [place] [address] [phone] from Last 3 Months or Most Recently Relevant to Health Maintenance Insurance [facility] C3 [facility] Care Teams Cotton Machine Operator Relationship Specialty Start Date End Date Name, MD Arden [address] [place] [address] PCP - General Internal Medicine 04/10/24
== END 2024-12-10 09:07 | disposition home or self-care (01) ==
LOC: HO.XRAY 09:06
PROVIDERS: PCP Internal Medicine; Visit Provider Nurse Practitioner Family
DX: K21.9 Gastro-esophageal reflux disease without esophagitis (principal); R10.13 Epigastric pain; K59.01 Slow transit constipation
CPT/HCPCS: 74246; 99212

== ENCOUNTER → 2024-12-10 09:08 | Outpatient (BNV) | payer MEDICAID, SELFPAY | PROVIDERS: PCP Internal Medicine; Visit Provider Radiology Diagnostic Radiology | DX: K21.9 Gastro-esophageal reflux disease without esophagitis (principal) | CPT/HCPCS: 74246 ==

== ENCOUNTER 2024-12-10 15:21 | Outpatient (AMB) | payer MEDICAID, SELFPAY ==
--- NOTE | 2024-12-10 15:26 | A.OFFVIS_ITS ---
Vital Signs 12/10/24 15:42 Height 5 ft Weight 149 lb BMI 29.1 BP 136/80 Blood Pressure Location Rt brachial Position Sitting Pulse 84 Pulse Source Pulse Oximeter Pulse Oximetry (%) 98 Oxygen Delivery Method Room Air Intake Visit Reasons: Follow up discuss colo/constipation Intake Note: ESTABLISHED PATIENT for mgmt of constipation + GERD. Barium swallow today. Labs done. Barium swallow is done. Chief Complaint; C.O. persistent epigastric and RLQ pain. Pt is not currently taking PPI. No additional sx or concerns. Pt is no longer taking senna as she does not feel that she needs it. Oncology Physician Assistant Required: Yes Oncology Physician Assistant Services: Oncology Physician Assistant Present Oncology Physician Assistant Name: Eliu [id number] Information Interpreted: clinical only Accompanied by: Self / Same As Patient Allergies No Known Allergies Allergy (Verified 12/10/24 15:27) HPI HPI Follow up discuss colo/constipation: Details: LAST VISIT Screen for colon cancer Constipation Postprandial epigastric pain Plan Patient will avoid dietary triggers late night snacking. Staying upright for minimum 3 hours after meals discussed with patient. Patient reports epigastric pain occasionally will check liver panel, lipase, transglutaminase, vitamin levels. Patient will be sent for upper GI with barium swallow. For now we will hold off on sending script for PPI or H2 shmuel. We will re-evaluate after upper GI series. Patient was encouraged to avoid dietary triggers late night snacking. Staying upright for minimal 3 hours after meals discussed with her. Patient will start taking Senokot. Increased drooling in taking activity to promote better bowel motility. Patient will try senna for 2-3 weeks and is not effective she will call our office. Patient will follow-up in 3 months to discuss going for colonoscopy and upper endoscopy. She is agreeable to this plan and verbalizes understanding of instructions. She was given the opportunity to ask questions and all questions answered. ? Thank you for allowing me to participate in her care Orders Orders Vitamin B12 and Folate Today R19.7 Liver Panel Today R74.01 Vitamin D 25-OH (D2 and D3) Today E55.9 FL upper GI w Ba Swallow Today K21.9 Transglutaminase IgA Today R10.9 Lipase Today R10.9 Medications New sennosides (Natural Senna Laxative) 17.2 mg (2 x 8.6 mg) PO BEDTIME 60 tabs 3RF constipation K59.00 TODAY'S VISIT Patient is here today for follow-up. Upper GI series with barium swallow discussed with patient. Mild reflux found. Patient is currently not on any PPI or H2 shmuel. Reports that she is moving her bowels well when she takes prune juice. Patient denies any dyspepsia, dysphagia or odynophagia. Labs discussed with patient. No abnormal findings except for low vitamin-D level. Patient is currently taking vitamin-D daily if she does not forget. Patient denies any other GI concerning symptoms. PFSH Medical History Constipation Family History Maternal Uncle Colon cancer Social History Alcohol intake: never Patient Tobacco Use Status: Never used Tobacco Review of Systems Const Denies weight gain and Denies weight loss ENT Reports no additional complaints, Denies dysphagia and Denies odynophagia Card Reports no additional complaints Resp Reports no additional complaints GI Reports abdominal pain (Epigastric, RUQ), Denies belching, Denies melena, Denies bloating, Denies change in bowel habits, Reports constipation, Denies dysphagia, Denies excessive flatus, Denies dyspepsia, Reports heartburn, Denies diarrhea, Denies loose stools, Denies nausea, Denies odynophagia and Denies vomiting Reports no additional complaints Musc Reports no additional complaints Neuro Reports no additional complaints Psych Reports no additional complaints Endo Reports no additional complaints Physical Exam Vital Signs: Last Vital Signs Pulse 84 12/10/24 15:42 BP 136/80 12/10/24 15:42 Pulse Ox 98 12/10/24 15:42 Oxygen Delivery Method Room Air 12/10/24 15:42 BMI result Body Mass Index 29.1 Const General: healthy appearing and no acute distress Nutritional Appearance: obese Orientation/consciousness: patient oriented x3 Resp Effort & Inspection: normal respiratory effort, able to speak in complete sentences, no tracheal deviation and symmetric chest movement Auscultation: clear to auscultation bilaterally Cardio Rate: regular rate GI Inspection: Yes normal to inspection, No distended and Yes obesity Palpation (GI): Soft to palpation, not firm, nontender and No hepatosplenomegaly present Auscultation: normal bowel sounds General: Yes no CVA tenderness Back/Spine/Pelvis Back: no CVA tenderness Skin General skin exam: elasticity normal, turgor normal and dry skin Neuro General: patient oriented x3 Psych Appearance: grossly normal Mental Status: mental status grossly normal Results Reviewed Results Reviewed: UPPER GI SERIES WITH BARIUM SWALLOW FINDINGS: Following oral administration of thin barium there is normal propagation of bolus from the oral cavity through the pharynx, esophagus into stomach without any evidence of obstruction, narrowing or stricture. On placing patient in supine and prone lying the course, caliber and peristalsis of the stomach, duodenal bulb and this CT is normal. The mucosal pattern of the stomach, duodenal bulb and this CT is normal. Incidental finding of a mild gastroesophageal reflux was seen without hiatal hernia. FLUOROSCOPY TIME: 1 minute 47 seconds DOSE AREA PRODUCT: 1515 uGy-m2 (microgray-meter squared) FL/FL upper GI w air w Ba Swallow IMPRESSION: Mild gastroesophageal reflux without hiatal hernia. Otherwise rest of the upper GI exam is unremarkable. Laboratory Tests 09/22/24 10:31 Lipase 21 Vitamin B12 488 25-OH Vitamin D Total 14 L Folate 14.4 Tiss Transglutamin IgA <1.0 Assessment & Plan Assessment & Plan (1) Constipation: Code(s): K59.00 - Constipation, unspecified Qualifiers: Constipation type: slow transit constipation Qualified Code(s): K59.01 - Slow transit constipation (2) Postprandial epigastric pain: Code(s): R10.13 - Epigastric pain Plan Patient will continue taking vitamin-D daily. Will start her on pantoprazole 20 mg daily. Patient will be sent for upper endoscopy. Patient is due to go for colonoscopy. What to expect before during and after procedure discussed with patient. Stressed the importance of good bowel prep and clear liquid diet day before procedure. Patient may start taking Dulcolax 2 tablets 1 week before procedure with 4 tablets day before procedure followed by split MiraLax prep. Patient denies any issues with anesthesia in the past. No history of sleep apnea. Not on any anticoagulation medication. Patient is agreeable to this plan and verbalizes understanding of instructions. She was given the opportunity to ask questions and all questions answered. Thank you for allowing me to participate in her care Medications: New pantoprazole 20 mg PO DAILY 30 tabs 3RF bisacodyl (Dulcolax (bisacodyl)) Start taking 2 tablet every night 7 days before the procedure and 1 day before procedure take 4 tablets at noon time followed by MiraLax prep 10 mg (2 x 5 mg) PO BEDTIME 16 tabs 0RF Z12.11 - Encounter for screening for malignant neoplasm of colon polyethylene glycol 3350 (Miralax) As directed by gastroenterology department at [facility] 238 grams PO ONCE 238 grams 0RF Z12.11 - Encounter for screening for malignant neoplasm of colon Coding Level of Care Code Est Pt Level 3 (62066) Diagnoses Slow transit constipation K59.01 Constipation type: slow transit constipation Postprandial epigastric pain R10.13 Time Spent (min) 30 Comment 20 minutes spent with patient and additional 10 minutes spent reviewing her records
[2024-12-10 15:42] VITALS: BP 136/80; PULSE 84; O2SAT 98; BMI 29.1
== END 2024-12-10 16:14 | disposition home or self-care (01) ==
LOC: HO.HGI 15:22
PROVIDERS: PCP Internal Medicine; Visit Provider Nurse Practitioner Family
DX: K59.01 Slow transit constipation (principal); R10.13 Epigastric pain
CPT/HCPCS: 99213

== ENCOUNTER 2024-12-24 14:56 | Outpatient (AMB) | payer MEDICAID, SELFPAY ==
[2024-12-24 15:03] VITALS: BP 116/70; PULSE 87; O2SAT 96; BMI 30.1
--- NOTE | 2024-12-24 15:03 | MHC.OFFVIS ---
Vital Signs 12/24/24 15:03 Height 5 ft Weight 154 lb 1.65 oz BMI 30.1 BP 116/70 Blood Pressure Location Rt brachial Position Sitting Pulse 87 Pulse Source Pulse Oximeter Pulse Oximetry (%) 96 Oxygen Delivery Method Room Air Intake Visit Reasons: Thyroid nodule Intake Note: Patient present today for Thyroid nodule. Estate And Trust Tax Principal Required: Yes Estate And Trust Tax Principal Language: Retail Analyst Services: Estate And Trust Tax Principal Present Estate And Trust Tax Principal Name: Jerrod [id number] Information Interpreted: non-clinical & clinical Accompanied by: Self / Same As Patient Allergies No Known Allergies Allergy (Verified 12/24/24 15:07) Medication List - Last Reconciled 12/24/24 by Sari Sapp MD bisacodyl (Dulcolax (bisacodyl)) 10 mg (2 x 5 mg) PO BEDTIME cholecalciferol (vitamin D3) 125 mcg PO DAILY pantoprazole 20 mg PO DAILY polyethylene glycol 3350 (Miralax) 238 grams PO ONCE HPI Comments Details: 44-year-old female coming in today for 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 Diagnosed with thyroid nodules somewhere around 2013, was following with endo in [place] doesn remember where. Had FNA biopsy some 7 years ago in 2018 , per patient result was benign. And then she was lost to follow up . I dont have these records. Ultrasound thyroid done 04/25/2024 I reviewed the images myself which showed a right midpole 2.9 cm solid, hyperechoic nodule TR 3 category. 11/02/2024: FNA biopsy of the nodule was nondiagnostic, [place] category 1. Patient currently denies heat or cold intolerance, hair loss, , anxiety, weight changes, mood changes, changes in appearance of eyes or vision changes, tremors, increased diaphoresis or dry skin. ? Reports constipation, now better. reports intermittent palpitations and low energy Reports intermittent difficulty swallowing. Think voice is thicker. Patient denies pain on swallowing or difficulty breathing. Patient denies any history of childhood neck radiation. Denies having ever used lithium, amiodarone or biotin supplements. Patient denies any family history of thyroid cancer. 2 sisters and daughter have hypothyroidism. Physical exam General: sitting comfortably in no acute distress HEENT: normocephalic/atraumatic Neck: supple, palpable 1 cm right-sided nodule Cardiac: Regular Pulm: Normal pulmonary effort Abd: not distended, Laboratory Tests 10/20/24 08:22 TSH 1.75 US THYROID 04/25/24 CLINICAL INFORMATION: History of thyroid nodules. COMPARISON: None available. TECHNIQUE: Linear transducer grayscale and color Doppler examination with attention to the region of the thyroid. FINDINGS: SIZE: Measurements of the thyroid lobes and nodules are given in sagittal, anteroposterior and transverse dimensions respectively. Right Thyroid Lobe: 5.3 x 2.2 x 2.1 cm, volume 13.0 mL. Parenchyma: The gland echotexture is homogeneous. Thyroid vascularity is normal. Left Thyroid Lobe: 3.6 x 1.6 x 1.4 cm, volume 4.3 mL. Parenchyma: The gland echotexture is homogeneous. Thyroid vascularity is normal. Isthmus: 0.3 cm in maximum AP dimension. Estimated total number of nodules greater than or equal to 1 cm: 1. Dance Therapist nodules are described as follows: 1. Location: Right mid. Size: 4.3 x 2.9 x 1.6 cm, volume 4.4 mL. Nodule characteristics: Composition: Solid/almost completely solid (2). Echogenicity: Hyperechoic (1). Shape: Not taller than wide (0). Margins: Ill-defined (0). Echogenic Foci: None (0). ACR TI-RADS total points: 3 ACR TI-RADS category: 3 NODES: No lymphadenopathy is seen in the tissue surrounding the thyroid gland. US/US thyroid IMPRESSION: A 2.9 cm right midpole TR 3 thyroid nodule meets criteria for biopsy. Fine-needle aspiration recommended. [facility] Medical History Constipation Family History Maternal Uncle Colon cancer Social History Alcohol intake: never Patient Tobacco Use Status: Never used Tobacco Physical Exam Vital Signs: Last Vital Signs Pulse 87 12/24/24 15:03 BP 116/70 12/24/24 15:03 Pulse Ox 96 12/24/24 15:03 Oxygen Delivery Method Room Air 12/24/24 15:03 BMI result Body Mass Index 30.1 Assessment & Plan Assessment & Plan (1) Multinodular goiter: Code(s): E04.2 - Nontoxic multinodular goiter Category: Medical Plan: 44-year-old female with no family history of thyroid cancer, with no personal history of head or neck radiation who is coming in today for 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 Diagnosed with thyroid nodules somewhere around 2013, was following with raj in [place] doesn remember where. Had FNA biopsy some 7 years ago in 2018 , per patient result was benign. And then she was lost to follow up . I dont have these records. Ultrasound thyroid done 04/25/2024 I reviewed the images myself which showed a right midpole 2.9 cm solid, hyperechoic nodule TR 3 category. 11/02/2024: FNA biopsy of the nodule was nondiagnostic, [place] category 1. No compressive symptoms, normal TSH from October 2024. I explained that it is common to have thyroid nodules. About 95% of the time these nodules are benign. However if the nodule is > 1 cm in size or suspicious on ultrasound then a fine need aspiration biopsy is recommended. We discussed that a FNAB involves 4-5 passes with a small gauge needle and material obtained is sent off for cytology.If the cytopathology is benign then the nodule will be followed annually with repeat ultrasounds. However if it is suspicious or malignant, we will need to discuss further management. Indeterminate cytology can be further investigated with repeat FNA, genetic testing or empiric lobectomy. Malignant cytology is managed with either lobectomy or total thyroidectomy. We discussed briefly that thyroid cancer is, in most patients, an indolent disease that does not affect mortality. At this time given nondiagnostic results of the biopsy, plan will be to repeat the biopsy in 3 months. I explained to the patient that there is a 60-80% chance of getting a diagnostic result on a 2nd try. Nondiagnostic results yield a 5-20% risk of malignancy. We will arrange for FNA of the right midpole 2.9 cm at next available opening and patient will follow up with me in clinic thereafter for results and further decision making. Plan: -scheduled for repeat FNA of the right midpole 2.9 cm nodule in 3 months and a follow up 2 weeks after to discuss results Plan I spent 45 minutes in reviewing the record, seeing the patient and documenting in the medical record. Orders: Orders US biopsy thyroid Today E04.2 - Nontoxic multinodular goiter Coding Level of Care Code New Pt Level 4 (94506) Diagnoses Multinodular goiter E04.2 Time Spent (min) 45
--- OUTSIDE RECORDS SUMMARY | 2024-12-24 17:10 | XMS_ITS | Clinical Summary ---
Author Organization [employer] Address [address] [facility] [address] [place] [address] Care Team Providers Care Second Hand Paper Machine Name Role Phone Name, Arden WALDROP Primary Care Provider [phone] Allergies No known active allergies Medications ketotifen [...] Encounters Date Type Department Care Team Description 12/10/2024 Orders Only [facility] External Provider, [facility] 11/11/[address] [facility] [address] [place] [address] Name, MD Arden Thyroid nodule (Primary Dx) 11/10/[address] [facility] [address] [place] [address] Corie Fleming 11/10/2024 Population Health Risk Score [facility] Department [address] [phone] Provider, Population Health Generic 10/17/2024 3:15 PM EDT Office Visit [facility] [address] [place] [address] Name, MD Arden Thyroid nodule (Primary Dx) 10/17/2024 Travel from Last 3 Months Immunizations Immunization Administration [...] Description 02/04/2025 3:15 PM EDT Office Visit [facility] [address] [place] [address] Name, MD Arden [address] [place] [address] Health Maintenance Due Date Last Done Comments CT Colonography 1978 Colonoscopy 1978 Colorectal Cancer Screening 1978 FIT DNA/Cologuard 1978 FIT 1978 FOBT 1978 HIV Screening 1978 Sigmoidoscopy 1978 Disability Screening 1978 Alcohol/Substance Use Screening 1990 Family Planning (PISQ) 1993 Hepatitis C Screening 1996 Hepatitis B Vaccines (1 of 3 - 19+ 3-dose series) 1997 COVID-19 Vaccine ( - 2023-2 5 season) 2024 Influenza Vaccine (Season Ended) 2025 04/27/2016 Depression Screening 04/10/2025 04/10/2024, 04/10/2024 SDOH [...] Procedure Name Priority Date/Time Associated Diagnosis Comments FL UPPER GI W AIR W BARIUM SWALLOW Routine 12/10/2024 9:[address] SOFT TISSUE NECK W CONTRAST Routine 11/10/2024 5:58 PM EDT BASIC METABOLIC PANEL Routine 11/10/2024 4:07 PM EDT HCG, TOTAL, QN Routine 11/10/2024 2:13 PM EDT CBC WITH AUTO DIFFERENTIAL Routine 11/10/2024 2:13 PM EDT CYTOPATH-CELL ENHANCED Routine 11:10 AM EDT US GUIDED THYROID BIOPSY Routine 11/10/2024 10:35 AM EDT Thyroid nodule BASIC METABOLIC PANEL Routine 10/20/2024 8:22 AM EDT Thyroid nodule CBC WITH AUTO DIFFERENTIAL Routine 10/20/2024 8:22 AM EDT Thyroid nodule TSH W/REFLEX TO FT4 Routine 10/20/2024 8 :22 AM EDT Thyroid nodule PAP SMEAR Routine 05/26/2024 4:43 PM EST [...] Recently Relevant to Health Maintenance Results * FL Upper GI w/air w/Barium Swallow (12/10/2024 9:33 AM EDT) Anatomical Region Laterality Modality Body Radiographic Janae ging 12/10/2024 9:33 AM EDT Narrative 12/10/2024 11:35 AM EDT ? [facility] ?[address] ?[place] [address] ? Fluoroscopy Report ? Signed ? Patient: Madi,Ara ?MR#: [id number] ?? [id number] ? : 1980 ?Acct:[id number] ? Age/Sex: 44 / F ?ADM Date: 12/10/24 ? Loc: HO.XRAY ? Attending Dr: Amy MOORE ? Ordering Physician: Amy Palafox ?? Date of Service: 12/10/24 ?? Procedure(s): FL upper GI w air w Ba Swallow ?? Accession Number(s): [id number] ? cc: Ellyn Ruiz MD; Amy Palafox ? EXAMINATION: ?? XR UPPER GI SERIES WITH SMALL BOWEL ? CLINICAL INFORMATION: ?? Gastroesophageal reflux disease without esophagitis. ? COMPARISON: ?? None available. ? TECHNIQUE: ?? Patient is unable to tolerate thick barium. Hence a single contrast ?? upper GI exam was performed. ? FINDINGS: ?? Following oral administration of thin barium there is normal ?? propagation of bolus from the oral cavity through the pharynx, ?? esophagus into stomach without any evidence of obstruction, narrowing ?? or stricture. ? On placing patient in supine and prone lying the course, caliber and ?? peristalsis of the stomach, duodenal bulb and this CT is normal. The ?? mucosal pattern of the stomach, duodenal bulb and this CT is normal. ?? Incidental finding of a mild gastroesophageal reflux was seen without ?? hiatal hernia. ? FLUOROSCOPY TIME: ?? 1 minute 47 seconds ? DOSE AREA PRODUCT: ?? 1515 uGy-m2 (microgray-meter squared) ? FL/FL upper GI w air w Ba Swallow ?? IMPRESSION: ?? Mild gastroesophageal reflux without hiatal hernia. Otherwise rest of ?? the upper GI exam is unremarkable. ? Electronically signed by: ??Bubba Betsy MD ??12/10/2024 11:32 AM EDT RP ? Dictated By: ?Betsy,Bubba S MD ? Signed By: ?<Electronically signed by Bubba S Betsy, MD in OV> ?12/10/24 1132 ? DD/ 0933 ? TD/TT: 12/10/24 0941 ? Fastener Sewing Machine Operator: MSM ? Procedure Note Donotuseinterpreter, Image - 12/10/2024 [place] [address] Fluoroscopy Report Signed Patient: Ara BarrazaMR#: [id number] : 1980Acct:[id number] Age/Sex: 44 / FADM Date: 12/10/24 Loc: [facility] Attending Dr: Amy Palafox [facility] Ordering Physician: Amy Palafox Date of Service: 12/10/24 Procedure(s): FL upper GI w air w Ba Swallow Accession Number(s): [id number] cc: Ellyn Ruiz MD; Amy Palafox [facility] EXAMINATION: XR UPPER GI SERIES WITH SMALL BOWEL CLINICAL INFORMATION: Gastroesophageal reflux disease without esophagitis. COMPARISON: None available. TECHNIQUE: Patient is unable to tolerate thick barium. Hence a single contrast upper GI exam was performed. FINDINGS: Following oral administration of thin barium there is normal propagation of bolus from the oral cavity through the pharynx, esophagus into stomach without any evidence of obstruction, narrowing or stricture. On placing patient in supine and prone lying the course, caliber and peristalsis of the stomach, duodenal bulb and this CT is normal. The mucosal pattern of the stomach, duodenal bulb and this CT is normal. Incidental finding of a mild gastroesophageal reflux was seen without hiatal hernia. FLUOROSCOPY TIME: 1 minute 47 seconds DOSE AREA PRODUCT: 1515 uGy-m2 (microgray-meter squared) FL/FL upper GI w air w Ba Swallow IMPRESSION: Mild gastroesophageal reflux without hiatal hernia. Otherwise rest of the upper GI exam is unremarkable. Electronically signed by: Bubba Meyer MD 12/10/2024 11:32 AM EDT Dictated By: Bubba Meyer MD Signed By: <Electronically signed by Bubba Meyer MD in OV> 12/10/24 1132 DD/ 0933 TD/TT: 12/10/24 0941 Fastener Sewing Machine Operator: MARLENE [facility] External Provider IMG FLU OROSCOPY PROCEDURES Final Result * CT Soft Tissue Neck w/ Contrast (11/10/2024 5:58 PM EDT) Anatomical Region Laterality Modality Head, Neck Computed Tomogra phy 11/10/2024 5:58 PM EDT Narrative 11/10/2024 5:59 PM EDT ? [facility] ?[address] ?[place] [address] ? [address] Scan Report ? Signed ? Patient: Ara Barraza ?MR#: [id number] ?? [id number] ? : 1980 ?Acct:[id number] ? Age/Sex: 44 / F ?ADM Date: 11/10/24 ? Loc: HO.ED ? Attending Dr: ? Ordering Physician: Le Haskins MD ?? Date of Service: 11/10/24 ?? Procedure(s): CT soft tissue neck w IV con ?? Accession Number(s): [id number] ? cc: Ellyn Ruiz MD; Le Haskins MD ? Report Number: ?? [id number]: Total DLP = ??460.00 mGy-cm ? CLINICAL [...] MD in OV> ? 11/10/241757 ? DD/ 57 ? TD/TT: 11/10/241757 ? Fastener Sewing Machine Operator: ? Procedure Note Donotmaryter, Image - 11/10/[address] [place] [address] [address] Scan Report Signed Patient: Ara BarrazaMR#: [id number] : 1980Acct:[id number] Age/Sex: 44 / FADM Date: 11/10/24 Loc: HO.ED Attending Dr: Ordering Physician: Le Haskins MD Date of Service: 11/10/24 Procedure(s): CT soft tissue neck w IV con Accession Number(s): [id number] cc: Ellyn Ruiz MD; Le Haskins MD Report Number: [id number]: Total DLP = 460.00 mGy-cm CLINICAL HISTORY: [...] in OV> 11/10/241757 DD/ 57 TD/TT: 11/10/241757 Fastener Sewing Machine Operator: [facility] External Provider IMG CT PROCEDURES Final Result * (ABNORMAL) Basic Metabolic Panel (11/10/2024 4:07 PM EDT) Only the most recent of2 resultswithin the time period is included. Sodium 141 135 - 145 mmol/L [facility] Potassium 4.0 3.3 - 5.1 mmol/L [facility] Chloride 105 96 - 108 mmol/L [facility] Carbon Dioxide 25 22 - 29 mmol/L [facility] Anion Gap 15 12 - 20 [facility] Urea Nitrogen (BUN) 10 9 - 16 mg/dL [facility] Creatinine, Serum 0.74 0.5 - 1.4 mg/dL [facility] Creatinine Clr Calc Pharmacy 81.4 [facility] Comment:Provided height and weight: 152.4 cm,67.585 kg.eGFR (calculated from the MDRD study equation) and eCrCl(calculated from the Cockcroft-Gault equation) are based ondifferent parameters and may not yield comparable results.If eCrCl result is absurd, please check patient'sheight/weight. Estimated Glomerular Filt Rate >60 [facility] Comment:Chronic Kidney Disea se: Estimated GFR < 60 mL/min/1.36d0Aekqkw Kidney Disease: Estimated GFR < 15 mL/min/1.73m2 Glucose 136(H) 60 - 115 mg/dL [facility] Calcium 9.5 8.4 - 10.2 mg/dL [facility] 11/10/2024 4:07 PM EDT 11/10/2024 4:13 PM EDT us Generic External Data Provider LAB BLOOD ORDERAB LES Final Result [facility] [address] [place], [place] [phone] * (ABNORMAL) CBC auto differential (11/10/2024 2:13 PM EDT) Only the most recent of2 resultswithin the time period is included. White Blood Count 12.2(H) 4.8 - 10.8 X10*3/uL [facility] Red Blood Count 4.64 4.20 - 5.50 X10*6/uL [facility] Hemoglobin 13.6 12.0 - 16.0 g/dl [facility] Hematocrit 40.4 37.0 - 47.0 % [facility] Mean Corpuscular Volume 87.1 80.0 - 98.0 fL [facility] Mean Corpuscular Hemoglobin 29.3 27.0 - 33.0 pg [facility] Mean Corpuscular HGB Conc 33.7 31.0 - 35.0 g/dl [facility] Red Cell Distribution Width 12.5 11.0 - 16.0 % [facility] Platelet Count 268 160 - 400 X10*3/uL [facility] Mean Platelet Volume 11.0 9.4 - 12.3 fL [facility] Neutrophils Percent Auto 84.3(H) 45 - 73 % [facility] Imm Gran Pct Auto 0.2 0.0 - 0.4 % [facility] Lymphocytes Percent Auto 10.6(L) 20 - 40 % [facility] Monocytes Percent Auto 4.2 2 - 11 % [facility] Eosinophils Percent Auto 0.2 0 - 4 % [facility] Basophils Percent Auto 0.5 0 - 2 % [facility] NRBC Pct Auto 0.0 0.0 - 0.2 /100WBC [facility] Neutrophils Absolute Auto 10.2(H) 2.0 - 8.3 x10*3/uL [facility] Imm Gran Abs Auto 0.03 0.00 - 0.03 X10*3/uL [facility] Lymphocytes Absolute Auto 1.3 1.2 - 4.9 X10*3/uL [facility] Monocytes Absolute Auto 0.5 0.1 - 1.2 X10*3/uL [facility] Eosinophils Absolute Auto 0.0 0.0 - 0.4 X10*3/uL [facility] Basophils Absolute Auto 0.1 0.0 - 0.2 X10*3/uL [facility] NRBC Abs Auto 0.000 0.0 - 0.012 X10*3/uL [facility] 11/10/2024 2:13 PM EDT 11/10/2024 2:16 PM EDT Generic External Data Provider LAB BLOOD ORDERAB LES Final Result Performing Organization Address [facility] de Phone Number [facility] [address] [place] [address] [phone] * hCG, Total, Quantitative (11/10/2024 2:13 PM EDT) HCG Quantitative <2 mIU/mL [facility] Comment:Weeks post LMP Appro ximate hCG(Last Menstrual Period) Range (mIU/ml)3 - 4 weeks 9 - 1304 - 5 weeks 75 - 2,6005 - 6 weeks 850 - 20,8006 - 7 weeks 4000 - 100,2007 - 12 weeks 11,500 - 289,12030 - 16 weeks 18,300 - 137,81009 - 29 weeks (2nd trimester) 1,400 - 53,30031 - 41 weeks (3rd trimester) 940 - [...] ORDERAB LES Final Result Performing Organization Address [facility] Co de Phone Number [facility] [address] [place] [address] [phone] * Cytopath-cell enhanced (11/10/2024 11:10 AM EDT) 11/10/2024 11:1 0 AM EDT 11/10/2024 11:38 AM EDT Narrative [facility] - 11/11/2024 7:59 AM EDT ----- ------- Name: Ara Barraza ?Age/Sex: 44/F ? : 1980 Unit#: [id number] ?? Attend Dr: Arden Mcpherson MD ?Re11/10/24 ?Status: DEP REF ? Location: HO.US ? Disch: ? ----- ------- SPEC : [id number] ? RECD: 11/10/24-1137 ? STATUS: ??SOUT ? REQ NUM: [id number] ? MARIAN: 11/10/24-1110 ? SUBM DR: Bubba Meyer MD ? ENTERED: ??11/10/24-1211 ?SP TYPE: Cytology ? OTHR DR: Arden Mcpherson MD ? ORDERED: ??Cyto-enhanced ? Diagnosis ?? Thyroid, right nodule, fine needle aspiration: ??Non-diagnostic (Denison category I). ? COMMENT: ??Rare groups of follicular epithelial cells in a macrofollicular arrangement are ?? present, too few for diagnostic purposes. ??Colloid is present as well as pigment laden ?? macrophages and blood. ?Clinical History Nodule, had biopsy 5 years ago at [facility], results unknown ? Material Received ?? Right thyroid nodule ? Gross Description Received are 28 cc of very light bloody tinged CytoLyt fluid from which a ThinPrep slide is prepared. ??A Copies To: ?? Bubba Meyer MD ?? [address] [place] [address] ?? [place] [address] ?? [phone] ?? Name,Arden WALDROP ?? [address] ?? [place] [address] ?? [phone] ----- ------- Signed (signature on file) Skip Sorensen MD 11/11/24 0759 ? ----- ------- ? END OF REPORT ? us Generic External Data Provider LAB CYTOLOGY LINDA SHOOK Final Result [facility] [address] [place] [address] [phone] * US Guided Thyroid Biopsy (11/10/2024 10:35 AM EDT) Anatomical Region Laterality Modality Head, Neck Ultrasound 11/10/2024 10:3 5 AM EDT Narrative 11/11/2024 2:10 PM EDT ? [facility] ?[address] ?[place] [address] ? Ultrasound Report ? Signed ? Patient: Ara Barraza ?MR#: [id number] ?? [id number] ? : 1980 ?Acct:[id number] ? Age/Sex: 44 / F ?ADM Date: 11/10/24 ? Loc: HO.US ? Attending Dr: Arden Mcpherson MD ? Ordering Physician: Arden Mcpherson MD ?? Date of Service: 11/10/24 ?? Procedure(s): US biopsy thyroid ?? Accession Number(s): [id number] ? cc: Arden Mcpherson MD ? EXAMINATION: [...] DD/ 1035 ? TD/TT: 11/10/24 1046 ? Fastener Sewing Machine Operator: MSM ? Procedure Note Sadie Posadas - 11/11/2024 [place] [address] Ultrasound Report Signed Patient: Kay Barraza#: [id number] : 1980Acct:[id number] Age/Sex: 44 / FADM Date: 11/10/24 Loc: HO.US Attending Dr: Arden Mcpherson MD Ordering Physician: Arden Mcpherson MD Date of Service: 11/10/24 Procedure(s): US biopsy thyroid Accession Number(s): [id number] cc: Arden Mcpherson MD EXAMINATION: Ultrasound-guided right [...] 11/11/24 1408 DD/ 1035 TD/TT: 11/10/24 1046 Fastener Sewing Machine Operator: MARLENE us Arden Mcpherson MD IMG US PROCEDURES Final Result * TSH W/Reflex to FT4 (10/20/2024 8:22 AM EDT) TSH reflex Free T4 1.75 0.32 - 4.0 uIU/mL [facility] Blood Venous blood specimen / Unknown 10/20/2024 8:22 AM EDT 10/20/2024 11:07 AM EDT us Arden Mcpherson MD LAB BLOOD ORDERABLES Final Resul t [facility] [address] [place] [phone] [phone] * Pap Smear (05/26/2024 4:43 PM EST) Swab 05/26/2024 4:43 PM EST 05/27/2024 9:00 AM EST Narrative [facility] - 05/29/2024 8:49 AM EST ----- ------- Name: Felisa Barraza ? Age/Sex: 44/F ? : 1980 Unit#: [id number] ?? Attend Dr: ?Re05/26/24 ?Status: PRE REF ? Location: HO.LNP ?Disch: ? ----- ------- SPEC : [id number] ?RECD: 05/27/24-899 ? STATUS: ??SOUT ? REQ NUM: [id number] ? MARIAN: 05/26/24-1642 ? SUBM DR: Cheyanne Spann BUSINESS STRATEGY MANAGER ? ENTERED: ??05/27/24-1016 ?SP TYPE: Pap Smr ?OTHR : ? [...] END OF REPORT ? us Cheyanne Zana BUSINESS STRATEGY MANAGER LAB CYTOLOGY ORDERABLES Final Re sult Performing Organization Address [facility] de Phone Number [facility] [address] [place] [address] [phone] * HPV mRNA E6/E7 w/Reflex to HPV Genotypes 16, 18/45 (05/26/2024 12:00 AM EST) us Historical Provider MD LAB CYTOLOGY ORDERABLES F inal Result Performing Organization Address [facility] de Phone Number [facility] [address] [place] [address] [phone] * BI Mammogram Screening Tomosynthesis Bilateral (05/02/2024 3:25 PM EDT) Anatomical Region Laterality Modality Breast Bilateral Mammography 05/02/2024 3:25 PM EDT Narrative 05/14/2024 4:06 PM EDT ? [facility] ? [address] ?[place] [address] ? Mammography Report ? Signed ? Patient: Felisa Barraza ?MR#: [id number] ?? [id number] ? : 1980 ?Acct:[id number] ? Age/Sex: 44 / F ?ADM Date: 10/18/24 ? Loc: HO.MAMMO ? Attending Dr: Arden Name MD ? Ordering Physician: Name,Arden MD ?Results: 1Negative ? Date of Service: 05/02/24 ?Follow Up: 1 Year From Orig ?? inal Mammogram ? Procedure(s): MM tomosynthesis screening BI ?? Accession Number(s): [id number] ? cc: Name,Arden WALDROP ? EXAMINATION: ?? [...] DD/ 1525 ? TD/TT: 05/02/24 1530 ? Fastener Sewing Machine Operator: ? Procedure Note Cuauhtemoc, Image - 05/14/2024 [facility] [address] [place] [address] [place] [address] Mammography Report Signed Patient: Felisa BarrazaMR#: [id number] : 1980Acct:[id number] Age/Sex: 44 / FADM Date: 05/02/24 Loc: HO.MAMMO Attending Dr: Arden Mcpherson MD Ordering Physician: Arden Mcpherson MDResults: 1Negative Date of Service: 05/02/24Follow Up: 1 Year From Orig ina Mammogram Procedure(s): MM tomosynthesis screening BI Accession Number(s): [id number] cc: Name,Arden WALDROP EXAMINATION: MM SCREENING DIGITAL BREAST TOMOSYNTHESIS, BILATERAL [...] 05/14/24 1603 DD/ 1525 TD/TT: 05/02/24 1530 Fastener Sewing Machine Operator: Arden Mcpherson MD IM BI PROCEDURES Final Result * Lipid Panel, Standard (04/11/2024 8:07 AM EDT) Triglycerides 74 <150 mg/dL [facility] Comment:Desirable Triglyceri de: less than 150 mg/dLBorderline High Triglyceride 150-199 mg/dLHigh Triglyceride: 200-499 mg/dLVery High Triglyceride: greater than or equal to 5OO mg/dL Cholesterol 175 <200 mg/dL [facility] Comment:Desirable Cholestero l: less than 200 mg/dLBorderline High Cholesterol: 200-239 mg/dLHigh Cholesterol: greater than 239 mg/dL LDL Cholesterol Calculated 94 <100 mg/dL [facility] Comment:Desirable LDL: less than 100 mg/dLNear Optimal/Above Optimal LDL: 110- 129 mg/dLBorderline High LDL: 130-159 mg/dLHigh LDL: 160-189 mg/dLVery High LDL: greater than or equal to 190 mg/dL HDL Cholesterol 67 >40 mg/dL [facility] Comment:Desirable HDL: great er than 40 mg/dL Note: This HDL assay may give artificially low results in patients with liver disease. Blood Venous blood specimen / Unknown 04/11/2024 8:07 AM EDT 04/11/2024 11:38 AM EDT us Arden Name LAB BLOOD ORDERABLES Final Resul t [facility] [address] [place] [address] [phone] from Last 3 Months or Most Recently Relevant to Health Maintenance Insurance [facility] C[employer] [facility] [employer] Care Teams Second Hand Paper Machine Relationship Specialty Start Date End Date Name, MD Arden [address] [place] [phone] PCP - General Internal Medicine 04/10/24
== END 2024-12-24 15:50 | disposition home or self-care (01) ==
LOC: HO.ENCR 14:57
PROVIDERS: PCP Internal Medicine; Visit Provider Student in an Organized Health Care Education/Training Program
DX: E04.2 Nontoxic multinodular goiter (principal)
CPT/HCPCS: 99204

== ENCOUNTER → 2024-12-24 14:56 | Outpatient (BNVA) | payer MEDICAID, SELFPAY | PROVIDERS: PCP Internal Medicine; Visit Provider Student in an Organized Health Care Education/Training Program | DX: E04.2 Nontoxic multinodular goiter (principal) | CPT/HCPCS: 99202 ==

== ENCOUNTER 2025-03-04 09:30 | Outpatient (REF) | payer MEDICAID, SELFPAY ==
--- OUTSIDE RECORDS SUMMARY | 2025-03-04 10:15 | XMS_ITS | Clinical Summary ---
Author Organization [employer] Address [address] [facility] [address] [place] [address] Care Team Providers Care Sander Machine Name Role Phone Name, Arden WALDROP Primary Care Provider [phone] Allergies No known active allergies Medications ketotifen (Zaditor) 0.025 % ophthalmic solution Administer 1 drop into both eyes 2 times daily. 5 mL 4 Active Multiple Vitamin (Multivitamin Adult) tablet Take 1 tab orally daily 90 tablet 3 4 Active cholecalciferol (Vitamin D-3) 25 MCG (1000 [...] Department Care Team Description 12/10/2024 Orders Only [facility] External Provider, [facility] from Last 3 Months Immunizations Immunization Administration [...] 83 10/17/2024 2:54 PM EDT Temperature 36.8 C (98.3 F) 10/17/2024 2:54 PM EDT Respiratory Rate 14 10/17/2024 2:54 PM EDT Oxygen Saturation 98% 10/17/2024 2: 54 PM EDT Inhaled Oxygen Concentration - - Weight 67.9 kg (149 lb 12.8 oz) 10/17/2024 2:54 PM EDT Height 152.4 cm (5') 10/17/2024 2:54 PM EDT Body Mass Index 29.26 10/17/2024 2:54 PM EDT Plan of Treatment Health Maintenance Due Date Last Done Comments CT Colonography 1978 Colonoscopy 1978 Colorectal Cancer Screening 1978 FIT DNA/Cologuard 1978 FIT 1978 FOBT 1978 Sigmoidoscopy 1978 Disability Screening 1978 Alcohol/Substance Use Screening 1990 Family Planning (PISQ) 1993 Hepatitis C Screening 1996 Hepatitis B Vaccines (1 of 3 - 19+ 3-dose series) 1997 COVID-19 Vaccine (2023-2 5 season) 2024 Influenza Vaccine (#1) 2025 04/27/2016 Depression Screening 04/10/2025 04/10/2024, 04/10/2024 [...] older (1 - 1-dose 75+ series) 2053 HIV Screening Completed 12/06/2018 HIB Vaccines Aged Out No longer eligi [...] Years) and At-Risk Patients (6 to 49) Years Aged Out No longer eligible b ased [...] BARIUM SWALLOW Routine 12/10/2024 9:33 AM EDT PAP SMEAR Routine 05/26/2024 4:43 [...] AM EDT Narrative 12/10/2024 11:35 AM EDT [address] [address] Fluoroscopy Report Signed Patient: Ara Barraza MR#: [id number] : 1980 Acct:[id number] Age/Sex: 44 / F ADM Date: 12/10/24 Loc: HO.XRAY Attending Dr: Amy Palafox [facility] Ordering Physician: Amy Palafox Date of Service: 12/10/24 Procedure(s): FL upper GI w air w Ba Swallow Accession Number(s): [id number] cc: Ellyn Ruiz MD; Amy Palafox [facility] EXAMINATION: XR UPPER GI SERIES WITH SMALL [...] 12/10/24 1132 DD/ 0933 TD/TT: 12/10/24 0941 Poker In: MARLENE Procedure Note Donotuseinterpreter, Image - 12/10/[address] [address] Fluoroscopy Report Signed Patient: Ara BarrazaMR#: [id number] : 1980Acct:[id number] Age/Sex: 44 / FADM Date: 12/10/24 Loc: HO.XRAY Attending Dr: Amy Palafox [facility] Ordering Physician: Amy Palafox GREY PERCHERPIOTR Date of Service: 12/10/24 Procedure(s): FL upper GI w air w Ba Swallow Accession Number(s): [id number] cc: Ellyn Ruiz MD; Amy Palafox [facility] EXAMINATION: XR UPPER GI SERIES WITH SMALL [...] 12/10/24 1132 DD/ 0933 TD/TT: 12/10/24 0941 Poker In: MARLENE [employer] External Provider IMG FLU OROSCOPY PROCEDURES Final Result * Pap Smear (05/26/2024 4:43 PM EST) Swab 05/26/2024 4:43 PM EST 05/27/2024 9:00 AM EST [facility] - 05/29/2024 8:49 AM EST ----- ------- Name: Felisa Barraza Age/Sex: 44/F : 1980 Unit#: [id number] Attend Dr: Re05/26/24 Status: PRE REF Location: [facility] Disch: ----- ------- SPEC : [id number] RECD: 05/27/24 STATUS: GUILLERMO SAVAGE NUM: [id number] MARIAN: 05/26/[address] [facility] [address]: Cheyanne Spann FIELD TECHNICAL SPECIALIST ENTERED: 05/27/24 SP TYPE: Pap Smr MARTHA DR: ORDERED: Pap Smear Interpretation Satisfactory for evaluation. Negative for intraepithelial lesion or malignancy. HPV High Risk: Negative HPV Genotyping 16: Negative HPV Genotyping 18: Negative Clinical Information LMP: 05/12/2024 Previous PAP test: Unknown date, WN Material Received ThinPrep-Cervical ----- ------- Signed (signature on file) CHICO Bob (ASCP) 05/29/24 0849 ----- ------- END OF REPORT us Cheyanne Spann FIELD TECHNICAL SPECIALIST LAB CYTOLOGY ORDERABLES Final Re sult Performing Organization Address [facility] Co de Phone Number [facility] [address] [place] [phone] * HPV mRNA E6/E7 w/Reflex to HPV Genotypes 16, 18/45 (05/26/2024 12:00 AM EST) Historical Provider MD LAB CYTOLOGY ORDERABLES F inal Result Performing Organization Address [facility] de Phone Number [facility] [address] [place] [phone] * BI Mammogram Screening Tomosynthesis Bilateral (05/02/2024 3:25 PM EDT) Anatomical Region Laterality Modality Breast Bilateral Mammography 05/02/2024 3:25 PM EDT Narrative 05/14/2024 4:06 PM EDT [facility] [address] [place] [address] Mammography Report Signed Patient: Felisa Barraza MR#: [id number] : 1980 Acct:[id number] Age/Sex: 44 / F ADM Date: 05/02/24 Loc: LUISA Attending Dr: Arden Mcpherson MD Ordering Physician: Arden Mcpherson MD Results: 1Negative Date of Service: 05/02/24 Follow Up: 1 Year From Orig inal Mammogram Procedure(s): MM tomosynthesis screening BI Accession Number(s): [id number] cc: Arden Mcpherson MD EXAMINATION: MM SCREENING [...] 05/14/24 1603 DD/ 1525 TD/TT: 05/02/24 1530 Poker In: Procedure Note Donotuseinterpreter, Image - 05/14/20[facility] [address] [place] [address] Mammography Report Signed Patient: Felisa BarrazaMR#: [id number] : 1980Acct:[id number] Age/Sex: 44 / FADM Date: 05/02/24 Loc: HO.MAMMO Attending Dr: Arden Mcpherson MD Ordering Physician: Arden Mcpherson MDResults: 1Negative Date of Service: 05/02/24Follow Up: 1 Year From Orig inal Mammogram Procedure(s): MM tomosynthesis screening BI Accession Number(s): [id number] cc: Arden Mcpherson MD EXAMINATION: MM SCREENING [...] 05/14/24 1603 DD/ 1525 TD/TT: 05/02/24 1530 Poker In: us Arden Name MD RODRIGUEZ BI PROCEDURES Final Result * Lipid Panel, Standard (04/11/2024 8:07 AM EDT) Triglycerides 74 <150 mg/dL [facility] Comment:Desirable Triglyceri de: less than 150 mg/dLBorderline High Triglyceride 150-199 mg/dLHigh Triglyceride: 200-499 mg/dLVery High Triglyceride: greater than or equal to 5OO mg/dL Cholesterol 175 <200 mg/dL [facility] Comment:Desirable Cholestero l: less than 200 mg/dLBorderline High Cholesterol: 200-239 mg/dLHigh Cholesterol: greater than 239 mg/dL LDL Cholesterol Calculated 94 <100 mg/dL [facility] Comment:Desirable LDL: less than 100 mg/dLNear Optimal/Above Optimal LDL: 110- 129 mg/dLBorderline High LDL: 130-159 mg/dLHigh LDL: 160-189 mg/dLVery High LDL: greater than or equal to 190 mg/dL HDL Cholesterol 67 >40 mg/dL [facility] Comment:Desirable HDL: great er than 40 mg/dL Note: This HDL assay may give artificially low results in patients with liver disease. Blood Venous blood specimen / Unknown 04/11/2024 8:07 AM EDT 04/11/2024 11:38 AM EDT us Arden Name LAB BLOOD ORDERABLES Final Resul t [facility] [address] [place] [address] [phone] from Last 3 Months or Most Recently Relevant to Health Maintenance Insurance [employer] Care Teams Sander Machine Relationship Specialty Start Date End Date Name, MD Arden [address] [place] [address] PCP - General Internal Medicine 04/10/24
--- OUTSIDE RECORDS SUMMARY | 2025-03-04 10:15 | XMS_ITS | Clinical Summary ---
Author Organization [facility] Address [address] [place] [address] Care Team Providers Care Engineering Design Manager Name Role Phone Lily Lee PA-C Primary [...] TDAP 08/25/2015 Td (adult), 5 Lf tetanus tox oid (Teniva), preservative free 11/19/2015 Family History Medical History Relation Name [...] 66 06/20/2022 11:05 AM EST Temperature 36.8 C (98.3 F) 06/20/2022 11:05 AM EST Respiratory Rate 20 06/20/2022 11:05 AM EST [...] , 10/06/2021, 06/27/2021, Additional history exists Annual Wellness (Adult): Indicated (All Coverage) 10/06/2022 10/06/2021, 12/16/2018, 11/01/2016, Additional history exists Anxiety Screening 10/06/2022 10/06/2021 Relationship Safety Screening/Counseling 02/13/2023 02/13/2022, 10/06/2021, 06/27/2021, Additional history exists CT Colonography 2023 Colonoscopy 2023 Colorectal Cancer Screening 2023 FIT/gFOBT 2023 Fecal DNA 2023 Flexible Sigmoidoscopy 2023 Hypertension Screening (#1) 06/20/2023 TSH Monitoring 06/28/2023 06/28/2022, 03/2 03/2022, 06/29/2021, Additional history exists [id number] ( season) 2024 Alcohol and Drug Screen 07/16/2024 02/14/20 22, 10/06/2021, 10/22/2020, Additional history exists Imm-Influenza (#1) 2025 04/27/2016 Diabetes Screening 06/28/2025 06/28/2022, 0 10/11/2021, 06/29/2021, [...] EST) TSH 1.36 0.40 - 4.50 mIU/L [facility] Comment: Reference Range > or = 20 Years 0.40-4.50 Ranges First trimester 0.26-2.66 Second trimester 0.55-2.73 Third trimester 0.43-2.91 Blood Blood / Unknown 06/28/2022 9 :13 AM EST 06/28/2022 9:13 AM EST us Lily Lee PA-C LAB - BLOOD DRAW Edited Resu lt - Final [facility] [address] [address], [facility] [address] [facility] ([address]) [place] [address] * (ABNORMAL) LIPID PANEL (06/28/2022 9:13 AM EST) [facility] Signature CHOLESTEROL, TOTAL 181 <200 mg/dL [facility] HDL CHOLESTEROL 50 > OR = 50 mg/dL [facility] TRIGLYCERIDES 113 <150 mg/dL [facility] LDL-CHOLESTEROL 109(H) 99 mg/dL (calc) [facility] Comment: Reference range: <100 Desirable range <100 mg/dL for primary prevention; <70 mg/dL for patients with CHD or diabetic patients with > or = 2 CHD risk factors. LDL-C is now calculated using the Danilo calculation, which is a validated novel method providing better accuracy than the Friedewald equation in the estimation of LDL-C. Bill ROSS et al. FATIMAH. 2013;310(19): 8786-3933 (http://education.[employer]/faq/YTS955) CHOL/HDLC RATIO 3.6 <5.0 (calc) [facility] NON-HDL CHOLESTEROL 131(H) <130 mg/dL (calc) [facility] Comment: For patients with diabetes plus 1 major ASCVD risk factor, treating to a non-HDL-C goal of <100 mg/dL (LDL-C of <70 mg/dL) is considered a therapeutic option. Blood Blood / Unknown 06/28/2022 9 :13 AM EST 06/28/2022 9:13 AM EST us Lily Lee PA-C LAB - BLOOD DRAW Final Resul t Performing Organization Address [facility]/ZIP Co de Phone Number [facility] [address] [address], [facility] [address] [facility] ([address]) [place] [address] * COMPRE METAB PANEL (06/28/2022 9:13 AM EST) GLUCOSE 89 65 - 99 mg/dL [facility] Comment: Fasting reference interval UREA NITROGEN (BUN) 13 7 - 25 mg/dL [facility] CREATININE (blood) 0.70 0.50 - 0.99 mg/dL [facility] EGFR 109 > OR = 60 mL/min/1 .73m2 [facility] Comment: The eGFR is based on the CKD-EPI 2020 equation. To calculate the new eGFR from a previous Creatinine or Cystatin C result, go to https://www.kidney.org/professionals/ kdoqi/gfr%5Fcalculator BUN/CREATININE RATIO NOT APPLICABLE 6 - [facility] SODIUM 140 135 - 146 mmol/L [facility] POTASSIUM 4.1 3.5 - 5.3 mmol/L [facility] CHLORIDE 102 98 - 110 mmol/L [facility] CARBON DIOXIDE 28 20 - 32 mmol/L [facility] CALCIUM 9.8 8.6 - 10.2 mg/dL [facility] PROTEIN, TOTAL 7.2 6.1 - 8.1 g/dL [facility] ALBUMIN 4.3 3.6 - 5.1 g/dL [facility] GLOBULIN 2.9 1.9 - 3.7 g/dL (calc) [facility] ALBUMIN/GLOBUL IN RATIO 1.5 1.0 - 2.5 (calc) [facility] BILIRUBIN, TOTAL 0.3 0.2 - 1.2 mg/dL [facility] ALKALINE PHOSPHATASE 49 31 - 125 U/L [facility] AST 20 10 - 30 U/L [facility] ALT 21 6 - 29 U/L [facility] Blood Blood / Unknown 06/28/2022 9 :13 AM EST 06/28/2022 9:13 AM EST us Lily Lee PA-C LAB - BLOOD DRAW Edited Resu lt - Final [facility] [address] [facility] [address] [place] [address], [facility] [address] [facility] ([address]) [place] [address] * HIV-1 & HIV-2 ANTIBODIES (12/06/2018 10:29 AM EDT) HIV 1 AND 2 ANTIBODY SCREEN NEGATIVE NEGATIVE [facility] Comment: This assay is a 4th generation assay allowing for earlier detection of HIV infection by detecting the presence of the HIV-1 p24 antigen as well as the traditional antibodies to HIV type 1 (including group O) and type 2. Use of a 4th generation assay is the current CDC recommendation for HIV screening. Blood specimen (specimen) Blood / Unknown 12/06/2018 10:29 AM EDT 12/06/2018 1:23 PM EDT Narrative [facility] - 12/06/2018 7:32 PM EDT [employer], [place] [address] Facility Manager - Dianna Trejo MD PT ID [id number] ORD# [id number] Arac[facility] L[facility] LAB - BLOOD DRAW Final Resu lt [address] [address], from Last 3 Months or Most Recently Relevant to Health Maintenance [facility] Care Teams Engineering Design Manager Relationship Specialty Start Date End Date Lily Lee PA-C [address] [place] [address] PCP - General FAMILY MEDICINEJESSICA 06/15/21
--- NOTE | 2025-03-04 10:24 | PM.PROC ---
Brief Operative Note Date of procedure: 03/04/25 Pre-op diagnosis: right mid pole 2.9 cm thyroid nodule Post-op diagnosis: same Procedure: THYROID FINE NEEDLE ASPIRATION PROCEDURE NOTE ? PROCEDURE PERFORMED: Ultrasound-guided FNA of thyroid nodule ? OPERATORS: Dr. Sari Sapp ? INDICATION: right mid pole 2.9 cm thyroid nodule ; FNA performed to assess for malignancy ? DESCRIPTION OF PROCEDURE: The indications for FNA (to assess for malignancy) were reviewed with the patient in detail. Potential complications (e.g., bleeding, infection, damage to local structures, absence of clear diagnosis after FNA) were reviewed. Alternatives to FNA including conservative observation or surgery were described. The patient understood and agreed to proceed. This was documented by the signing of the written informed consent form. A time-out was performed to confirm the patient's identity and the site of planned FNA. The nodule of interest was identified using ultrasound (14 MHz linear array probe). The site of FNA was then draped in the usual fashion and carefully cleaned and prepared using alcohol swabs. The skin at the previously-identified site of needle insertion was iced and sprayed with numbing spray. Under ultrasound guidance, 5_ passes were performed using a 1.5-inch, 25-gauge needle, and sample was obtained via capillary action. The needle tip was clearly visualized to be within the nodule at the time of sampling for _5_ of 5_ passes. The patient tolerated the procedure well. There were no immediate complications. A small adhesive bandage was applied, and the patient was advised to take acetaminophen (rather than NSAIDs) for any discomfort and to report any signs of inflammation/infection or marked swelling. IMPRESSION: Technically successful ultrasound-guided fine needle aspiration of right mid pole 2.9 cm thyroid nodule . PLAN: The patient was advised that I will provide follow-up regarding the cytology result and any subsequent plans. Sari Sapp MD Endocrinology Attending Condition: stable Disposition: same day
== END 2025-03-04 09:31 | disposition home or self-care (01) ==
LOC: HO.US 09:30
PROVIDERS: PCP Internal Medicine; Visit Provider Student in an Organized Health Care Education/Training Program
DX: E04.2 Nontoxic multinodular goiter (principal)
CPT/HCPCS: 10005; 88173; 88305

== ENCOUNTER → 2025-03-04 09:30 | Outpatient (BNV) | payer MEDICAID, SELFPAY | PROVIDERS: PCP Internal Medicine; Visit Provider Student in an Organized Health Care Education/Training Program | DX: E04.1 Nontoxic single thyroid nodule (principal) | CPT/HCPCS: 10005 ==

== ENCOUNTER 2025-03-18 12:24 | Outpatient (AMB) | payer MEDICAID, SELFPAY ==
[2025-03-18 12:25] VITALS: BP 116/76; PULSE 98; O2SAT 98; BMI 31.9
--- NOTE | 2025-03-18 12:25 | A.OFFVIS_ITS ---
Vital Signs 3 03/18/25 12:25 Height 5 ft Weight 163 lb 2.273 oz BMI 31.9 BP 116/76 Blood Pressure Location Lt brachial Position Sitting Pulse 98 Pulse Source Pulse Oximeter Pulse Oximetry (%) 98 Oxygen Delivery Method Room Air Intake Visit Reasons: Biopsy f/u Intake Note: Patient present today for biopsy follow up visit. Electric Motor Rebuilder Required: Yes Electric Motor Rebuilder Language: Intelligence Consultant Services: Electric Motor Rebuilder Present Electric Motor Rebuilder Name: Zion [id number] Information Interpreted: non-clinical & clinical Accompanied by: Spouse and daughter Allergies No Known Allergies Allergy (Verified 03/18/25 12:29) Medication List - Last Reconciled 03/18/25 by Sari Sapp MD bisacodyl (Dulcolax (bisacodyl)) 10 mg (2 x 5 mg) PO BEDTIME cholecalciferol (vitamin D3) 125 mcg PO DAILY polyethylene glycol 3350 (Miralax) 238 grams PO ONCE HPI Comments Details: 44-year-old female coming in today for follow up of nontoxic multinodular goiter. Diagnosed with thyroid nodules somewhere around 2013, was following with endo in [place] doesn remember where. Had FNA biopsy some 7 years ago in 2018 , per patient result was benign. And then she was lost to follow up . I dont have these records. Ultrasound thyroid done 04/25/2024 I reviewed the images myself which showed a right midpole 2.9 cm solid, hyperechoic nodule TR 3 category. 11/02/2024: FNA biopsy of the nodule was nondiagnostic, [place] category 1. Patient currently denies heat or cold intolerance, hair loss, , anxiety, weight changes, mood changes, changes in appearance of eyes or vision changes, tremors, increased diaphoresis or dry skin. ? Reports constipation, now better. reports intermittent palpitations and low energy Reports intermittent difficulty swallowing. Think voice is thicker. Patient denies pain on swallowing or difficulty breathing. Patient denies any history of childhood neck radiation. Denies having ever used lithium, amiodarone or biotin supplements. Patient denies any family history of thyroid cancer. 2 sisters and daughter have hypothyroidism. Interval history 03/04/2025: Status post FNA of the right midpole 2.9 cm solid hypoechoic TR 3 nodule, which came back as benign, [place] category 2. Physical exam General: sitting comfortably in no acute distress HEENT: normocephalic/atraumatic Neck: supple, palpable 1 cm right-sided nodule Cardiac: Regular Pulm: Normal pulmonary effort Abd: not distended, Laboratory Tests 10/20/24 08:22 TSH 1.75 US THYROID 04/25/24 CLINICAL INFORMATION: History of thyroid nodules. COMPARISON: None available. TECHNIQUE: Linear transducer grayscale and color Doppler examination with attention to the region of the thyroid. FINDINGS: SIZE: Measurements of the thyroid lobes and nodules are given in sagittal, anteroposterior and transverse dimensions respectively. Right Thyroid Lobe: 5.3 x 2.2 x 2.1 cm, volume 13.0 mL. Parenchyma: The gland echotexture is homogeneous. Thyroid vascularity is normal. Left Thyroid Lobe: 3.6 x 1.6 x 1.4 cm, volume 4.3 mL. Parenchyma: The gland echotexture is homogeneous. Thyroid vascularity is normal. Isthmus: 0.3 cm in maximum AP dimension. Estimated total number of nodules greater than or equal to 1 cm: 1. Floorworker Lasting nodules are described as follows: 1. Location: Right mid. Size: 4.3 x 2.9 x 1.6 cm, volume 4.4 mL. Nodule characteristics: Composition: Solid/almost completely solid (2). Echogenicity: Hyperechoic (1). Shape: Not taller than wide (0). Margins: Ill-defined (0). Echogenic Foci: None (0). ACR TI-RADS total points: 3 ACR TI-RADS category: 3 NODES: No lymphadenopathy is seen in the tissue surrounding the thyroid gland. US/US thyroid IMPRESSION: A 2.9 cm right midpole TR 3 thyroid nodule meets criteria for biopsy. Fine-needle aspiration recommended. [facility] Medical History (Updated 12/24/24 @ 15:47 by Sari Sapp MD) Multinodular goiter Constipation Family History Maternal Uncle Colon cancer Social History Alcohol intake: never Patient Tobacco Use Status: Never used Tobacco Physical Exam Vital Signs: Last Vital Signs Pulse 98 03/18/25 12:25 BP 116/76 03/18/25 12:25 Pulse Ox 98 03/18/25 12:25 Oxygen Delivery Method Room Air 03/18/25 12:25 BMI result Body Mass Index 31.9 Assessment & Plan Assessment & Plan (1) Multinodular goiter: Code(s): E04.2 - Nontoxic multinodular goiter Category: Medical Plan: 44-year-old female with no family history of thyroid cancer, with no personal history of head or neck radiation who is coming in today for 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 Diagnosed with thyroid nodules somewhere around 2013, was following with endo in [place] doesn remember where. Had FNA biopsy some 7 years ago in 2018 , per patient result was benign. And then she was lost to follow up . I dont have these records. Ultrasound thyroid done 04/25/2024 I reviewed the images myself which showed a right midpole 2.9 cm solid, hyperechoic nodule TR 3 category. 11/02/2024: FNA biopsy of the nodule was nondiagnostic, [place] category 1. No compressive symptoms, normal TSH from October 2024. 03/04/2025: Status post FNA of the right midpole 2.9 cm thyroid nodule. I discussed with the patient benign results he less than 3% risk of malignancy. At this point we will plan to repeat an ultrasound in 1 year. Plan: -ordered ultrasound of the thyroid to be done in February 2026 prior to follow up in March 2026 -ordered thyroid blood work to be done in February 2026 prior to follow up in March 2026 Plan See above Orders: Orders 2 US thyroid 02/22/26 E04.2 - Nontoxic multinodular goiter Free T4 (Free Thyroxine) 02/22/26 E04.2 - Nontoxic multinodular goiter Thyroid Stimulating Hormone 02/22/26 E04.2 - Nontoxic multinodular goiter Patient Instructions: Do ultrasound of the thyroid in February 2026, someone will call you to schedule this , please make sure this is done a few weeks prior to your next follow up with me in march 2026 Do thyroid blood work a few days prior to your next follow up in Mar 2026, orders are in H?gase chantal ecograf?a de tiroides en surjit 2025. Alguien le llamar? para programarla. Aseg?rese de que se realice unas semanas antes de fitzgerald pr?ximo seguimiento conmigo en 2025. H?gase un an?lisis de nader de tiroides unos d?as antes de fitzgerald pr?ximo seguimiento en 2025. Las ?rdenes est?n en proceso. Coding Level of Care Code Est Pt Level 3 (77527) Diagnoses Multinodular goiter E04.2
--- OUTSIDE RECORDS SUMMARY | 2025-03-18 14:56 | XMS_ITS | Encounter Summary ---
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 EFFECTIVE SINCE 04/18/2023 documented in this encounter Plan of Treatment Not on file documented as of this encounter Visit Diagnoses Not on filedocumented in this encounter Care Teams Supervisor Quilting Relationship Specialty Start Date End Date Name, MD Arden [address] [place] [address] PCP - General Internal Medicine 04/10/24 documented as of this encounter
--- OUTSIDE RECORDS SUMMARY | 2025-03-18 14:56 | XMS_ITS | Encounter Summary ---
Author Organization [employer] Address [address] [place] [address] Care Team Providers Care Cost Manager Name Role Phone Name, Arden WALDROP Primary Care Provider [phone] Encounter Details Date Type Department Care Team (Late st Contact Info) Description 11/10/2024 Orders Only [facility] [address] [facility] [place] [phone] Corie Fleming Social History Tobacco Use Types Packs/Day Years [...] as of this encounter Plan of Treatment Not on file documented as of this encounter Procedures Procedure Name Priority Date/Time Associated Diagnosis Comments CT SOFT TISSUE NECK W CONTRAST Routine 11/10/2024 5:58 PM EDT BASIC METABOLIC PANEL Routine 11/10/2024 4:07 PM EDT CYTOPATH-CELL ENHANCED Routine 11/10/2024 11:10 AM EDT HPV MRNA E6/E7 REFLEX TO HPV 16, 18/45 Routine 05/26/2024 12:00 AM EST documented in this encounter Results * CT Soft Tissue Neck w/ Contrast (11/10/2024 5:58 PM EDT) Anatomical Region Laterality Modality Head, Neck Computed Tomogra phy 11/10/2024 5:58 PM EDT Narrative 11/10/2024 5:59 PM EDT [place] [address] [address] Scan Report Signed Patient: Ara Barraza MR#: [id number] : 1980 Acct:[id number] Age/Sex: 44 / F ADM Date: 11/10/24 Loc: .ED Attending Dr: Ordering Physician: Le Haskins MD Date of Service: 11/10/24 Procedure(s): CT soft tissue neck w IV con Accession Number(s): [id number] cc: Ellyn Ruiz MD; Le Haskins MD Report Number: [id number]: Total DLP = 460.00 mGy-cm CLINICAL HISTORY: [...] in OV> 11/10/241757 DD/ 57 TD/TT: 11/10/241757 Shingles Roofer Helper: Procedure Note Donotuseinterpreter, Image - 11/10/[address] [place] [address] [address] Scan Report Signed Patient: Ara BarrazaMR#: [id number] : 1980Acct:[id number] Age/Sex: 44 / FADM Date: 11/10/24 Loc: .ED Attending Dr: Ordering Physician: Le Haskins MD Date of Service: 11/10/24 Procedure(s): CT soft tissue neck w IV con Accession Number(s): [id number] cc: Ellyn Ruiz MD; Le Haskins MD Report Number: [id number]: Total DLP = 460.00 mGy-cm CLINICAL HISTORY: [...] in OV> 11/10/241757 DD/ 57 TD/TT: 11/10/241757 Shingles Roofer Helper: [facility] External Provider IMG CT PROCEDURES Final Result * (ABNORMAL) Basic Metabolic Panel (11/10/2024 4:07 PM EDT) Sodium 141 135 - 145 mmol/L [facility] Potassium 4.0 3.3 - 5.1 mmol/L [facility] Chloride 105 96 - 108 mmol/L [facility] Carbon Dioxide 25 22 - 29 mmol/L [facility] Anion Gap 15 12 - 20 [facility] Urea Nitrogen (BUN) 10 9 - 16 mg/dL [facility] Creatinine, Serum 0.74 0.5 - 1.4 mg/dL [facility] Creatinine Clr Calc Pharmacy 81.4 [facility] Comment:Provided height and weight: 152.4 cm,67.585 kg.eGFR (calculated from the MDRD study equation) and eCrCl(calculated from the Cockcroft-Gault equation) are based ondifferent parameters and may not yield comparable results.If eCrCl result is absurd, please check patient'sheight/weight. Estimated Glomerular Filt Rate >60 [facility] Comment:Chronic Kidney Disea se: Estimated GFR < 60 mL/min/1.22n7Rqravi Kidney Disease: Estimated GFR < 15 mL/min/1.73m2 Glucose 136(H) 60 - 115 mg/dL [facility] Calcium 9.5 8.4 - 10.2 mg/dL [facility] 11/10/2024 4:07 PM EDT 11/10/2024 4:13 PM EDT us Generic External Data Provider LAB BLOOD ORDERAB LES Final Result [facility] [address] [place] [phone] * Cytopath-cell enhanced (11/10/2024 11:10 AM EDT) 11/10/2024 11:1 0 AM EDT 11/10/2024 11:38 AM EDT Narrative [facility] - 11/11/2024 7:59 AM EDT ----- ------- Name: Ara Barraza Age/Sex: 44/F : 1980 Unit#: [id number] Attend Dr: Arden Mcpherson MD Re11/10/24 Status: DEP REF Location: [facility] Disch: ----- ------- SPEC : [id number] RECD: 11/10/24 STATUS: GUILLERMO WAN NUM: [id number] MARIAN: 11/10/24-[address]: Bubba Meyer MD ENTERED: 11/10/24-1211 SP TYPE: Cytology OTHR DR: Arden Mcpherson MD ORDERED: Cyto-enhanced Diagnosis Thyroid, right nodule, fine needle aspiration: Non-diagnostic ([place] category I). COMMENT: Rare groups of follicular epithelial cells in a macrofollicular arrangement are present, too few for diagnostic purposes. Colloid is present as well as pigment laden macrophages and blood. Clinical History Nodule, had biopsy 5 years ago at [facility], results unknown Material Received Right thyroid nodule Gross Description Received are 28 cc of very light bloody tinged CytoLyt fluid from which a ThinPrep slide is prepared. A Copies To: Bubba Meyer MD [address] [place] [phone] Name,Arden WALDROP [address] [place] [address] ----- ------- Signed (signature on file) Skip Sorensen MD 11/11/24 0759 ----- ------- END OF REPORT us Generic External Data Provider LAB CYTOLOGY LINDA SHOOK Final Result Performing Organization Address [facility]/ZIP Co de Phone Number [facility] [address] [place] [phone] * HPV mRNA E6/E7 w/Reflex to HPV Genotypes 16, 18/45 (05/26/2024 12:00 AM EST) Historical Provider LAB CYTOLOGY ORDERABLES F inal Result Performing Organization Address [facility]/ZIP Co de Phone Number [facility] [address] [place] [phone] documented in this encounter Visit Diagnoses Not on filedocumented in this encounter Additional Health Concerns Assessment Noted Time PHQ-9 Depression Total Score: 0 04/10/20 24 11:26 AM EDT documented as of this encounter Care Teams Cost Manager Relationship Specialty Start Date End Date Name, MD Arden [address] [place] [address] PCP - General Internal Medicine 04/10/24 documented as of this encounter
--- OUTSIDE RECORDS SUMMARY | 2025-03-18 14:57 | XMS_ITS | Clinical Summary ---
Author Organization [employer] Address [address] [place] [address] Care Team Providers Care Processor Inspector Name Role Phone Name, Arden WALDROP Primary Care Provider [phone] Allergies No known active allergies Medications ketotifen [...] Encounters Date Type Department Care Team Description 03/04/2025 Orders Only GENERIC EXTERNAL DATA DEPARTMENT Provider, [...] Procedure Name Priority Date/Time Associated Diagnosis Comments CELL BLOCK Routine 03/04/2025 10:22 AM EDT PAP SMEAR Routine 05/26/2024 4:43 [...] Recently Relevant to Health Maintenance Results * Cell Block (03/04/2025 10:22 AM EDT) 03/04/2025 10:2 2 AM EDT 03/04/2025 11:30 AM EDT [facility] - 03/05/2025 3:28 PM EDT ----- ------- Name: Ara Barraza Age/Sex: 44/F : 1980 [facility] [id number] Unit#: [id number] Attend Dr: Sari Sapp MD Re03/04/25 Status: [facility] REF Location: [facility] Disch: ----- ------- SPEC : [id number] RECD: 03/04/25-1130 STATUS: [facility] NUM: [id number] MARIAN: 03/04/25-[address] [facility] [address]: Sari Sapp MD ENTERED: 03/04/25-1204 SP TYPE: Cytology OTHR DR: Ellyn Ruiz MD ORDERED: Cell Block, Fine Ndl Asp Diagnosis Thyroid, right mid pole nodule, fine needle aspiration biopsy (cytology and cell block): -[place] [facility] Classification: Benign (category 2) -Description: Benign follicular cells (mixed normal and micro-follicles), rare Hurthle cell change, scattered hemosiderin-laden macrophages, scant colloid, and abundant blood. Clinical History Right mid pole 2.9cm thyroid nodule FNA biopsy Material Received Right mid pole 2.9cm thyroid nodule FNA biopsy Gross Description Received is 30 cc of bloody tinged cytolyt fluid from which a ThinPrep slide and cell block are prepared. IHC S/NG Disclaimer NOTE: Unless otherwise stated, all tissue is formalin-fixed and paraffin-embedded. Some or all of the immunohistochemical tests reported herein may have been developed and their performance characteristics determined by [facility]. They have not been cleared or approved by the U.S. Food and Drug Administration (FDA). However, the FDA has determined that such clearance or approval is not necessary. This laboratory is certified under the Clinical Laboratory Improvement Amendments of 1988 (CLIA) as qualified to perform high complexity clinical laboratory testing. Copies To: Ellyn Ruiz MD [address] [phone] Sari Sapp MD [facility] Endocrinology [address] [place] [address] [address] [place], [place] [phone] CONTINUED ON NEXT PAGE ----- ------- Name: Ara Barraza Age/Sex: 44/F : 1980 Unit#: [id number] Attend Dr: Sari Sapp MD Re03/04/25 Status: DEP REF Location: [facility] Disch: ----- ------- SPEC : [id number] RECD: 03/04/25-1130 STATUS: GUILLERMO WAN NUM: [id number] MARIAN: 03/04/25-[address] [facility] [address]: Sari Sapp MD ENTERED: 03/04/25-1204 SP TYPE: Cytology OTHR DR: Ellyn Ruiz MD ORDERED: Cell Block, Fine Ndl Asp Copies To: (Continued) [email or web address] ----- ------- Signed (signature on file) Romelia Piper 03/05/25 1528 ----- ------- END OF REPORT us Generic External Data Provider LAB CYTOLOGY LINDA SHOOK Final Result Performing Organization Address City/State/[facility] Co de Phone Number [facility] [address] [place] [phone] * Pap Smear (05/26/2024 4:43 PM EST) Swab 05/26/2024 4:43 PM EST 05/27/2024 9:00 AM EST Narrative [facility] - 05/29/2024 8:49 AM EST ----- ------- Name: Felisa Barraza Age/Sex: 44/F : 1980 Unit#: [id number] Attend Dr: Re05/26/24 Status: PRE REF Location: [facility] Disch: ----- ------- SPEC : [id number] RECD: 05/27/24 STATUS: GUILLERMO WAN NUM: [id number] MARIAN: 05/26/[address] [facility] [address]: Cheyanne Spann NP ENTERED: 05/27/24 SP TYPE: Pap Smr OT DR: ORDERED: Pap Smear Interpretation Satisfactory for evaluation. Negative for intraepithelial lesion or malignancy. HPV High Risk: Negative HPV Genotyping 16: Negative HPV Genotyping 18: Negative Clinical Information LMP: 05/12/2024 Previous PAP test: Unknown date, WNL Material Received ThinPrep-Cervical ----- ------- Signed (signature on file) CHICO Bob (ASCP) 05/29/24 0849 ----- ------- END OF REPORT us Cheyanne Spann NP LAB CYTOLOGY ORDERABLES Final Re sult [facility] [address] [place] [phone] * HPV mRNA E6/E7 w/Reflex to HPV Genotypes 16, 18/45 (05/26/2024 12:00 AM EST) us Historical Provider LAB CYTOLOGY ORDERABLES F inal Result [facility] [address] [place] [phone] * BI Mammogram Screening Tomosynthesis Bilateral (05/02/2024 3:25 PM EDT) Anatomical Region Laterality Modality Breast Bilateral Mammography 05/02/2024 3:25 PM EDT Narrative 05/14/2024 4:06 PM EDT [address] [place] [address] Mammography Report Signed Patient: Felisa Barraza MR#: [id number] : 1980 Acct:[id number] Age/Sex: 44 / F ADM Date: 05/02/24 Loc: HO.MAMMO Attending Dr: Arden Mcpherson MD Ordering Physician: Arden Mcpherson MD Results: 1Negative Date of Service: 05/02/24 Follow Up: 1 Year From Orig inal Mammogram Procedure(s): MM tomosynthesis screening BI Accession Number(s): [id number] cc: Arden Mcpherson MD EXAMINATION: MM SCREENING [...] 05/14/24 1603 DD/ 1525 TD/TT: 05/02/24 1530 Manager Care Management: Procedure Note Donotmaryter, Image - 05/14/[facility] [address] [place] [address] Mammography Report Signed Patient: Felisa BarrazaMR#: [id number] : 1980Acct:[id number] Age/Sex: 44 / FADM Date: 05/02/24 Loc: HO.MAMMO Attending Dr: Arden Mcpherson MD Ordering Physician: Arden Mcphersonesults: 1Negative Date of Service: 05/02/24Follow Up: 1 Year From Orig inal Mammogram Procedure(s): MM tomosynthesis screening BI Accession Number(s): [id number] cc: Arden Mcpherson MD EXAMINATION: MM SCREENING [...] 05/14/24 1603 DD/ 1525 TD/TT: 05/02/24 1530 Manager Care Management: us Arden Name IMG BI PROCEDURES Final Result * Lipid Panel, Standard (04/11/2024 8:07 AM EDT) Triglycerides 74 <150 mg/dL [facility] Comment:Desirable Triglyceri de: less than 150 mg/dLBorderline High Triglyceride 150-199 mg/dLHigh Triglyceride: 200-499 mg/dLVery High Triglyceride: greater than or equal to 5OO mg/dL Cholesterol 175 <200 mg/dL [facility] Comment:Desirable Cholestero l: less than 200 mg/dLBorderline High Cholesterol: 200-239 mg/dLHigh Cholesterol: greater than 239 mg/dL LDL Cholesterol Calculated 94 <100 mg/dL [facility] Comment:Desirable LDL: less than 100 mg/dLNear Optimal/Above Optimal LDL: 110- 129 mg/dLBorderline High LDL: 130-159 mg/dLHigh LDL: 160-189 mg/dLVery High LDL: greater than or equal to 190 mg/dL HDL Cholesterol 67 >40 mg/dL [facility] Comment:Desirable HDL: great er than 40 mg/dL Note: This HDL assay may give artificially low results in patients with liver disease. Blood Venous blood specimen / Unknown 04/11/2024 8:07 AM EDT 04/11/2024 11:38 AM EDT us Arden Mcpherson MD LAB BLOOD ORDERABLES Final Resul t [facility] [address] [place] [address] [phone] from Last 3 Months or Most Recently Relevant to Health Maintenance Insurance [facility] C3 Care Teams Processor Inspector Relationship Specialty Start Date End Date Name, MD Arden [address] [place] [address] PCP - General Internal Medicine 04/10/24
== END 2025-03-18 13:10 | disposition home or self-care (01) ==
LOC: HO.ENCR 12:24
PROVIDERS: PCP Internal Medicine; Visit Provider Student in an Organized Health Care Education/Training Program
DX: E04.2 Nontoxic multinodular goiter (principal)
CPT/HCPCS: 99213

== ENCOUNTER → 2025-03-18 12:24 | Outpatient (BNVA) | payer MEDICAID, SELFPAY | PROVIDERS: PCP Internal Medicine; Visit Provider Student in an Organized Health Care Education/Training Program | DX: E04.2 Nontoxic multinodular goiter (principal) | CPT/HCPCS: 99212 ==